=== PATIENT | female | born 1975 | race American Indian/Alaskan Native ===

== ENCOUNTER 2016-10-03 19:22 | Emergency (ER) | payer MEDICARE ==
--- NOTE | 2016-10-03 20:10 | Emergency Department Report ---
Chief Complaint: Chest Pain Stated Complaint: HEAD PAIN Time Seen by Provider: 10/03/16 20:04 - HPI History of Present Illness: 41-year-old female comes in for complaint of head pain chest pain. She reports that her headache and chest pain has started about an hour ago. She does admit to urinating a lot denies any nausea vomiting or diarrhea. Patient has a past medical history of bipolar. She has been out of her Benztropine and Simvastatin. - Exam Vital Signs: Vital Signs 10/03/16 20:00 Temperature 97.9 F Pulse Rate 81 Respiratory 18 Rate Blood Pressure 123/55 O2 Sat by Pulse 100 Oximetry Physical Exam: Since alert pressure speech little shaky fine tremors, cardiovascular S1-S2 regular rate and rhythm respiratory she is clear to auscultation bilateral neuro heal to leigh intact Romberg intact tongue protrusion with deviation to the right and left is intact able to shrug shoulders gag reflex intact. MSE screening note: Focused history and physical exam performed. Due to findings the following was ordered: ED Disposition for MSE Condition: Stable
[2016-10-03 20:47] LABS: Anion Gap 19 mmol/L; BUN/Creatinine Ratio 21.42; Basophils % (Auto) 0.8 % (0.0-1.8); Blood Urea Nitrogen 15 mg/dL (7-17); Calcium 9.4 mg/dL (8.4-10.2); Carbon Dioxide 20 mmol/L (22-30); Chloride 98.8 mmol/L (98-107); Eosinophils % (Auto) 1.2 % (0.0-4.3); Glucose 85 mg/dL (65-100); Hematocrit 42.5 % (30.3-42.9); Hemoglobin 14.2 gm/dl (10.1-14.3); Mean Corpuscular HGB Conc 33 % (30-34); Mean Corpuscular Hemoglobin 30 pg (28-32); Mean Corpuscular Volume 90 fl (79-97); Platelet Count 229 K/mm3 (140-440); Red Blood Count 4.73 M/mm3 (3.65-5.03); Red Cell Distribution Width 15.1 % (13.2-15.2); Sodium 132 mmol/L (137-145); White Blood Count 8.5 K/mm3 (4.5-11.0)
[2016-10-03 20:55] LABS: Potassium 5.6 mmol/L (3.6-5.0)
[2016-10-04] MEDS ORDERED: FLEXERIL PO ONE (00:46)
--- NOTE | 2016-10-04 00:53 | Emergency Department Report ---
ED General Adult HPI - General Chief complaint: Chest Pain Stated complaint: HEAD PAIN Time Seen by Provider: 10/03/16 20:04 Source: patient Mode of arrival: Ambulatory Limitations: No Limitations - History of Present Illness Initial comments: 41-year-old female presents to the emergency department complaining of headache and chest pain. Headache is been present for approximately one day. Patient describes a tightness and throbbing in the back of her head. She reports associated blurry vision. She denies numbness or tingling. She is also complaining of chest pain that began approximately 30 minutes prior to arrival. Patient states she has had similar pains for the past several weeks. She recently underwent testing including nuclear medicine testing on her heart at [facility]. Patient describes sharp pain in center of her chest that does not radiate. She denies associated shortness of breath, diaphoresis, nausea, or vomiting. There are no other complaints. -: Gradual, days(s) (1) Location: head, chest Radiation: non-radiation Severity scale (0 -10): 8 Quality: sharp, other (tightness) Consistency: intermittent Improves with: none Worsens with: none Associated Symptoms: denies other symptoms - Related Data Previous Rx's Medication Instructions Recorded Last Taken Type Ranitidine HCl [Zantac 300 MG TAB] 300 mg PO QPM #20 tablet 08/09/16 Unknown Rx Cyclobenzaprine [Flexeril] 10 mg PO TID PRN #30 tablet 10/04/16 Unknown Rx Allergies Allergy/AdvReac Type Severity Reaction Status Date / Time acetaminophen [From Midol] Allergy Unknown Verified 08/09/16 12:45 haloperidol [From Haldol] Allergy Unknown Verified 08/09/16 12:45 haloperidol lactate Allergy Unknown Verified 08/09/16 12:45 [From Haldol] hydroxyzine HCl Allergy Unknown Verified 08/09/16 12:45 [From Vistaril] hydroxyzine pamoate Allergy Unknown Verified 08/09/16 12:45 [From Vistaril] iodine Allergy Headache Verified 08/09/16 12:45 pamabrom [From Midol] Allergy Unknown Verified 08/09/16 12:45 Sulfa (Sulfonamide Allergy Unknown Verified 08/09/16 12:45 Antibiotics) zolpidem tartrate Allergy Unknown Verified 08/09/16 12:45 [From Ambien] latex AdvReac Itching Verified 08/09/16 12:46 lorazepam [From Ativan] AdvReac Hives Verified 08/09/16 12:45 potassium AdvReac Swelling Verified 08/09/16 12:45 risperidone [From Risperdal] AdvReac Unknown Verified 08/09/16 12:45 ED Review of Systems ROS: Stated complaint: HEAD PAIN Other details as noted in HPI Comment: All other systems reviewed and negative Eyes: vision change Cardiovascular: chest pain Neurological: headache ED Past Medical Hx - Past Medical History Previous Medical History?: Yes Hx Hypertension: Yes Hx Deep Vein Thrombosis: Yes Hx Seizures: Yes Hx Psychiatric Treatment: Yes (bipolar / SCHIZOAFFECTIVE DISORDER) - Surgical History Past Surgical History?: Yes Hx Cholecystectomy: Yes Additional Surgical History: hysterectomy. cervical fusion - Family History Family history: no significant - Social History Smoking Status: Never Smoker Substance Use Type: None - Medications Home Medications: Home Medications Medication Instructions Recorded Confirmed Last Taken Type Ranitidine HCl [Zantac 300 MG TAB] 300 mg PO QPM #20 tablet 08/09/16 10/04/16 Unknown Rx Cyclobenzaprine [Flexeril] 10 mg PO TID PRN #30 tablet 10/04/16 Unknown Rx ED Physical Exam - General Limitations: No Limitations General appearance: alert, in no apparent distress - Head Head exam: Present: atraumatic, normocephalic - Eye Eye exam: Present: normal appearance, PERRL, EOMI - ENT ENT exam: Present: normal exam, normal orophraynx, mucous membranes moist - Neck Neck exam: Present: normal inspection, tenderness (posterior cervical tenderness bilaterally extending into the occiput. No midline cervical tenderness noted.), full ROM - Respiratory Respiratory exam: Present: normal lung sounds bilaterally. Absent: respiratory distress, chest wall tenderness - Cardiovascular Cardiovascular Exam: Present: regular rate, normal rhythm, normal heart sounds - GI/Abdominal GI/Abdominal exam: Present: soft, normal bowel sounds. Absent: distended, tenderness - Extremities Exam Extremities exam: Present: normal inspection, full ROM. Absent: tenderness - Back Exam Back exam: Present: normal inspection, full ROM. Absent: tenderness - Neurological Exam Neurological exam: Present: alert, oriented X3. Absent: motor sensory deficit - Skin Skin exam: Present: warm, dry, intact ED Course Vital Signs 10/03/16 10/04/16 20:00 00:16 Temperature 97.9 F 98.4 F Pulse Rate 81 81 Respiratory 18 18 Rate Blood Pressure 123/55 Blood Pressure 110/66 [Left] O2 Sat by Pulse 100 100 Oximetry ED Medical Decision Making - Lab Data Result diagrams: 10/03/16 20:16 10/03/16 20:16 - EKG Data -: EKG Interpreted by Me EKG shows normal: sinus rhythm, axis, intervals, QRS complexes, ST-T waves Rate: normal - EKG Data When compared to previous EKG there are: no significant change Interpretation: normal EKG, unchanged when compared t (08/09/2016) - Medical Decision Making Lab results reviewed and discussed with the patient. Patient with muscle spasm likely causing her head pain. She has had a normal ECG with 2 negative troponins. Patient will be discharged home at this time to follow up with her primary care physician. - Differential Diagnosis atypical chest pain, tension-type headache, muscle spasm Critical care attestation.: If time is entered above; I have spent that time in minutes in the direct care of this critically ill patient, excluding procedure time. ED Disposition Clinical Impression: Muscle spasms of neck Disposition: DISCHARGED TO HOME OR SELFCARE Is pt being admited?: No Condition: Stable Instructions: Muscle Spasm (ED) Prescriptions: Cyclobenzaprine [Flexeril] 10 mg PO TID PRN #30 tablet PRN Reason: Muscle Spasm Referrals: PRIMARY CARE, [Primary Care Provider] - 3-5 Days Time of Disposition: 00:58
[2016-10-04 01:14] VITALS: BP 104/53
== END 2016-10-04 01:25 | disposition home or self-care (01) ==
LOC: ED 19:22
DX: M62.838 Other muscle spasm (principal); I10 Essential (primary) hypertension; R56.9 Unspecified convulsions; F31.9 Bipolar disorder, unspecified; F25.9 Schizoaffective disorder, unspecified; Z86.718 Personal history of other venous thrombosis and embolism; Z90.49 Acquired absence of other specified parts of digestive tract; Z90.710 Acquired absence of both cervix and uterus; Z88.2 Allergy status to sulfonamides; Z88.6 Allergy status to analgesic agent; Z91.040 Latex allergy status; Z88.8 Allergy status to other drugs, medicaments and biological substances
CPT/HCPCS: 36415; 80048; 84484; 85025; 93005; 93010; 99284

== ENCOUNTER 2016-12-03 08:18 | Inpatient (IN) | payer MEDICARE ==
[2016-12-03 09:47] LABS: Basophils % (Auto) 0.9 % (0.0-1.8); Hematocrit 43.4 % (30.3-42.9); Hemoglobin 14.1 gm/dl (10.1-14.3); Mean Corpuscular HGB Conc 33 % (30-34); Mean Corpuscular Hemoglobin 29 pg (28-32); Mean Corpuscular Volume 89 fl (79-97); Platelet Count 192 K/mm3 (140-440); Red Cell Distribution Width 15.1 % (13.2-15.2)
[2016-12-03 10:00] LABS: Alanine Aminotransferase 11 units/L (7-56); Albumin 4.3 g/dL (3.9-5); Albumin/Globulin Ratio 1.2 %; Alkaline Phosphatase 66 units/L (35-129); Anion Gap 16 mmol/L; Bilirubin,Total 0.5 mg/dL (0.1-1.2); Blood Urea Nitrogen 9 mg/dL (7-17); Calcium 10.3 mg/dL (8.4-10.2); Carbon Dioxide 23 mmol/L (22-30); Chloride 99.7 mmol/L (98-107); Glucose 94 mg/dL (65-100); Lipase 22 units/L (13-60); Potassium 4.4 mmol/L (3.6-5.0); Sodium 134 mmol/L (137-145); Total Protein 7.9 g/dL (6.3-8.2)
[2016-12-03 10:01] LABS: Bilirubin,Urine NEG (Negative); Blood,Urine NEG (Negative); Ketones,Urine NEG (Negative); Leukocyte Esterase,Urine NEG (Negative); Mucus,Urine FEW /HPF; Nitrite,Urine NEG (Negative); Protein,Urine <15 mg/dL mg/dL (Negative); RBC,Urine < 1.0 /HPF (0.0-6.0); Urobilinogen,Urine < 2.0 mg/dL (<2.0); WBC,Urine < 1.0 /HPF (0.0-6.0)
--- NOTE | 2016-12-03 15:40 | Emergency Department Report ---
HPI - General Chief Complaint: Abdominal Pain Time Seen by Provider: 12/03/16 15:05 - HPI HPI: Room 17 The patient is a 41-year-old female presenting with a chief complaint of abdominal pain and swelling in addition to bilateral lower extremity pain and swelling. The patient states for 1 week she has had intermittent pain in the periumbilical region of the abdomen. Patient denies dysuria or hematuria. Patient denies nausea vomiting. Patient dishes also had bilateral lower extremity swelling. Patient states she noticed a weight gain and having hard stool. Patient denies suicidal or homicidal ideation. Patient denies auditory or visual hallucinations Location: [see above] Duration: One week Quality: Pain Severity: Moderate Modifying factors: [see above] Context: [see above] Mode of transportation: Unknown ED Past Medical Hx - Past Medical History Hx Hypertension: Yes Hx Congestive Heart Failure: Yes Hx Deep Vein Thrombosis: Yes Hx Seizures: Yes Hx Psychiatric Treatment: Yes (bipolar / SCHIZOAFFECTIVE DISORDER) - Surgical History Hx Cholecystectomy: Yes Additional Surgical History: hysterectomy. cervical fusion - Family History Family history: no significant - Social History Smoking Status: Never Smoker Substance Use Type: None - Medications Home Medications: Home Medications Medication Instructions Recorded Confirmed Last Taken Type Benztropine [Cogentin] 1 mg PO BID 12/03/16 12/03/16 12/03/16 07:00 History 1 MG Assaria Carbonate [Eskalith] 300 mg PO BID 12/03/16 12/03/16 12/03/16 07:00 History 300MG Multivitamin/Ferrous Sulfate 18 mg PO DAILY 12/03/16 12/03/16 Unknown History [One-Daily Cofov-Opo-Stji Tab] Pediatric Multivit Comb No.76 1 each PO DAILY 12/03/16 12/03/16 Unknown History [Flintstones Complete] Simvastatin [Zocor TAB] 40 mg PO QHS 12/03/16 12/03/16 Unknown History Ziprasidone HCl [Geodon] 80 mg PO QHS 12/03/16 12/03/16 Unknown History fluPHENAZine HCL [fluPHENAZine] 10 mg PO DAILY 12/03/16 12/03/16 12/03/16 07:00 History 10MG ED Review of Systems ROS: Stated complaint: ABD AREA SWOLLEN /LEGS Other details as noted in HPI Comment: All other systems reviewed and negative Constitutional: denies: chills, fever Eyes: denies: eye pain, eye discharge, vision change ENT: denies: ear pain, throat pain Respiratory: denies: cough, shortness of breath, wheezing Cardiovascular: denies: chest pain, palpitations Endocrine: no symptoms reported Gastrointestinal: abdominal pain. denies: nausea, vomiting Genitourinary: denies: urgency, dysuria, discharge Musculoskeletal: denies: back pain, joint swelling, arthralgia Skin: denies: rash, lesions Neurological: denies: headache, weakness, paresthesias Psychiatric: denies: auditory hallucinations, visual hallucinations, homicidal thoughts, suicidal thoughts Hematological/Lymphatic: denies: easy bleeding, easy bruising Physical Exam - Physical Exam Vital Signs: Vital Signs 12/03/16 12/03/16 08:45 14:50 Temperature 97.4 F L 98.5 F Pulse Rate 84 79 Respiratory 18 22 Rate Blood Pressure 131/86 Blood Pressure 127/74 [Left] O2 Sat by Pulse 100 98 Oximetry Physical Exam: GENERAL: The patient is well-developed well-nourished female lying on stretcher not appearing to be in acute distress. [] HEENT: Normocephalic. Atraumatic. Extraocular motions are intact. Patient has moist mucous membranes. NECK: Supple. Trachea midline CHEST/LUNGS: Clear to auscultation. There is no respiratory distress noted. HEART/CARDIOVASCULAR: Regular. There is no tachycardia. There is no gallop rub or murmur. ABDOMEN: Abdomen is soft, without rebound or guarding. Patient has normal bowel sounds. There is no abdominal distention. SKIN: There is no rash. There is no edema. There is no diaphoresis. NEURO: The patient is awake, alert, and oriented. The patient is cooperative. The patient has normal speech MUSCULOSKELETAL:There is no evidence of acute injury. ED Course Vital Signs 12/03/16 12/03/16 08:45 14:50 Temperature 97.4 F L 98.5 F Pulse Rate 84 79 Respiratory 18 22 Rate Blood Pressure 131/86 Blood Pressure 127/74 [Left] O2 Sat by Pulse 100 98 Oximetry - Consultations Consultation #1: 12/03/16 18:09 Poison control called 12/03/16 18:18 Was control recommends checking lithium level every 6 hours until downtrending 2 into the therapeutic range (less than 1.2). Recommends treating seizures with benzodiazepine as needed ED Medical Decision Making - Lab Data Result diagrams: 12/03/16 09:22 12/03/16 09:22 Laboratory Tests 12/03/16 12/03/16 12/03/16 09:22 09:22 09:22 WBC 6.0 RBC 4.90 Hgb 14.1 Hct 43.4 H MCV 89 MCH 29 MCHC 33 RDW 15.1 Plt Count 192 Lymph % (Auto) 25.6 [place] % (Auto) 10.1 H Eos % (Auto) 1.0 Baso % (Auto) 0.9 Lymph # 1.5 [place] # 0.6 Eos # 0.1 Baso # 0.1 Seg Neutrophils % 62.4 Seg Neutrophils # 3.8 Sodium 134 L Potassium 4.4 Chloride 99.7 Carbon Dioxide 23 Anion Gap 16 BUN 9 Creatinine 0.6 L Estimated GFR > 60 BUN/Creatinine Ratio 15.00 Glucose 94 Calcium 10.3 H Total Bilirubin 0.5 AST 15 ALT 11 Alkaline Phosphatase 66 Troponin T < 0.010 NT-Pro-B Natriuret Pep Total Protein 7.9 Albumin 4.3 Albumin/Globulin Ratio 1.2 Lipase 22 Urine Color Urine Turbidity Urine pH Ur Specific [place] Urine Protein Urine Glucose (UA) Urine Ketones Urine Blood Urine Nitrite Urine Bilirubin Urine Urobilinogen Ur Leukocyte Esterase Urine WBC (Auto) Urine RBC (Auto) U Epithel Cells (Auto) Urine Mucus Assaria 12/03/16 12/03/16 12/03/16 09:22 09:32 13:16 WBC RBC Hgb Hct MCV MCH MCHC RDW Plt Count Lymph % (Auto) [place] % (Auto) Eos % (Auto) Baso % (Auto) Lymph # [place] # Eos # Baso # Seg Neutrophils % Seg Neutrophils # Sodium Potassium Chloride Carbon Dioxide Anion Gap BUN Creatinine Estimated GFR BUN/Creatinine Ratio Glucose Calcium Total Bilirubin AST ALT Alkaline Phosphatase Troponin T < 0.010 NT-Pro-B Natriuret Pep 13.21 Total Protein Albumin Albumin/Globulin Ratio Lipase Urine Color Yellow Urine Turbidity Clear Urine pH 7.[address] 1.013 Urine Protein <15 mg/dl Urine Glucose (UA) Neg Urine Ketones Neg Urine Blood Neg Urine Nitrite Neg Urine Bilirubin Neg Urine Urobilinogen < 2.0 Ur Leukocyte Esterase Neg Urine WBC (Auto) < 1.0 Urine RBC (Auto) < 1.0 U Epithel Cells (Auto) 3.0 Urine Mucus Few [place] 03/16/17 03/16/17 15:04 15:43 WBC RBC Hgb Hct MCV MCH MCHC RDW Plt Count Lymph % (Auto) [place] % (Auto) Eos % (Auto) Baso % (Auto) Lymph # [place] # Eos # Baso # Seg Neutrophils % Seg Neutrophils # Sodium Potassium Chloride Carbon Dioxide Anion Gap BUN Creatinine Estimated GFR BUN/Creatinine Ratio Glucose Calcium Total Bilirubin AST ALT Alkaline Phosphatase Troponin T < 0.010 NT-Pro-B Natriuret Pep Total Protein Albumin Albumin/Globulin Ratio Lipase Urine Color Urine Turbidity Urine pH Ur Specific [place] [address] Urine Protein Urine Glucose (UA) Urine Ketones Urine Blood Urine Nitrite Urine Bilirubin Urine Urobilinogen Ur Leukocyte Esterase Urine WBC (Auto) Urine RBC (Auto) U Epithel Cells (Auto) Urine Mucus [place] 2.1 H* - EKG Data -: EKG Interpreted by Me EKG shows normal: sinus rhythm Rate: normal - EKG Data When compared to previous EKG there are: no significant change Interpretation: unchanged when compared t (10/03/2016), nonspecific ST-T wave gaby - Radiology Data Radiology results: report reviewed (CT abdomen and pelvis, bilateral lower extremity Doppler), image reviewed (CT abdomen and pelvis, bilateral lower extremity Doppler) CT abdomen and pelvis (read by radiologist)-no acute inflammatory processes identified. No evidence of hydronephrosis or ureterolithiasis. Mild to moderate volume of stool is seen throughout the colon suggesting constipation. Bilateral lower extremity Doppler (read by the technologist)- CHRONIC DVT NOTED IN LT SFV (ELMER), VESSEL ALSO APPEARS ATRETIC - Differential Diagnosis DVTs, gastritis, pancreatitis Critical care attestation.: If time is entered above; I have spent that time in minutes in the direct care of this critically ill patient, excluding procedure time. ED Disposition Clinical Impression: Assaria toxicity, Chronic deep vein thrombosis (DVT) of lower extremity Disposition: OP ADMITTED IP TO THIS HOSP Is pt being admited?: Yes Does the pt Need Aspirin: Yes Condition: Stable Instructions: Abdominal Pain (ED) Referrals: PRIMARY CARE, [Primary Care Provider] - 3-5 Days Time of Disposition: 18:22 (hospitalist notified)
--- NOTE | 2016-12-03 16:52 | Cat Scan Report ---
FINAL REPORT PROCEDURE: CT ABDOMEN PELVIS WO CON TECHNIQUE: Computerized axial tomography of the abdomen and pelvis was performed without intravenous contrast. This study is performed without intravascular contrast material and its sensitivity for abdominal and pelvic pathology, including neoplasms, inflammation, abscess, free fluid, thrombosis, arterial dissection and infarction, is reduced compared with a contrast enhanced study. HISTORY: periumbilical abdominal pain COMPARISON: No prior studies are available for comparison. FINDINGS: Visualized lower thorax: No significant abnormality. Liver: Normal size and attenuation. Spleen: Normal size and attenuation. Gallbladder and biliary system: There has been cholecystectomy. Pancreas: Normal. Adrenals: Normal. Kidneys: Normal. GI tract: The appendix is visualized and does not appear inflamed. No bowel obstruction or acute inflammation is seen. There is mild to moderate volume of stool in the colon Lymph nodes and mesentery: Normal. Vasculature: Normal. Bladder: Normal. Reproductive organs: Uterus is not visualized. Peritoneum: No free fluid. Musculoskeletal structures: No significant abnormality. Other: None. IMPRESSION: No acute inflammatory process is identified. No evidence of hydronephrosis or urolithiasis. Mild to moderate volume of stool is seen throughout the colon, suggesting constipation.
--- NOTE | 2016-12-03 18:24 | Admit Criteria Form ---
Admission Criteria Documentation: DEEP VENOUS THROMBOSIS OF LOWER EXTREMITIES Clinical Indications for Admission to Inpatient Care ( Place 'X' for any and all applicable criteria): Admission is indicated for ANY ONE of the following (1)(2)(3)(4): [ ]I. Documented extensive thrombosis (e.g., clot in vena cava or above iliofemoral bifurcation) [ ]II. Limb-threatening thrombosis (e.g., phlegmasia cerulea dolens) [ ]III. Active bleeding [ ]IV. Recent surgery (e.g., within 6 weeks) [ ]V. Active peptic ulcer disease [ ]. Thrombosis while on anticoagulation [ ]VII. [X]VIII. Appropriate monitoring and therapy cannot be provided in home or outpatient setting [ ]IX. Thrombolysis (e.g., catheter-directed) or pharmaco mechanical thrombectomy needed (3) [ ]X. Vena cava filter placement planned (3) [ ]XI. Severely diminished cardiopulmonary reserve (e.g., pulmonary hypertension) [ ]XII. Severe renal failure (e.g., GFR less than 30 mL/min/1.73m2 (0.5 mL/sec /1.73m2)) [ ]XIII. Known clotting abnormality or deficiency (antithrombin III, protein C , or protein S) [ ]XIV. History of heparin-induced thrombocytopenia [ ]XV . Personal or family history of bleeding tendency or familial bleeding disorder that requires inpatient admission rather than observation care (Also use Deep Venous Thrombosis of Lower Extremities: Observation Care as appropriate) because of ANY ONE of the following: [ ]a) Significant allergic, autoimmune (thrombocytopenia), or coagulopathic reaction occurs in response to anticoagulation [ ]b) Other significant finding or clinical condition judged not to be within the scope of observation care Extended stay beyond goal length of stay may be needed for(1)(19): [ ]a) Hemorrhage or recent surgery(3) [ ]b) Inadequate oral anticoagulation [ ]c) Recurrent thromboembolism(3) [ ]d) Heparin-induced thrombocytopenia(14) The original [facility] content created by [facility] has been revised. The portions of the content which have been revised are identified through the use of italic text or in bold, and [facility] has neither reviewed nor approved the modified material. All other unmodified content is copyright [facility]. Please see references footnoted in the original [facility] edition 2016 Admission Criteria Met: Yes
[2016-12-03] MEDS ORDERED: ZOFRAN IV PRN (18:32)
[2016-12-03] MEDS ORDERED: DULCOLAX PR PRN (18:32)
[2016-12-03] MEDS ORDERED: TYLENOL PO PRN (18:32)
[2016-12-03] MEDS ORDERED: MILK OF MAGNESIA PO PRN (18:32)
[2016-12-03] MEDS ORDERED: NORCO 5/325 PO PRN (18:32)
--- NOTE | 2016-12-03 18:43 | History and Physical Report ---
History of Present Illness Date of examination: 12/03/16 Date of admission: Lower extremity edema Chief complaint: Lower extremity edema History of present illness: 41-year-old female presents originally with a chief complaint of lower extremity edema. Patient had a history of chronic DVT therefore initial workup was for pulmonary embolism lower extremity edema. Patient labs were obtained and was found to have lithium toxicity with highest levels 2.1. Patient is therefore was admitted for lithium toxicity. Patient at present does not show any evidence of electrolyte abnormalities no EKG changes. And is currently hematemesis stable. At present patient does not have any diarrhea but does have some dizziness no nausea. No stomach pains no vomiting no unusual weakness. Patient denies any coma denies hand tremors. Questionable lack of coordination of legs. No muscle twitching no seizure slurred speech. No uncontrollable movement. Past History Past Medical History: other (bipolar). denies: acute SC, arrhythmia, arthritis , dialysis, ESRD, hypertension, liver disease, pulmonary embolism Past Surgical History: No surgical history Social history: lives with family. denies: smoking, alcohol abuse, prescription drug abuse, full code Family history: no significant family history Medications and Allergies Allergies Allergy/AdvReac Type Severity Reaction Status Date / Time acetaminophen [From Midol] Allergy Unknown Verified 12/03/16 08:52 haloperidol [From Haldol] Allergy Unknown Verified 12/03/16 08:52 haloperidol lactate Allergy Unknown Verified 12/03/16 08:52 [From Haldol] hydroxyzine HCl Allergy Unknown Verified 12/03/16 08:52 [From Vistaril] hydroxyzine pamoate Allergy Unknown Verified 12/03/16 08:52 [From Vistaril] iodine Allergy Headache Verified 12/03/16 08:52 pamabrom [From Midol] Allergy Unknown Verified 12/03/16 08:52 Sulfa (Sulfonamide Allergy Unknown Verified 12/03/16 08:52 Antibiotics) zolpidem tartrate Allergy Unknown Verified 12/03/16 08:52 [From Ambien] latex AdvReac Itching Verified 12/03/16 08:52 lorazepam [From Ativan] AdvReac Hives Verified 12/03/16 08:52 potassium AdvReac Swelling Verified 12/03/16 08:52 risperidone [From Risperdal] AdvReac Unknown Verified 12/03/16 08:52 Home Medications Medication Instructions Recorded Confirmed Last Taken Type Benztropine [Cogentin] 1 mg PO BID 12/03/16 12/03/16 12/03/16 07:00 History 1 MG [place] Carbonate [Eskalith] 300 mg PO BID 12/03/16 12/03/16 12/03/16 07:00 History 300MG Multivitamin/Ferrous Sulfate 18 mg PO DAILY 12/03/16 12/03/16 Unknown History [One-Daily [place]-Bcn-Kxpw Tab] Pediatric Multivit Comb No.76 1 each PO DAILY 12/03/16 12/03/16 Unknown History [Flintstones Complete] Simvastatin [Zocor TAB] 40 mg PO QHS 12/03/16 12/03/16 Unknown History Ziprasidone HCl [Geodon] 80 mg PO QHS 12/03/16 12/03/16 Unknown History fluPHENAZine HCL [fluPHENAZine] 10 mg PO DAILY 12/03/16 12/03/16 12/03/16 07:00 History 10MG Review of Systems Constitutional: no weight loss, no weight gain, no chills, no sweats, no anorexia, no fatigue, no weakness, no malaise, no lethargy, no other Ears, nose, mouth and throat: no ear pain, no ear discharge, no nasal congestion , no nasal discharge, no bleeding gums, no mouth pain, no hoarseness, no post- nasal drip, no headache, no pain front of neck, no neck fullness/pressure, no neck lump Breasts: no swelling Cardiovascular: leg edema, no chest pain, no orthopnea, no rapid/irregular heart beat, no edema, no lightheadedness, no dyspnea on exertion, no paroxysmal nocturnal dyspnea, no claudication, no phlebitis Respiratory: no cough, no cough with sputum, no excessive sputum, no hemoptysis , no shortness of breath, no dyspnea on exertion, no congestion, no wheezing, no pain on inspiration, no home oxygen, no other Gastrointestinal: nausea, heartburn, no vomiting, no diarrhea, no constipation, no change in bowel habits, no BRBPR, no melena, no loss of appetite, no indigestion, no belching, no excessive gas, no dyspepsia/bloating, no early satiety Genitourinary Female: no dyspareunia, no dysmenorrhea, no menorrhagia, no urinary frequency, no stress incontinence, no post void dribbling, no incomplete emptying Musculoskeletal: no shooting leg pain, no leg numbness/tingling, no redness of joints, no hot joints, no morning stiffness, no myalgias, no atrophy, no fractures, no loss of height, no arthritis Integumentary: no deferred, no rash, no pruritis, no sores, no jaundice, no growths, no darkening of skin, no depigmentation, no acne, no dryness, no change in hair/nails, no onychomycosis Neurological: weakness, numbness, lack of coordination, no head injury, no transient paralysis, no paralysis, no parathesias, no tingling, no seizures, no syncope, no tremors, no ataxia, no vertigo, no headaches, no migraines, no convulsions, no aphasia, no change in speech, no change in mentation, no confusion, no memory loss, no gait dysfunction, no sensory deficit, no hearing difficulties, no burning pain, no paralysis, no spasticity Psychiatric: anxiety, sleep disturbances, depression, sadness/tearfullness, no memory loss, no change in sleep habits, no insomnia, no hypersomnia, no change in appetite, no change in libido, no suicidal ideation, no disorientation, no hallucinations, no paranoia, no hopelessness, no anhedonia, no anxiety attacks, no difficulties concentrating, no confusion, no irritability, no mood swings Endocrine: no cold intolerance, no heat intolerance, no polyphagia, no excessive thirst, no polydipsia, no polyuria, no nocturia, no excessive sweating , no increase in ring/shoe/hat size, no proptosis, no deepening of the voice, no palpatations, no high blood sugars, no recent glucocorticoid use, no fatigue Hematologic/Lymphatic: no easy bruising, no thrombophilia Allergic/Immunologic: no persistent infections, no seasonal allergies Exam - Constitutional Vitals: Temp Pulse Resp BP Pulse Ox 98.5 F 88 18 124/90 100 12/03/16 14:50 12/03/16 17:01 12/03/16 17:01 12/03/16 17:01 12/03/16 17:01 General appearance: Present: no acute distress, well-nourished, disheveled - EENT Eyes: Present: PERRL ENT: hearing intact, clear oral mucosa - Neck Neck: Present: supple, normal ROM - Respiratory Respiratory effort: normal Respiratory: bilateral: CTA - Cardiovascular Heart Sounds: Present: S1 & S2. Absent: rub, click - Extremities Extremities: pulses symmetrical, No edema Extremity abnormal: other (no significant edema at all in the abdomen or lower extremity.) Peripheral Pulses: within normal limits - Abdominal General gastrointestinal: Present: soft, non-tender, non-distended, normal bowel sounds, other (no significant edema ascites at all.) Female genitourinary: Present: normal - Integumentary Integumentary: Present: clear, warm, dry - Musculoskeletal Musculoskeletal: gait normal, strength equal bilaterally - Psychiatric Psychiatric: appropriate mood/affect, intact judgment & insight - Neurologic Neurologic: CNII-XII intact, moves all extremities Results - Labs CBC & Chem 7: 12/03/16 09:22 12/03/16 09:22 Labs: Laboratory Last Values WBC 6.0 K/mm3 (4.5-11.0) 12/03/16 09:22 RBC 4.90 M/mm3 (3.65-5.03) 12/03/16 09:22 Hgb 14.1 gm/dl (10.1-14.3) 12/03/16 09:22 Hct 43.4 % (30.3-42.9) H 12/03/16 09:22 MCV 89 fl (79-97) 12/03/16 09:22 MCH 29 pg (28-32) 12/03/16 09:22 MCHC 33 % (30-34) 12/03/16 09:22 RDW 15.1 % (13.2-15.2) 12/03/16 09:22 Plt Count 192 K/mm3 (140-440) 12/03/16 09:22 Lymph % (Auto) 25.6 % (13.4-35.0) 12/03/16 09:22 [place] % (Auto) 10.1 % (0.0-7.3) H 12/03/16 09:22 Eos % (Auto) 1.0 % (0.0-4.3) 12/03/16 09:22 Baso % (Auto) 0.9 % (0.0-1.8) 12/03/16 09:22 Lymph # 1.5 K/mm3 (1.2-5.4) 12/03/16 09:22 [place] # 0.6 K/mm3 (0.0-0.8) 12/03/16 09:22 Eos # 0.1 K/mm3 (0.0-0.4) 12/03/16 09:22 Baso # 0.1 K/mm3 (0.0-0.1) 12/03/16 09:22 Seg Neutrophils % 62.4 % (40.0-70.0) 12/03/16 09:22 Seg Neutrophils # 3.8 K/mm3 (1.8-7.7) 12/03/16 09:22 Sodium 134 mmol/L (137-145) L 12/03/16 09:22 Potassium 4.4 mmol/L (3.6-5.0) 12/03/16 09:22 Chloride 99.7 mmol/L (98-107) 12/03/16 09:22 Carbon Dioxide 23 mmol/L (22-30) 12/03/16 09:22 Anion Gap 16 mmol/L 12/03/16 09:22 BUN 9 mg/dL (7-17) 12/03/16 09:22 Creatinine 0.6 mg/dL (0.7-1.2) L 12/03/16 09:22 Estimated GFR > 60 ml/min 12/03/16 09:22 BUN/Creatinine Ratio 15.00 % 12/03/16 09:22 Glucose 94 mg/dL (65-100) 12/03/16 09:22 Calcium 10.3 mg/dL (8.4-10.2) H 12/03/16 09:22 Total Bilirubin 0.5 mg/dL (0.1-1.2) 12/03/16 09:22 AST 15 units/L (5-40) 12/03/16 09:22 ALT 11 units/L (7-56) 12/03/16 09:22 Alkaline Phosphatase 66 units/L (35-129) 12/03/16 09:22 Troponin T < 0.010 ng/mL (0.00-0.029) 12/03/16 15:04 NT-Pro-B Natriuret Pep 13.21 pg/mL (0-450) 12/03/16 09:22 Total Protein 7.9 g/dL (6.3-8.2) 12/03/16 09:22 Albumin 4.3 g/dL (3.9-5) 12/03/16 09:22 Albumin/Globulin Ratio 1.2 % 12/03/16 09:22 Lipase 22 units/L (13-60) 12/03/16 09:22 Urine Color Yellow (Yellow) 12/03/16 09:32 Urine Turbidity Clear (Clear) 12/03/16 09:32 Urine pH 7.0 (5.0-7.0) 12/03/16 09:32 Ur Specific [place] 1.013 (1.003-1.030) 12/03/16 09:32 Urine Protein <15 mg/dl mg/dL (Negative) 12/03/16 09:32 Urine Glucose (UA) Neg mg/dL (Negative) 12/03/16 09:32 Urine Ketones Neg mg/dL (Negative) 12/03/16 09:32 Urine Blood Neg (Negative) 12/03/16 09:32 Urine Nitrite Neg (Negative) 12/03/16 09:32 Urine Bilirubin Neg (Negative) 12/03/16 09:32 Urine Urobilinogen < 2.0 mg/dL (<2.0) 12/03/16 09:32 Ur Leukocyte Esterase Neg (Negative) 12/03/16 09:32 Urine WBC (Auto) < 1.0 /HPF (0.0-6.0) 12/03/16 09:32 Urine RBC (Auto) < 1.0 /HPF (0.0-6.0) 12/03/16 09:32 U Epithel Cells (Auto) 3.0 /HPF (0-13.0) 12/03/16 09:32 Urine Mucus Few /HPF 12/03/16 09:32 [place] 2.1 mmol/L (0.0-1.2) H* 12/03/16 15:43 - Imaging and Cardiology EKG: image reviewed Chest x-ray: image reviewed CT scan - abdomen: image reviewed Venous US: image reviewed Assessment and Plan Advance Directives: Yes VTE prophylaxis?: Chemical Reason for no VTE Prophylaxis: Anticoagulant allergy Plan of care discussed with patient/family: Yes - Patient Problems (1) Chronic deep vein thrombosis (DVT) of lower extremity Current Visit: Yes Status: Acute Qualifiers: Affected thrombotic vein of extremity: A Laterality: L Plan to address problem: No DVT has been ruled out. No edema on lower extremities no edema on abdomen. (2) [place] toxicity Current Visit: Yes Status: Acute Qualifiers: Encounter type: E Injury intent: I Plan to address problem: Patient with lithium toxicity will treat aggressively with IV fluids we'll recheck the lithium in 6 hours and again in another 6 hours to ensure is declined. HEENT for goal of 1.2 mg prior to discharge. Otherwise Hemodynamically stable. (3) Lower leg edema Current Visit: Yes Status: Acute Plan to address problem: Edema has resolved. The complaints of edema may be supratentorial because I did not see any at all.
[2016-12-03] MEDS ORDERED: DUONEB 0.5 MG-3 MG/3 ML SOLN IH SCH (20:00)
[2016-12-03] MEDS: NACL 0.9% 1000 ML 1,000 ML IV SCH (21:50)
[2016-12-03] MEDS: COGENTIN PO SCH (21:50)
[2016-12-03] MEDS ORDERED: NON-FORMULARY (Ziprasidone Hcl [Geodon] 80 MG) PO SCH (22:00)
[2016-12-03] MEDS ORDERED: GEODON PO SCH (22:00)
[2016-12-03] MEDS ORDERED: ZOCOR PO SCH (22:00)
[2016-12-04] MEDS: NACL 0.9% 1000 ML 1,000 ML IV SCH (05:23)
[2016-12-04 05:32] LABS: Basophils % (Auto) 0.5 % (0.0-1.8); Eosinophils % (Auto) 1.5 % (0.0-4.3); Hematocrit 38.8 % (30.3-42.9); Hemoglobin 12.6 gm/dl (10.1-14.3); Mean Corpuscular HGB Conc 32 % (30-34); Mean Corpuscular Hemoglobin 29 pg (28-32); Mean Corpuscular Volume 89 fl (79-97); Platelet Count 178 K/mm3 (140-440); Red Blood Count 4.35 M/mm3 (3.65-5.03); White Blood Count 5.7 K/mm3 (4.5-11.0)
[2016-12-04 05:55] LABS: Alanine Aminotransferase 8 units/L (7-56); Albumin 3.7 g/dL (3.9-5); Albumin/Globulin Ratio 1.3 %; Alkaline Phosphatase 54 units/L (35-129); Anion Gap 15 mmol/L; Bilirubin,Total 0.6 mg/dL (0.1-1.2); Blood Urea Nitrogen 12 mg/dL (7-17); Calcium 8.8 mg/dL (8.4-10.2); Carbon Dioxide 24 mmol/L (22-30); Chloride 105.3 mmol/L (98-107); Glucose 101 mg/dL (65-100); Potassium 4.2 mmol/L (3.6-5.0); Sodium 140 mmol/L (137-145); Total Protein 6.5 g/dL (6.3-8.2)
--- NOTE | 2016-12-04 07:53 | Vascular Lab Report ---
LOWER EXTREMITY VENOUS DUPLEX: REASON FOR EXAM: Bilateral leg swelling. COMMENTS ON THE RIGHT: All veins visualized are freely compressible without evidence of internal echogenicity. Flow is spontaneous and phasic throughout. COMMENTS ON THE LEFT: Chronic deep venous thrombosis noted in the femoral vein. The remaining veins visualized are freely compressible without evidence of internal echogenicity. Spontaneous and phasic flow is present proximally. IMPRESSION: Chronic deep venous thrombosis in the left lower extremity
[2016-12-04] MEDS: DUONEB 0.5 MG-3 MG/3 ML SOLN IH SCH ×2 (07:56→13:40)
[2016-12-04 09:32] VITALS: BP 116/69
--- NOTE | 2016-12-04 09:56 | Discharge Summary ---
Providers - Providers Date of Admission: 12/03/16 18:23 Date of discharge: 12/04/16 Attending physician: SELINA WADDELL Primary care physician: NICHOLAS PURCELL MD Hospitalization Condition: Fair Disposition: DISCHARGED TO HOME OR SELFCARE - Discharge Diagnoses (1) Chronic deep vein thrombosis (DVT) of lower extremity Status: Acute Qualifiers: Affected thrombotic vein of extremity: A Laterality: L (2) [place] toxicity Status: Acute Qualifiers: Encounter type: E Injury intent: I Exam - Constitutional Vitals: Temp Pulse Resp BP Pulse Ox 98.2 F 88 18 116/69 100 12/04/16 08:00 12/04/16 08:00 12/04/16 08:00 12/04/16 08:00 12/04/16 08:00 Plan Activity: no restrictions Diet: low fat, low cholesterol Additional Instructions: 1.Follow up chronic DVT lower ext with PCP in 1 week. Follow up with: PRIMARY CARE, [Primary Care Provider] - 3-5 Days Prescriptions: [place] Carbonate [Eskalith] 150 mg PO BID #60 capsule
[2016-12-04] MEDS ORDERED: FERROUS SULFATE PO SCH (10:00)
[2016-12-04] MEDS ORDERED: Centrum Liq PO SCH (10:00)
[2016-12-04] MEDS ORDERED: MULTIVITAMIN PO SCH (10:00)
[2016-12-04] MEDS ORDERED: [UNRECOGNIZED DRUG - OTHER] PO SCH (10:00)
[2016-12-04] MEDS ORDERED: LOVENOX SUB-Q SCH (10:00)
[2016-12-04] MEDS: COGENTIN PO SCH (10:09)
[2016-12-04] MEDS ORDERED: FLUARIX QUAD 2016-2017(36 MOS+) IM ONE (12:00)
[2016-12-04] MEDS ORDERED: PNEUMOVAX 23 IM ONE (12:00)
== END 2016-12-04 15:30 | disposition home or self-care (01) | DRG 918 ==
LOC: ED 08:18 → 3A 18:23
PROVIDERS: ADMIT Internal Medicine; ATTEND Internal Medicine
DX: T43.591A Poisoning by other antipsychotics and neuroleptics, accidental (unintentional), initial encounter (principal); I82.509 Chronic embolism and thrombosis of unspecified deep veins of unspecified lower extremity; I50.9 Heart failure, unspecified; I11.0 Hypertensive heart disease with heart failure; F31.9 Bipolar disorder, unspecified; F20.9 Schizophrenia, unspecified; Z90.49 Acquired absence of other specified parts of digestive tract; Z90.710 Acquired absence of both cervix and uterus; Z88.8 Allergy status to other drugs, medicaments and biological substances; Z88.2 Allergy status to sulfonamides; Z91.040 Latex allergy status; Y92.89 Other specified places as the place of occurrence of the external cause
CPT/HCPCS: 36415; 74176; 80053; 80178; 81001; 83690; 83880; 84484; 85025; 90686; 90732; 93005; 93010; 93970; 94640; J1650; J7030

== ENCOUNTER 2016-12-21 22:01 | Emergency (ER) | payer MEDICARE ==
[2016-12-21 23:54] LABS: Basophils % (Auto) 0.7 % (0.0-1.8); Eosinophils % (Auto) 2.9 % (0.0-4.3); Hematocrit 41.1 % (30.3-42.9); Hemoglobin 13.4 gm/dl (10.1-14.3); Mean Corpuscular HGB Conc 33 % (30-34); Mean Corpuscular Hemoglobin 29 pg (28-32); Mean Corpuscular Volume 89 fl (79-97); Platelet Count 190 K/mm3 (140-440); Red Cell Distribution Width 14.7 % (13.2-15.2); White Blood Count 6.3 K/mm3 (4.5-11.0)
[2016-12-21 23:59] LABS: Alanine Aminotransferase 10 units/L (7-56); Albumin 4.1 g/dL (3.9-5); Albumin/Globulin Ratio 1.2 %; Alkaline Phosphatase 65 units/L (35-129); Anion Gap 16 mmol/L; Bilirubin,Total 0.3 mg/dL (0.1-1.2); Blood Urea Nitrogen 14 mg/dL (7-17); Calcium 9.1 mg/dL (8.4-10.2); Carbon Dioxide 26 mmol/L (22-30); Glucose 95 mg/dL (65-100); Lipase 29 units/L (13-60); Potassium 4.2 mmol/L (3.6-5.0); Sodium 138 mmol/L (137-145); Total Protein 7.4 g/dL (6.3-8.2)
[2016-12-22 00:38] LABS: Bilirubin,Urine NEG (Negative)
[2016-12-22 00:39] LABS: Blood,Urine NEG (Negative); Ketones,Urine NEG (Negative); Leukocyte Esterase,Urine NEG (Negative); Mucus,Urine FEW /HPF; Nitrite,Urine NEG (Negative); Protein,Urine <15 mg/dL mg/dL (Negative); RBC,Urine < 1.0 /HPF (0.0-6.0); Urobilinogen,Urine < 2.0 mg/dL (<2.0); WBC,Urine < 1.0 /HPF (0.0-6.0)
--- NOTE | 2016-12-22 08:35 | Emergency Department Report ---
ED Abdominal Pain HPI - General Chief Complaint: Abdominal Pain Stated Complaint: LEG/ABD PAIN Time Seen by Provider: 12/22/16 08:06 Source: patient, EMS Mode of arrival: Ambulatory Limitations: No Limitations - History of Present Illness Initial Comments: 41-year-old female presents to the emergency department complaining of bilateral leg swelling and swelling in her abdomen. Patient states symptoms began yesterday. Patient reports a tightness in her abdomen. There is no radiation of this pain. She denies associated shortness of breath, nausea, vomiting, or diarrhea. Review of nursing notes show that the patient was also complaining of back pain and painful urination. Patient is denying these symptoms to me. There are no other complaints. MD Complaint: abdominal pain -: Gradual, days(s) (1) Location: diffuse Radiation: none Migration to: no migration Severity scale (0 -10): 10 Quality: other (tightness) Consistency: constant Improves With: nothing Worsens With: nothing Associated Symptoms: other (leg swelling) - Related Data Home Medications Medication Instructions Recorded Confirmed Last Taken Benztropine [Cogentin] 1 mg PO BID 12/03/16 12/03/16 12/03/16 07:00 1 MG Multivitamin/Ferrous Sulfate 18 mg PO DAILY 12/03/16 12/03/16 Unknown [One-Daily Wdclq-Ond-Kqiz Tab] Pediatric Multivit Comb No.76 1 each PO DAILY 12/03/16 12/03/16 Unknown [Flintstones Complete] Simvastatin [Zocor TAB] 40 mg PO QHS 12/03/16 12/03/16 Unknown Ziprasidone HCl [Geodon] 80 mg PO QHS 12/03/16 12/03/16 Unknown fluPHENAZine HCL [fluPHENAZine] 10 mg PO DAILY 12/03/16 12/03/16 12/03/16 07:00 10MG Previous Rx's Medication Instructions Recorded Last Taken Type [place] Carbonate [Eskalith] 150 mg PO BID #60 capsule 12/04/16 Unknown Rx traMADol [Ultram] 50 mg PO Q6HR PRN #20 tablet 12/22/16 Unknown Rx Allergies Allergy/AdvReac Type Severity Reaction Status Date / Time acetaminophen [From Midol] Allergy Unknown Verified 12/03/16 08:52 haloperidol [From Haldol] Allergy Unknown Verified 12/03/16 08:52 haloperidol lactate Allergy Unknown Verified 12/03/16 08:52 [From Haldol] hydroxyzine HCl Allergy Unknown Verified 12/03/16 08:52 [From Vistaril] hydroxyzine pamoate Allergy Unknown Verified 12/03/16 08:52 [From Vistaril] iodine Allergy Headache Verified 12/03/16 08:52 pamabrom [From Midol] Allergy Unknown Verified 12/03/16 08:52 Sulfa (Sulfonamide Allergy Unknown Verified 12/03/16 08:52 Antibiotics) zolpidem tartrate Allergy Unknown Verified 12/03/16 08:52 [From Ambien] latex AdvReac Itching Verified 12/03/16 08:52 lorazepam [From Ativan] AdvReac Hives Verified 12/03/16 08:52 potassium AdvReac Swelling Verified 12/03/16 08:52 risperidone [From Risperdal] AdvReac Unknown Verified 12/03/16 08:52 trazodone AdvReac Swelling Verified 12/21/16 23:06 ED Review of Systems ROS: Stated complaint: LEG/ABD PAIN Other details as noted in HPI Comment: All other systems reviewed and negative Cardiovascular: edema Gastrointestinal: abdominal pain ED Past Medical Hx - Past Medical History Previous Medical History?: Yes Hx Hypertension: Yes Hx Heart Attack/AMI: No Hx Congestive Heart Failure: Yes Hx Diabetes: Yes Hx Deep Vein Thrombosis: Yes Hx Pulmonary Embolism: No Hx Seizures: Yes Hx Psychiatric Treatment: Yes (bipolar / SCHIZOAFFECTIVE DISORDER) Hx Asthma: No Hx COPD: No Hx Tuberculosis: No Hx HIV: No - Surgical History Past Surgical History?: Yes Hx Coronary Stent: No Hx Pacemaker: No Hx Internal Defibrillator: No Hx Cholecystectomy: Yes Additional Surgical History: hysterectomy. cervical fusion - Family History Family history: no significant - Social History Smoking Status: Never Smoker Substance Use Type: None - Medications Home Medications: Home Medications Medication Instructions Recorded Confirmed Last Taken Type Benztropine [Cogentin] 1 mg PO BID 12/03/16 12/03/16 12/03/16 07:00 History 1 MG Multivitamin/Ferrous Sulfate 18 mg PO DAILY 12/03/16 12/03/16 Unknown History [One-Daily Resck-Rox-Tjpv Tab] Pediatric Multivit Comb No.76 1 each PO DAILY 12/03/16 12/03/16 Unknown History [Flintstones Complete] Simvastatin [Zocor TAB] 40 mg PO QHS 12/03/16 12/03/16 Unknown History Ziprasidone HCl [Geodon] 80 mg PO QHS 12/03/16 12/03/16 Unknown History fluPHENAZine HCL [fluPHENAZine] 10 mg PO DAILY 12/03/16 12/03/16 12/03/16 07:00 History 10MG [place] Carbonate [Eskalith] 150 mg PO BID #60 capsule 12/04/16 Unknown Rx traMADol [Ultram] 50 mg PO Q6HR PRN #20 tablet 12/22/16 Unknown Rx ED Physical Exam - General Limitations: No Limitations General appearance: alert, in no apparent distress - Head Head exam: Present: atraumatic, normocephalic - Eye Eye exam: Present: normal appearance, PERRL, EOMI - ENT ENT exam: Present: normal exam, normal orophraynx, mucous membranes moist - Neck Neck exam: Present: normal inspection, full ROM. Absent: tenderness - Respiratory Respiratory exam: Present: normal lung sounds bilaterally. Absent: respiratory distress - Cardiovascular Cardiovascular Exam: Present: regular rate, normal rhythm, normal heart sounds - GI/Abdominal GI/Abdominal exam: Present: normal bowel sounds. Absent: soft, distended, tenderness - Extremities Exam Extremities exam: Present: normal inspection, full ROM, other (No pitting edema noted). Absent: tenderness - Back Exam Back exam: Present: normal inspection, full ROM. Absent: tenderness - Neurological Exam Neurological exam: Present: alert, oriented X3. Absent: motor sensory deficit - Skin Skin exam: Present: warm, dry, intact ED Course Vital Signs 12/21/16 12/22/16 12/22/16 23:06 04:18 05:56 Temperature 97.8 F 97.8 F Pulse Rate 75 79 92 H Respiratory 18 18 16 Rate Blood Pressure 114/74 136/81 O2 Sat by Pulse 100 100 Oximetry 12/22/16 12/22/16 12/22/16 06:01 06:05 06:10 Temperature Pulse Rate 86 84 Respiratory 19 22 18 Rate Blood Pressure 124/66 O2 Sat by Pulse 100 100 100 Oximetry 12/22/16 12/22/16 12/22/16 06:11 06:15 06:21 Temperature Pulse Rate 88 88 88 Respiratory 21 22 14 Rate Blood Pressure 124/66 130/87 130/87 O2 Sat by Pulse 100 100 100 Oximetry 12/22/16 12/22/16 12/22/16 06:25 06:30 06:35 Temperature Pulse Rate 88 87 89 Respiratory 15 14 14 Rate Blood Pressure 130/87 134/85 134/85 O2 Sat by Pulse 100 100 99 Oximetry 12/22/16 12/22/16 12/22/16 06:41 06:45 06:51 Temperature Pulse Rate 89 89 89 Respiratory 14 16 15 Rate Blood Pressure 134/85 123/76 123/76 O2 Sat by Pulse 99 100 100 Oximetry 12/22/16 12/22/16 12/22/16 06:55 07:00 07:05 Temperature Pulse Rate 94 H 93 H 90 Respiratory 16 17 30 H Rate Blood Pressure 123/76 129/82 129/82 O2 Sat by Pulse 100 100 100 Oximetry 12/22/16 12/22/16 12/22/16 07:11 07:15 07:21 Temperature Pulse Rate 90 87 89 Respiratory 29 H 23 14 Rate Blood Pressure 129/82 124/78 124/78 O2 Sat by Pulse 100 100 100 Oximetry 12/22/16 12/22/16 12/22/16 07:25 07:31 07:35 Temperature Pulse Rate 93 H 89 92 H Respiratory 18 12 13 Rate Blood Pressure 124/78 125/86 125/86 O2 Sat by Pulse 100 99 100 Oximetry 12/22/16 12/22/16 12/22/16 07:41 07:45 07:51 Temperature Pulse Rate 91 H 90 92 H Respiratory 14 11 L 13 Rate Blood Pressure 129/82 131/87 131/87 O2 Sat by Pulse 100 100 100 Oximetry 12/22/16 12/22/16 12/22/16 07:55 08:00 08:31 Temperature Pulse Rate 93 H 91 H 81 Respiratory 13 17 16 Rate Blood Pressure 131/87 131/88 130/70 O2 Sat by Pulse 100 100 100 Oximetry 12/22/16 09:01 Temperature Pulse Rate 87 Respiratory 15 Rate Blood Pressure 130/70 O2 Sat by Pulse 99 Oximetry - Reevaluation(s) Reevaluation #1: 12/22/16 08:44 Review the patient's chart reveals that she was recently in the hospital due to similar symptoms. She was found to have chronic DVT in the right leg. She was also found to be lithium toxic. [place] level will be added to her current labs. ED Medical Decision Making - Lab Data Result diagrams: 12/21/16 23:25 12/21/16 23:25 - Medical Decision Making Lab results reviewed and discussed with the patient. No acute abnormalities have been found to explain patient's symptoms. Patient will be treated symptomatically and discharged home to follow up with her primary care physician. - Differential Diagnosis abdominal pain, UTI, lithium toxicity Critical care attestation.: If time is entered above; I have spent that time in minutes in the direct care of this critically ill patient, excluding procedure time. ED Disposition Clinical Impression: Abdominal pain Qualifiers: Abdominal location: lower abdomen, unspecified Qualified Code(s): R10.30 - Lower abdominal pain, unspecified Disposition: DISCHARGED TO HOME OR SELFCARE Is pt being admited?: No Condition: Stable Instructions: Abdominal Pain (ED) Prescriptions: traMADol [Ultram] 50 mg PO Q6HR PRN #20 tablet PRN Reason: Pain Referrals: PRIMARY CARE, [Primary Care Provider] - 3-5 Days Time of Disposition: 10:42
[2016-12-22] MEDS ORDERED: ULTRAM PO ONE (10:40)
[2016-12-22 11:21] VITALS: BP 128/78
== END 2016-12-22 11:22 | disposition home or self-care (01) ==
LOC: ED 22:01
DX: R10.30 Lower abdominal pain, unspecified (principal); I10 Essential (primary) hypertension; I50.9 Heart failure, unspecified; E11.9 Type 2 diabetes mellitus without complications; R56.9 Unspecified convulsions; F31.9 Bipolar disorder, unspecified; F20.9 Schizophrenia, unspecified; Z86.718 Personal history of other venous thrombosis and embolism; Z90.49 Acquired absence of other specified parts of digestive tract; Z90.710 Acquired absence of both cervix and uterus
CPT/HCPCS: 36415; 80053; 80178; 81001; 81025; 83690; 85025; 99284

== ENCOUNTER 2017-03-17 17:55 | Emergency (ER) | payer MEDICARE ==
[2017-03-17 19:13] LABS: Basophils % (Auto) 0.5 % (0.0-1.8); Eosinophils % (Auto) 0.7 % (0.0-4.3); Hematocrit 42.6 % (30.3-42.9); Hemoglobin 13.8 gm/dl (10.1-14.3); Mean Corpuscular HGB Conc 32 % (30-34); Mean Corpuscular Hemoglobin 29 pg (28-32); Mean Corpuscular Volume 89 fl (79-97); Platelet Count 176 K/mm3 (140-440); Red Blood Count 4.76 M/mm3 (3.65-5.03); Red Cell Distribution Width 14.9 % (13.2-15.2)
[2017-03-17 19:20] LABS: Bilirubin,Urine NEG (Negative); Blood,Urine MOD (Negative); Ketones,Urine NEG (Negative); Leukocyte Esterase,Urine NEG (Negative); Mucus,Urine FEW /HPF; Nitrite,Urine NEG (Negative); Protein,Urine <15 mg/dL mg/dL (Negative); Urobilinogen,Urine < 2.0 mg/dL (<2.0)
[2017-03-17 19:29] LABS: Alanine Aminotransferase 10 units/L (7-56); Albumin 4.2 g/dL (3.9-5); Albumin/Globulin Ratio 1.1 %; Alkaline Phosphatase 63 units/L (35-129); Anion Gap 19 mmol/L; BUN/Creatinine Ratio 13.75; Blood Urea Nitrogen 11 mg/dL (7-17); Calcium 9.3 mg/dL (8.4-10.2); Carbon Dioxide 22 mmol/L (22-30); Chloride 99.5 mmol/L (98-107); Glucose 89 mg/dL (65-100); Lipase 20 units/L (13-60); Potassium 3.7 mmol/L (3.6-5.0); Sodium 137 mmol/L (137-145); Total Protein 8.1 g/dL (6.3-8.2)
--- NOTE | 2017-03-17 23:51 | Emergency Department Report ---
HPI - General Chief Complaint: Abdominal Pain Time Seen by Provider: 03/17/17 23:34 - HPI HPI: Room 20 The patient is a 41-year-old female presenting with a chief complaint [place] pain. Patient is currently at the [facility]. Patient states she developed lower abdominal pain for the past 2-3 days that was crampy in nature. Patient denies nausea or vomiting. Patient denies vaginal discharge. Patient admits to subjective fever and chills. When asked originally above leg pain patient states she only has tightness in her thighs during the exam patient also complains of tightness in both lower extremities. The patient gives her pain a score of 30/10 Location: [see above] Duration: 2-3 days Quality: Cramping Severity: 30/10 Modifying factors: [see above] Context: [see above] Mode of transportation: [not driving] ED Past Medical Hx - Past Medical History Previous Medical History?: Yes Hx Hypertension: Yes Hx Congestive Heart Failure: Yes Hx Diabetes: Yes Hx Deep Vein Thrombosis: Yes Hx Seizures: Yes Hx Psychiatric Treatment: Yes (bipolar / SCHIZOAFFECTIVE DISORDER) - Surgical History Past Surgical History?: Yes Hx Cholecystectomy: Yes Additional Surgical History: hysterectomy. cervical fusion - Family History Family history: no significant - Social History Smoking Status: Never Smoker Substance Use Type: None (denies illicit drug use), Prescribed - Medications Home Medications: Home Medications Medication Instructions Recorded Confirmed Last Taken Type Benztropine [Cogentin] 1 mg PO BID 12/03/16 12/03/16 12/03/16 07:00 History 1 MG Multivitamin/Ferrous Sulfate 18 mg PO DAILY 12/03/16 12/03/16 Unknown History [One-Daily Pzhno-Coh-Them Tab] Pediatric Multivit Comb No.76 1 each PO DAILY 12/03/16 12/03/16 Unknown History [Flintstones Complete] Simvastatin [Zocor TAB] 40 mg PO QHS 12/03/16 12/03/16 Unknown History Ziprasidone HCl [Geodon] 80 mg PO QHS 12/03/16 12/03/16 Unknown History fluPHENAZine HCL [fluPHENAZine] 10 mg PO DAILY 12/03/16 12/03/16 12/03/16 07:00 History 10MG [place] Carbonate [Eskalith] 150 mg PO BID #60 capsule 12/04/16 Unknown Rx traMADol [Ultram] 50 mg PO Q6HR PRN #20 tablet 12/22/16 Unknown Rx traMADol [Ultram] 50 mg PO Q6HR PRN #10 tablet 03/18/17 Unknown Rx ED Review of Systems ROS: Stated complaint: ABD PAIN Other details as noted in HPI Comment: All other systems reviewed and negative Constitutional: chills, fever (subjective) Eyes: denies: eye pain, eye discharge, vision change ENT: denies: ear pain, throat pain Respiratory: denies: cough, shortness of breath, wheezing Cardiovascular: denies: chest pain, palpitations Endocrine: no symptoms reported Gastrointestinal: abdominal pain. denies: nausea, vomiting Genitourinary: denies: urgency, dysuria, discharge Musculoskeletal: myalgia. denies: back pain, joint swelling, arthralgia Skin: denies: rash, lesions Neurological: denies: headache, weakness, paresthesias Psychiatric: denies: anxiety, depression Hematological/Lymphatic: denies: easy bleeding, easy bruising Physical Exam - Physical Exam Vital Signs: Vital Signs 03/17/17 03/17/17 18:25 23:22 Temperature 98.8 F 97.6 F Pulse Rate 102 H 83 Respiratory 20 18 Rate Blood Pressure 140/98 139/100 O2 Sat by Pulse 100 100 Oximetry Physical Exam: GENERAL: The patient is well-developed well-nourished female lying on stretcher not appearing to be in acute distress. Patient somewhat hyperverbal HEENT: Normocephalic. Atraumatic. Extraocular motions are intact. Patient has moist mucous membranes. NECK: Supple. Trachea midline CHEST/LUNGS: Clear to auscultation. There is no respiratory distress noted. HEART/CARDIOVASCULAR: Regular. There is no tachycardia. There is no gallop rub or murmur. ABDOMEN: Abdomen is soft, with mild discomfort to palpation in the suprapubic region. There is no rebound or guarding. Patient has normal bowel sounds. There is no abdominal distention. SKIN: There is no rash. There is no edema. There is no diaphoresis. NEURO: The patient is awake, alert, and oriented. The patient is cooperative. The patient has normal speech MUSCULOSKELETAL: There is no tenderness palpation of bilateral calves the patient does complain of them feeling tight. There is no limitation range of motion. ED Course Vital Signs 03/17/17 03/17/17 18:25 23:22 Temperature 98.8 F 97.6 F Pulse Rate 102 H 83 Respiratory 20 18 Rate Blood Pressure 140/98 139/100 O2 Sat by Pulse 100 100 Oximetry ED Medical Decision Making - Lab Data Result diagrams: 03/17/17 18:54 03/17/17 18:54 Laboratory Tests 03/17/17 03/17/17 03/17/17 18:52 18:54 18:54 WBC 8.0 RBC 4.76 Hgb 13.8 Hct 42.6 MCV 89 MCH 29 MCHC 32 RDW 14.9 Plt Count 176 Lymph % (Auto) 24.9 [place] % (Auto) 11.1 H Eos % (Auto) 0.7 Baso % (Auto) 0.5 Lymph # 2.0 [place] # 0.9 H Eos # 0.1 Baso # 0.0 Seg Neutrophils % 62.8 Seg Neutrophils # 5.0 D-Dimer Sodium 137 Potassium 3.7 Chloride 99.5 Carbon Dioxide 22 Anion Gap 19 BUN 11 Creatinine 0.8 Estimated GFR > 60 BUN/Creatinine Ratio 13.75 Glucose 89 Calcium 9.3 Total Bilirubin 0.60 AST 14 ALT 10 Alkaline Phosphatase 63 Total Protein 8.1 Albumin 4.2 Albumin/Globulin Ratio 1.1 Lipase 20 Urine Color Yellow Urine Turbidity Clear Urine pH 5.0 Ur Specific [place] 1.017 Urine Protein <15 mg/dl Urine Glucose (UA) Neg Urine Ketones Neg Urine Blood Mod Urine Nitrite Neg Urine Bilirubin Neg Urine Urobilinogen < 2.0 Ur Leukocyte Esterase Neg Urine WBC (Auto) 1.0 Urine RBC (Auto) 2.0 U Epithel Cells (Auto) 1.0 Urine Mucus Few [place] 03/17/17 03/17/17 23:58 23:58 WBC RBC Hgb Hct MCV MCH MCHC RDW Plt Count Lymph % (Auto) [place] % (Auto) Eos % (Auto) Baso % (Auto) Lymph # [place] # Eos # Baso # Seg Neutrophils % Seg Neutrophils # D-Dimer < 135.00 Sodium Potassium Chloride Carbon Dioxide Anion Gap BUN Creatinine Estimated GFR BUN/Creatinine Ratio Glucose Calcium Total Bilirubin AST ALT Alkaline Phosphatase Total Protein Albumin Albumin/Globulin Ratio Lipase Urine Color Urine Turbidity Urine pH Ur Specific [place] Urine Protein Urine Glucose (UA) Urine Ketones Urine Blood Urine Nitrite Urine Bilirubin Urine Urobilinogen Ur Leukocyte Esterase Urine WBC (Auto) Urine RBC (Auto) U Epithel Cells (Auto) Urine Mucus [place] 0.1 - Radiology Data Radiology results: report reviewed (CT abdomen and pelvis), image reviewed (CT abdomen and pelvis) CT abdomen and pelvis (read by radiologist)- there is no evidence of intestinal or urinary tract obstruction. No ileus or enteritis. The appendix is normal. - Differential Diagnosis UTI, appendicitis, DVTs, myalgia Critical care attestation.: If time is entered above; I have spent that time in minutes in the direct care of this critically ill patient, excluding procedure time. ED Disposition Clinical Impression: Abdominal pain Disposition: DC-01 TO HOME OR SELFCARE Is pt being admited?: No Does the pt Need Aspirin: No Condition: Stable Instructions: Abdominal Pain (ED) Additional Instructions: Return to the emergency department immediately should you develop worsening symptoms, fever, inability to tolerate food or liquid or any other concerns. Prescriptions: traMADol [Ultram] 50 mg PO Q6HR PRN #10 tablet PRN Reason: Pain Referrals: ED [facility] [Other] - 3-5 Days Time of Disposition: 03:18
[2017-03-18] MEDS ORDERED: NACL ONE (00:43)
[2017-03-18] MEDS ORDERED: MORPHINE IV ONE (02:14)
[2017-03-18] MEDS ORDERED: ZOFRAN IV ONE (02:14)
--- NOTE | 2017-03-18 03:11 | Cat Scan Report ---
FINAL REPORT PROCEDURE: CT ABDOMEN PELVIS W CON TECHNIQUE: Computerized axial tomography of the abdomen and pelvis was performed after the IV injection of iodinated nonionic contrast. HISTORY: lower abdominal pain COMPARISON: 03/02/2017 FINDINGS: Visualized lower thorax: No significant abnormality. Liver: Normal size and attenuation. Spleen: Normal size and attenuation. Gallbladder and biliary system: The gallbladder is absent. No dilatation of biliary ductal system. Pancreas: Normal. Adrenals: Normal. Kidneys: Normal. GI tract: No obstruction. No ileus or enteritis. The cecum, appendix and colon are normal. Moderate fecal debris throughout the colon.. Lymph nodes and mesentery: Normal. Vasculature: Normal. Bladder: Normal. Reproductive organs: Normal. Peritoneum: No free fluid. Musculoskeletal structures: No significant abnormality. Other: Small fat containing umbilical hernia.. IMPRESSION: There is no evidence of intestinal or urinary tract obstruction. No ileus or enteritis. The appendix is normal.
[2017-03-18 04:16] VITALS: BP 126/78
== END 2017-03-18 04:10 | disposition home or self-care (01) ==
LOC: ED 17:55
DX: R10.30 Lower abdominal pain, unspecified (principal); I10 Essential (primary) hypertension; I50.9 Heart failure, unspecified; E11.9 Type 2 diabetes mellitus without complications; F31.9 Bipolar disorder, unspecified
CPT/HCPCS: 36415; 74177; 80053; 80178; 81001; 83690; 85025; 85379; 96374; 96375; 99284; J2270; J2405; Q9967

== ENCOUNTER 2017-03-22 18:24 | Emergency (ER) | payer MEDICARE ==
[2017-03-22 19:09] LABS: Basophils % (Auto) 0.5 % (0.0-1.8); Eosinophils % (Auto) 1.9 % (0.0-4.3); Hematocrit 37.7 % (30.3-42.9); Hemoglobin 11.9 gm/dl (10.1-14.3); Mean Corpuscular HGB Conc 32 % (30-34); Mean Corpuscular Hemoglobin 29 pg (28-32); Mean Corpuscular Volume 92 fl (79-97); Platelet Count 160 K/mm3 (140-440); Red Blood Count 4.11 M/mm3 (3.65-5.03); Red Cell Distribution Width 15.8 % (13.2-15.2); White Blood Count 6.7 K/mm3 (4.5-11.0)
[2017-03-22 19:27] LABS: Anion Gap 17 mmol/L; BUN/Creatinine Ratio 18.75; Blood Urea Nitrogen 15 mg/dL (7-17); Calcium 9.2 mg/dL (8.4-10.2); Carbon Dioxide 24 mmol/L (22-30); Chloride 103.3 mmol/L (98-107); Glucose 73 mg/dL (65-100); Potassium 4.1 mmol/L (3.6-5.0); Sodium 140 mmol/L (137-145)
--- NOTE | 2017-03-23 01:45 | Emergency Department Report ---
HPI - General Chief Complaint: Extremity Injury, Lower Time Seen by Provider: 03/23/17 01:29 - HPI HPI: Room 3 The patient is a 41-year-old female presenting with a chief complaint of bilateral lower extremity edema. The patient presents to the emergency department because she reports 3 years she has had bilateral lower extremity edema and tightness. The patient states the tightness increased today so she decided to come to the emergency department. Patient denies suicidal or homicidal ideation. Patient denies auditory or visual hallucinations. Patient was seen by myself and this ED a few days ago for abdominal pain. At that time she had a negative d-dimer Location: Bilateral lower extremities Duration: 3 years, worsening today Quality: Tightness Severity: Moderate Modifying factors: [see above] Context: [see above] Mode of transportation: [not driving] ED Past Medical Hx - Past Medical History Hx Hypertension: Yes Hx Congestive Heart Failure: Yes Hx Diabetes: Yes Hx Deep Vein Thrombosis: Yes Hx Seizures: Yes Hx Psychiatric Treatment: Yes (bipolar / SCHIZOAFFECTIVE DISORDER) - Surgical History Hx Cholecystectomy: Yes Additional Surgical History: hysterectomy. cervical fusion - Family History Family history: no significant - Social History Smoking Status: Never Smoker Substance Use Type: None - Medications Home Medications: Home Medications Medication Instructions Recorded Confirmed Last Taken Type Benztropine [Cogentin] 1 mg PO BID 12/03/16 12/03/16 12/03/16 07:00 History 1 MG Multivitamin/Ferrous Sulfate 18 mg PO DAILY 12/03/16 12/03/16 Unknown History [One-Daily Rybto-Gkh-Gocp Tab] Pediatric Multivit Comb No.76 1 each PO DAILY 12/03/16 12/03/16 Unknown History [Flintstones Complete] Simvastatin [Zocor TAB] 40 mg PO QHS 12/03/16 12/03/16 Unknown History Ziprasidone HCl [Geodon] 80 mg PO QHS 12/03/16 12/03/16 Unknown History fluPHENAZine HCL [fluPHENAZine] 10 mg PO DAILY 12/03/16 12/03/16 12/03/16 07:00 History 10MG [place] Carbonate [Eskalith] 150 mg PO BID #60 capsule 12/04/16 Unknown Rx traMADol [Ultram] 50 mg PO Q6HR PRN #20 tablet 12/22/16 Unknown Rx traMADol [Ultram] 50 mg PO Q6HR PRN #10 tablet 03/18/17 Unknown Rx Furosemide [Lasix] 20 mg PO QDAY #7 tablet 03/23/17 Unknown Rx traMADol [Ultram] 50 mg PO Q6HR PRN #10 tablet 03/23/17 Unknown Rx ED Review of Systems ROS: Stated complaint: BOTH LEG PAIN Other details as noted in HPI Comment: All other systems reviewed and negative Constitutional: denies: chills, fever Eyes: denies: eye pain, eye discharge, vision change ENT: denies: ear pain, throat pain Respiratory: denies: cough, shortness of breath, wheezing Cardiovascular: denies: chest pain, palpitations Endocrine: no symptoms reported Gastrointestinal: denies: abdominal pain, nausea, diarrhea Genitourinary: denies: urgency, dysuria, discharge Musculoskeletal: myalgia. denies: back pain, joint swelling, arthralgia Skin: denies: rash, lesions Neurological: denies: headache, weakness, paresthesias Psychiatric: denies: anxiety, depression, auditory hallucinations, visual hallucinations, homicidal thoughts, suicidal thoughts Hematological/Lymphatic: denies: easy bleeding, easy bruising Physical Exam - Physical Exam Vital Signs: Vital Signs 03/22/17 03/23/17 18:37 00:26 Temperature 98.7 F 98.2 F Pulse Rate 92 H 75 Respiratory 16 14 Rate Blood Pressure 143/92 Blood Pressure 120/70 [Left] O2 Sat by Pulse 99 100 Oximetry Physical Exam: GENERAL: The patient is well-developed well-nourished female lying on stretcher not appearing to be in acute distress. [] HEENT: Normocephalic. Atraumatic. Extraocular motions are intact. Patient has moist mucous membranes. NECK: Supple. Trachea midline CHEST/LUNGS: Clear to auscultation. There is no respiratory distress noted. HEART/CARDIOVASCULAR: Regular. There is no tachycardia. There is no gallop rub or murmur. ABDOMEN: Abdomen is soft, nontender. Patient has normal bowel sounds. There is no abdominal distention. SKIN: There is no rash. There is trace bilateral lower extremity edema. There is no diaphoresis. NEURO: The patient is awake, alert, and oriented. The patient is cooperative. The patient has normal speech MUSCULOSKELETAL: There is no evidence of acute injury. ED Course Vital Signs 03/22/17 03/23/17 18:37 00:26 Temperature 98.7 F 98.2 F Pulse Rate 92 H 75 Respiratory 16 14 Rate Blood Pressure 143/92 Blood Pressure 120/70 [Left] O2 Sat by Pulse 99 100 Oximetry ED Medical Decision Making - Lab Data Result diagrams: 03/22/17 18:57 03/22/17 18:57 Laboratory Tests 03/22/17 03/22/17 03/23/17 18:57 18:57 Unknown WBC 6.7 RBC 4.11 Hgb 11.9 Hct 37.7 MCV 92 MCH 29 MCHC 32 RDW 15.8 H Plt Count 160 Lymph % (Auto) 22.4 [place] % (Auto) 8.9 H Eos % (Auto) 1.9 Baso % (Auto) 0.5 Lymph # 1.5 [place] # 0.6 Eos # 0.1 Baso # 0.0 Seg Neutrophils % 66.3 Seg Neutrophils # 4.4 Sodium 140 Potassium 4.1 Chloride 103.3 Carbon Dioxide 24 Anion Gap 17 BUN 15 Creatinine 0.8 Estimated GFR > 60 BUN/Creatinine Ratio 18.75 Glucose 73 Calcium 9.2 Total Bilirubin 0.20 AST 12 ALT 10 Alkaline Phosphatase 59 Troponin T < 0.010 NT-Pro-B Natriuret Pep 8.69 Total Protein 6.8 Albumin 4.1 Albumin/Globulin Ratio 1.5 [place] 03/23/17 Unknown WBC RBC Hgb Hct MCV MCH MCHC RDW Plt Count Lymph % (Auto) [place] % (Auto) Eos % (Auto) Baso % (Auto) Lymph # [place] # Eos # Baso # Seg Neutrophils % Seg Neutrophils # Sodium Potassium Chloride Carbon Dioxide Anion Gap BUN Creatinine Estimated GFR BUN/Creatinine Ratio Glucose Calcium Total Bilirubin AST ALT Alkaline Phosphatase Troponin T NT-Pro-B Natriuret Pep Total Protein Albumin Albumin/Globulin Ratio [place] 0.2 - EKG Data -: EKG Interpreted by Me EKG shows normal: sinus rhythm Rate: normal - EKG Data When compared to previous EKG there are: no significant change Interpretation: unchanged when compared t (12/03/2016) - Radiology Data Radiology results: image reviewed (chest x-ray) interpreted by me: Chest x-ray-no focal infiltrates, no pneumothorax - Differential Diagnosis CHF, renal failure, hypoalbuminemia, Critical care attestation.: If time is entered above; I have spent that time in minutes in the direct care of this critically ill patient, excluding procedure time. ED Disposition Clinical Impression: Lower leg edema Disposition: - TO HOME OR SELFCARE Is pt being admited?: No Does the pt Need Aspirin: No Condition: Stable Instructions: Leg Edema (ED) Additional Instructions: Return to the emergency department immediately should you develop worsening symptoms, fever, inability to tolerate food or liquid or any other concerns. Prescriptions: Furosemide [Lasix] 20 mg PO QDAY #7 tablet traMADol [Ultram] 50 mg PO Q6HR PRN #10 tablet PRN Reason: Pain Referrals: PRIMARY CARE, [Primary Care Provider] - 3-5 Days Time of Disposition: 02:01
[2017-03-23 01:51] LABS: Alanine Aminotransferase 10 units/L (7-56); Albumin 4.1 g/dL (3.9-5); Albumin/Globulin Ratio 1.5 %; Alkaline Phosphatase 59 units/L (35-129); Total Protein 6.8 g/dL (6.3-8.2)
[2017-03-23 01:58] LABS: Bilirubin,Direct < 0.2 mg/dL (0-0.2)
[2017-03-23 02:08] VITALS: BP 127/63
--- NOTE | 2017-03-23 08:45 | XRay Report ---
ROUTINE CHEST, TWO VIEWS: HISTORY: Shortness of breath. The trachea, heart, mediastinal contour, lung patino and bony thorax are unremarkable. IMPRESSION: Unremarkable chest x-ray. No significant change since 08/09/16.
== END 2017-03-23 02:31 | disposition home or self-care (01) ==
LOC: ED 18:24
DX: R60.9 Edema, unspecified (principal); I11.0 Hypertensive heart disease with heart failure; I50.9 Heart failure, unspecified; E11.9 Type 2 diabetes mellitus without complications; F31.9 Bipolar disorder, unspecified; F20.9 Schizophrenia, unspecified; Z86.718 Personal history of other venous thrombosis and embolism
CPT/HCPCS: 36415; 71020; 80048; 80074; 80178; 83880; 84484; 85025; 93005; 93010; 99284

== ENCOUNTER 2017-05-27 17:07 | Emergency (ER) | payer MEDICARE ==
[2017-05-27] MEDS ORDERED: MOTRIN PO ONE (20:31)
--- NOTE | 2017-05-27 20:39 | Emergency Department Report ---
ED Extremity Problem HPI - General Chief complaint: Extremity Injury, Lower Stated complaint: LEGS SWOLLEN Time Seen by Provider: 05/27/17 20:11 Source: patient Mode of arrival: Ambulatory Limitations: Other - History of Present Illness Initial comments: 41F PMH bipolar, hx of dvt p/w c/o x5 years of b/l knee pain. Presents with complaint of acute on chronic bilateral knee pain worsen right knee the left. Patient is awake alert and oriented 3 not in acute distress. States she has not taken any medicines for the pain. Not currently on any anticoagulants. MD Complaint: extremity pain Onset/Timin -: week(s) Location: right History of Same: Yes -: Yes arthralgia Severity scale (0 -10): 6 Quality: aching Consistency: intermittent Improves with: nothing Worsens with: weight bearing, walking Associated Symptoms: denies other symptoms - Related Data Home Medications Medication Instructions Recorded Confirmed Last Taken Benztropine [Cogentin] 1 mg PO BID 12/03/16 04/06/17 04/06/17 08:00 Simvastatin [Zocor TAB] 40 mg PO QHS 12/03/16 04/06/17 04/05/17 Ergocalciferol [Vitamin D2] 1 cap PO QWEEK 04/06/17 04/06/17 Unknown Pantoprazole [Protonix] 40 mg PO QDAY 04/06/17 04/06/17 04/06/17 08:00 fluPHENAZine HCL [Prolixin] 5 mg PO HS 04/06/17 04/06/17 04/05/17 Previous Rx's Medication Instructions Recorded Last Taken Type [place] Carbonate [Eskalith] 150 mg PO BID #60 capsule 12/04/16 04/06/17 08:00 Rx traMADol [Ultram] 50 mg PO Q6HR PRN #10 tablet 03/23/17 04/06/17 08:00 Rx HYDROcodone/APAP 5-325 [[place] 1 each PO Q4HR PRN #20 tablet 04/09/17 Unknown Rx 5/325] Levofloxacin [Levaquin TAB] 500 mg PO QDAY #3 tablet 04/09/17 Unknown Rx metroNIDAZOLE [Flagyl] 500 mg PO Q8HR #9 tablet 04/09/17 Unknown Rx metroNIDAZOLE [Flagyl] 500 mg PO Q8HR 9 Days 07/21/17 Unknown Rx Naproxen [Naprosyn TAB] 500 mg PO BID PRN #25 tablet 05/27/17 Unknown Rx Allergies Allergy/AdvReac Type Severity Reaction Status Date / Time acetaminophen [From Midol] Allergy Unknown Verified 12/03/16 08:52 haloperidol [From Haldol] Allergy Unknown Verified 12/03/16 08:52 haloperidol lactate Allergy Unknown Verified 12/03/16 08:52 [From Haldol] hydroxyzine HCl Allergy Unknown Verified 12/03/16 08:52 [From Vistaril] hydroxyzine pamoate Allergy Unknown Verified 12/03/16 08:52 [From Vistaril] iodine Allergy Headache Verified 12/03/16 08:52 pamabrom [From Midol] Allergy Unknown Verified 12/03/16 08:52 Sulfa (Sulfonamide Allergy Unknown Verified 12/03/16 08:52 Antibiotics) zolpidem tartrate Allergy Unknown Verified 12/03/16 08:52 [From Ambien] latex AdvReac Itching Verified 12/03/16 08:52 lorazepam [From Ativan] AdvReac Hives Verified 12/03/16 08:52 potassium AdvReac Swelling Verified 12/03/16 08:52 risperidone [From Risperdal] AdvReac Unknown Verified 12/03/16 08:52 trazodone AdvReac Swelling Verified 12/21/16 23:06 ED Review of Systems ROS: Stated complaint: LEGS SWOLLEN Other details as noted in HPI Constitutional: denies: chills, fever Eyes: denies: eye pain, eye discharge, vision change ENT: denies: ear pain, throat pain Respiratory: denies: cough, shortness of breath, wheezing Cardiovascular: denies: chest pain, palpitations Endocrine: no symptoms reported Gastrointestinal: denies: abdominal pain, nausea, diarrhea Genitourinary: denies: urgency, dysuria, discharge Musculoskeletal: as per HPI. denies: back pain, joint swelling, arthralgia Skin: denies: rash, lesions Neurological: denies: headache, weakness, paresthesias Psychiatric: denies: anxiety, depression Hematological/Lymphatic: denies: easy bleeding, easy bruising ED Past Medical Hx - Past Medical History Previous Medical History?: Yes Hx Hypertension: Yes Hx Heart Attack/AMI: No Hx Congestive Heart Failure: Yes Hx Diabetes: Yes Hx Deep Vein Thrombosis: Yes Hx Pulmonary Embolism: No Hx Seizures: Yes Hx Psychiatric Treatment: Yes (bipolar / SCHIZOAFFECTIVE DISORDER) Hx Asthma: No Hx COPD: No Hx Tuberculosis: No Hx HIV: No - Surgical History Past Surgical History?: Yes Hx Coronary Stent: No Hx Pacemaker: No Hx Internal Defibrillator: No Hx Cholecystectomy: Yes Additional Surgical History: hysterectomy. cervical fusion - Social History Smoking Status: Never Smoker Substance Use Type: None - Medications Home Medications: Home Medications Medication Instructions Recorded Confirmed Last Taken Type Benztropine [Cogentin] 1 mg PO BID 12/03/16 04/06/17 04/06/17 08:00 History Simvastatin [Zocor TAB] 40 mg PO QHS 12/03/16 04/06/17 04/05/17 History [place] Carbonate [Eskalith] 150 mg PO BID #60 capsule 12/04/16 04/06/17 08:00 Rx traMADol [Ultram] 50 mg PO Q6HR PRN #10 tablet 03/23/17 04/06/17 04/06/17 08:00 Rx Ergocalciferol [Vitamin D2] 1 cap PO QWEEK 04/06/17 04/06/17 Unknown History Pantoprazole [Protonix] 40 mg PO QDAY 04/06/17 04/06/17 04/06/17 08:00 History fluPHENAZine HCL [Prolixin] 5 mg PO HS 04/06/17 04/06/17 04/05/17 History HYDROcodone/APAP 5-325 [[place] 1 each PO Q4HR PRN #20 tablet 04/09/17 Unknown Rx 5/325] Levofloxacin [Levaquin TAB] 500 mg PO QDAY #3 tablet 04/09/17 Unknown Rx metroNIDAZOLE [Flagyl] 500 mg PO Q8HR #9 tablet 04/09/17 Unknown Rx metroNIDAZOLE [Flagyl] 500 mg PO Q8HR 9 Days 04/09/17 Unknown Rx Naproxen [Naprosyn TAB] 500 mg PO BID PRN #25 tablet 05/27/17 Unknown Rx ED Physical Exam - General Limitations: Other General appearance: alert, in no apparent distress - Head Head exam: Present: atraumatic, normocephalic - Eye Eye exam: Present: normal appearance, PERRL, EOMI - ENT ENT exam: Present: mucous membranes moist - Neck Neck exam: Present: normal inspection, full ROM - Respiratory Respiratory exam: Present: normal lung sounds bilaterally. Absent: respiratory distress - Cardiovascular Cardiovascular Exam: Present: regular rate, normal rhythm. Absent: systolic murmur, diastolic murmur, rubs, gallop - GI/Abdominal GI/Abdominal exam: Present: soft, normal bowel sounds - Extremities Exam Extremities exam: Present: normal inspection - Expanded Lower Extremity Exam Right Upper Leg exam: Present: normal inspection, full ROM Knee exam: Present: normal inspection, full ROM (range of motion flexion and extension right knee intact), tenderness (patient has some reproducible tenderness with palpation of anterior right knee no visible erythema cellulitis , no abscess) Lower Leg exam: Present: normal inspection, full ROM Ankle exam: Present: normal inspection, full ROM Foot/Toe exam: Present: normal inspection, full ROM Neuro vascular tendon exam: Present: no vascular compromise (distal dorsalis pedis and posterior tibial pulses intact both lower extremities) Gait: Positive: antalgic (slightly antalgic gait secondary to knee pain) 1 - Reproducible pain on palpation here - Back Exam Back exam: Present: normal inspection - Neurological Exam Neurological exam: Present: alert, oriented X3, CN II-XII intact, abnormal gait (antalgic gait secondary to pain in right knee) - Psychiatric Psychiatric exam: Present: normal affect, normal mood - Skin Skin exam: Present: warm, dry, intact, normal color. Absent: rash ED Course Vital Signs 05/27/17 05/27/17 17:37 22:27 Temperature 98.1 F 98.5 F Pulse Rate 70 72 Respiratory 16 20 Rate Blood Pressure 138/81 Blood Pressure 134/96 [Right] O2 Sat by Pulse 100 100 Oximetry ED Medical Decision Making - Medical Decision Making A/P: Bilateral knee pain 1-x-ray show some spurring or patella 2-patient has no calf pain or significant edema of extremities however as patient does have history of DVT was sent for outpatient duplex. Patient does not have any pitting edema in lower extremities, Homans sign negative 3-naproxen when necessary, follow-up with primary care Critical care attestation.: If time is entered above; I have spent that time in minutes in the direct care of this critically ill patient, excluding procedure time. ED Disposition Clinical Impression: Knee pain, right Qualifiers: Chronicity: acute Qualified Code(s): M25.561 - Pain in right knee Disposition: - TO HOME OR SELFCARE Is pt being admited?: No Does the pt Need Aspirin: No Condition: Stable Instructions: Knee Pain (ED), Arthralgia (ED), RICE Therapy (ED) Additional Instructions: Patient to return to [facility] for vascular ultrasound tomorrow morning 05/28/2017 for lower extremity venous Doppler to rule out DVT. Patient given order form Prescriptions: Naproxen [Naprosyn TAB] 500 mg PO BID PRN #25 tablet PRN Reason: Pain Referrals: [facility] [place] [Outside] - 3-5 Days Forms: Work/School Release Form(ED) Time of Disposition: 21:57
--- NOTE | 2017-05-27 21:51 | XRay Report ---
FINAL REPORT EXAM: XR KNEE BILAT 1-2V HISTORY: b/l knee pain TECHNIQUE: 2 views of both right and left knees. PRIORS: None. FINDINGS: Slight spurring off the anterosuperior patellar poles, right greater than left. Joint spaces maintained. No apparent fracture or dislocation. Soft tissues grossly unremarkable. IMPRESSION: 1. No acute osseous abnormality.
[2017-05-27 22:28] VITALS: BP 134/96
== END 2017-05-27 22:28 | disposition home or self-care (01) ==
LOC: ED 17:07
DX: M25.561 Pain in right knee (principal); I10 Essential (primary) hypertension; I50.9 Heart failure, unspecified; F31.9 Bipolar disorder, unspecified; F25.9 Schizoaffective disorder, unspecified; Z88.8 Allergy status to other drugs, medicaments and biological substances; Z88.2 Allergy status to sulfonamides

== ENCOUNTER 2017-05-28 09:41 | Emergency (ER) | payer MEDICARE ==
--- NOTE | 2017-05-28 15:18 | Vascular Lab Report ---
LOWER EXTREMITY VENOUS DUPLEX: REASON FOR EXAM: Pain of the lower extremities. COMMENTS ON THE RIGHT: All veins visualized are freely compressible without evidence of internal echogenicity. Flow is spontaneous and phasic throughout. COMMENTS ON THE LEFT: Nonocclusive hyperechoic chronic deep venous thrombus noted in the left proximal to mid superficial femoral vein. The remaining veins visualized are freely compressible without evidence of internal echogenicity. Spontaneous and phasic flow is diminished proximally. IMPRESSION: No evidence of acute deep venous thrombus. Chronic left superficial femoral vein deep venous thrombus.
--- NOTE | 2017-05-28 15:29 | Emergency Department Report ---
HPI - General Chief Complaint: Extremity Problem,Nontraumatic Time Seen by Provider: 05/28/17 15:02 - HPI HPI: This is a 41-year-old female presents to the emergency department with complaint of leg swelling and history of recurrent and/or chronic DVTs. The patient was here last night and saw the mid-level provider secondary to leg swelling and then was sent to return this morning for an outpatient Doppler ultrasound. We were called and told that the patient had a positive chronic left lower extremity DVT. The patient says that she has been dealing with blood clots in the past 3 years. She has been on Coumadin in the past but this was stopped about 2 months ago and the patient says that it was actually discontinued by her primary care physician's at [facility], Dr. Wong and/or Dr. Hudson. She admits to some swelling and some pain in the bilateral legs but denies any skin color change or any lesions. No recent travel or sick contacts at home. She said that she did have an appendectomy about 2 months ago. ED Past Medical Hx - Past Medical History Previous Medical History?: Yes Hx Hypertension: Yes Hx Heart Attack/AMI: No Hx Congestive Heart Failure: Yes Hx Diabetes: Yes Hx Deep Vein Thrombosis: Yes Hx Pulmonary Embolism: No Hx Seizures: Yes Hx Psychiatric Treatment: Yes (bipolar / SCHIZOAFFECTIVE DISORDER) Hx Asthma: No Hx COPD: No Hx Tuberculosis: No Hx HIV: No - Surgical History Past Surgical History?: Yes Hx Coronary Stent: No Hx Pacemaker: No Hx Internal Defibrillator: No Hx Cholecystectomy: Yes Additional Surgical History: hysterectomy. cervical fusion - Social History Smoking Status: Never Smoker Substance Use Type: None - Medications Home Medications: Home Medications Medication Instructions Recorded Confirmed Last Taken Type Benztropine [Cogentin] 1 mg PO BID 12/03/16 04/06/17 04/06/17 08:00 History Simvastatin [Zocor TAB] 40 mg PO QHS 12/03/16 04/06/17 04/05/17 History [place] Carbonate [Eskalith] 150 mg PO BID #60 capsule 12/04/16 04/06/17 08:00 Rx traMADol [Ultram] 50 mg PO Q6HR PRN #10 tablet 03/23/17 04/06/17 04/06/17 08:00 Rx Ergocalciferol [Vitamin D2] 1 cap PO QWEEK 04/06/17 04/06/17 Unknown History Pantoprazole [Protonix] 40 mg PO QDAY 04/06/17 04/06/17 04/06/17 08:00 History fluPHENAZine HCL [Prolixin] 5 mg PO HS 04/06/17 04/06/17 04/05/17 History HYDROcodone/APAP 5-325 [[place] 1 each PO Q4HR PRN #20 tablet 04/09/17 Unknown Rx 5/325] Levofloxacin [Levaquin TAB] 500 mg PO QDAY #3 tablet 04/09/17 Unknown Rx metroNIDAZOLE [Flagyl] 500 mg PO Q8HR #9 tablet 04/09/17 Unknown Rx metroNIDAZOLE [Flagyl] 500 mg PO Q8HR 9 Days 04/09/17 Unknown Rx Naproxen [Naprosyn TAB] 500 mg PO BID PRN #25 tablet 05/27/17 Unknown Rx ED Review of Systems ROS: Stated complaint: Other details as noted in HPI Comment: All other systems reviewed and negative Constitutional: denies: chills, fever Eyes: denies: eye pain, eye discharge, vision change ENT: denies: ear pain, throat pain Respiratory: denies: cough, shortness of breath, wheezing Cardiovascular: edema. denies: chest pain, palpitations Gastrointestinal: denies: abdominal pain, nausea, diarrhea Genitourinary: denies: urgency, dysuria, discharge Musculoskeletal: myalgia. denies: back pain Skin: denies: rash, change in color Neurological: denies: headache, weakness, paresthesias Physical Exam - Physical Exam Vital Signs: Vital Signs 05/28/17 14:34 Temperature 98.5 F Pulse Rate 80 Respiratory 18 Rate Blood Pressure 137/89 O2 Sat by Pulse 100 Oximetry Physical Exam: GENERAL: The patient is well-developed well-nourished. HENT: Normocephalic. Atraumatic. Patient has moist mucous membranes. EYES: Extraocular motions are intact. Pupils equal reactive to light bilaterally. NECK: Supple. Trachea is midline. CHEST/LUNGS: Clear to auscultation. There is no respiratory distress noted. HEART/CARDIOVASCULAR: Regular. There is no tachycardia. There is no gallop rub or murmur. ABDOMEN: Abdomen is soft, nontender. Patient has normal bowel sounds. There is no abdominal distention. SKIN: Skin is warm and dry. No appreciable significant edema. NEURO: The patient is awake, alert, and oriented. The patient is cooperative. The patient has no focal neurologic deficits. The patient has normal speech and gait. MUSCULOSKELETAL: There is no tenderness or deformity. There is no limitation range of motion. There is no evidence of acute injury. ED Course Vital Signs 05/28/17 14:34 Temperature 98.5 F Pulse Rate 80 Respiratory 18 Rate Blood Pressure 137/89 O2 Sat by Pulse 100 Oximetry ED Medical Decision Making - Lab Data Result diagrams: 05/28/17 15:37 - Radiology Data Radiology results: report reviewed Bilateral lower extremity venous Doppler shows a chronic left superficial femoral vein thrombosis. - Medical Decision Making 41-year-old female presents to the emergency department with a venous Doppler that shows a left lower extremity venous Doppler. Earlier today when we were called by the radiology department, we did not know that it was a chronic DVT. Patient was here in November of this year and was found to have a chronic DVT in the same location at that time. The patient does have some psychiatric history and is AAO 3 but is a poor story about some of her history and as to the reason why she does not require any anticoagulation. I do not have any other ultrasounds showing different DVTs in the past but potentially the patient does have more sensitive history that I have knowledge of. However with chronic DVT and no acute DVT for the past 6 months, it is possible the patient does not require any further anticoagulation. There are more risks of placing this patient on anticoagulation without any acute DVT found so instead the patient will be encouraged to follow up with her PCP and was also given a referral for vascular surgery for follow-up. She will return to the ER if any worsening of her symptoms or any acute distress. Critical Care Time: No Critical care attestation.: If time is entered above; I have spent that time in minutes in the direct care of this critically ill patient, excluding procedure time. ED Disposition Clinical Impression: Chronic deep vein thrombosis (DVT) of lower extremity Qualifiers: Affected thrombotic vein of extremity: femoral Laterality: left Qualified Code( s): I82.512 - Chronic embolism and thrombosis of left femoral vein Disposition: - TO HOME OR SELFCARE Is pt being admited?: No Condition: Stable Instructions: Deep Venous Thrombosis (ED) Additional Instructions: Please follow up with her primary care doctor in the next few days regarding your left leg chronic DVT and whether or not to do any anticoagulation. I have given a referral for a vascular physician as well in case he would like to follow up. Referrals: PRIMARY CAREMD [Primary Care Provider] - 3-5 Days [facility] [Outside] - 3-5 Days KATEY SERRANO MD [Staff Physician] - 3-5 Days Time of Disposition: 17:08
[2017-05-28 16:15] LABS: Basophils % (Auto) 0.4 % (0.0-1.8); Hematocrit 41.8 % (30.3-42.9); Hemoglobin 13.8 gm/dl (10.1-14.3); Mean Corpuscular HGB Conc 33 % (30-34); Mean Corpuscular Hemoglobin 29 pg (28-32); Mean Corpuscular Volume 88 fl (79-97); Platelet Count 182 K/mm3 (140-440); Red Blood Count 4.72 M/mm3 (3.65-5.03); Red Cell Distribution Width 15.4 % (13.2-15.2); White Blood Count 6.3 K/mm3 (4.5-11.0)
[2017-05-28 16:25] LABS: INR 1.02 (0.87-1.13)
[2017-05-28 16:26] VITALS: BP 109/65
[2017-05-28 16:26] LABS: Partial Thromboplastin Time 30.1 Sec. (24.2-36.6)
== END 2017-05-28 17:48 | disposition home or self-care (01) ==
LOC: VAS 09:41 → ED 09:41 → EDSTATUS 12:43 → ED 17:48
DX: I82.512 Chronic embolism and thrombosis of left femoral vein (principal); I10 Essential (primary) hypertension; I50.9 Heart failure, unspecified; E11.9 Type 2 diabetes mellitus without complications
CPT/HCPCS: 36415; 85025; 85610; 85730; 93970

== ENCOUNTER 2017-05-31 13:52 | Emergency (ER) | payer MEDICARE ==
[2017-05-31 18:36] LABS: Basophils % (Auto) 0.4 % (0.0-1.8); Hematocrit 42.3 % (30.3-42.9); Hemoglobin 13.4 gm/dl (10.1-14.3); Mean Corpuscular HGB Conc 32 % (30-34); Mean Corpuscular Hemoglobin 28 pg (28-32); Mean Corpuscular Volume 90 fl (79-97); Platelet Count 204 K/mm3 (140-440); Red Blood Count 4.72 M/mm3 (3.65-5.03); Red Cell Distribution Width 15.2 % (13.2-15.2); White Blood Count 6.5 K/mm3 (4.5-11.0)
--- NOTE | 2017-05-31 21:03 | Emergency Department Report ---
ED General Adult HPI - General Stated complaint: CHEST PAIN Time Seen by Provider: 05/31/17 20:58 - History of Present Illness Initial comments: Impressions a 41-year-old female past medical history bipolar who presents with chest pain. Has been going on for the last 4 days. She states her chest pain is a 4 time and some burning type pain doesn't radiate nothing makes it better or worse. While she was going on she noticed that she was slightly short of breath. Patient currently states that she is smiling having any chest pain has not short of breath at the moment. Patient denies having any nausea or vomiting. - Related Data Home Medications Medication Instructions Recorded Confirmed Last Taken Benztropine [Cogentin] 1 mg PO BID 12/03/16 04/06/17 04/06/17 08:00 Simvastatin [Zocor TAB] 40 mg PO QHS 12/03/16 04/06/17 04/05/17 Ergocalciferol [Vitamin D2] 1 cap PO QWEEK 04/06/17 04/06/17 Unknown Pantoprazole [Protonix] 40 mg PO QDAY 04/06/17 04/06/17 04/06/17 08:00 fluPHENAZine HCL [Prolixin] 5 mg PO HS 04/06/17 04/06/17 04/05/17 Previous Rx's Medication Instructions Recorded Last Taken Type [place] Carbonate [Eskalith] 150 mg PO BID #60 capsule 12/04/16 04/06/17 08:00 Rx traMADol [Ultram] 50 mg PO Q6HR PRN #10 tablet 03/23/17 04/06/17 08:00 Rx HYDROcodone/APAP 5-325 [[place] 1 each PO Q4HR PRN #20 tablet 04/09/17 Unknown Rx 5/325] Levofloxacin [Levaquin TAB] 500 mg PO QDAY #3 tablet 04/09/17 Unknown Rx metroNIDAZOLE [Flagyl] 500 mg PO Q8HR #9 tablet 04/09/17 Unknown Rx metroNIDAZOLE [Flagyl] 500 mg PO Q8HR 9 Days 04/09/17 Unknown Rx Naproxen [Naprosyn TAB] 500 mg PO BID PRN #25 tablet 05/27/17 Unknown Rx Allergies Allergy/AdvReac Type Severity Reaction Status Date / Time acetaminophen [From Midol] Allergy Unknown Verified 12/03/16 08:52 haloperidol [From Haldol] Allergy Unknown Verified 12/03/16 08:52 haloperidol lactate Allergy Unknown Verified 12/03/16 08:52 [From Haldol] hydroxyzine HCl Allergy Unknown Verified 12/03/16 08:52 [From Vistaril] hydroxyzine pamoate Allergy Unknown Verified 12/03/16 08:52 [From Vistaril] iodine Allergy Headache Verified 12/03/16 08:52 pamabrom [From Midol] Allergy Unknown Verified 12/03/16 08:52 Sulfa (Sulfonamide Allergy Unknown Verified 12/03/16 08:52 Antibiotics) zolpidem tartrate Allergy Unknown Verified 12/03/16 08:52 [From Ambien] latex AdvReac Itching Verified 12/03/16 08:52 lorazepam [From Ativan] AdvReac Hives Verified 12/03/16 08:52 potassium AdvReac Swelling Verified 12/03/16 08:52 risperidone [From Risperdal] AdvReac Unknown Verified 12/03/16 08:52 trazodone AdvReac Swelling Verified 12/21/16 23:06 ED Review of Systems ROS: Stated complaint: CHEST PAIN Other details as noted in HPI Constitutional: denies: chills, fever Eyes: denies: eye pain, eye discharge, vision change ENT: denies: ear pain, throat pain Respiratory: denies: cough, shortness of breath, wheezing Cardiovascular: chest pain. denies: palpitations Endocrine: no symptoms reported Gastrointestinal: denies: abdominal pain, nausea, diarrhea Genitourinary: denies: urgency, dysuria, discharge Musculoskeletal: denies: back pain, joint swelling, arthralgia Skin: denies: rash, lesions Neurological: denies: headache, weakness, paresthesias Psychiatric: denies: anxiety, depression Hematological/Lymphatic: denies: easy bleeding, easy bruising ED Past Medical Hx - Past Medical History Hx Hypertension: Yes Hx Heart Attack/AMI: No Hx Congestive Heart Failure: Yes Hx Diabetes: Yes Hx Deep Vein Thrombosis: Yes Hx Pulmonary Embolism: No Hx Seizures: Yes Hx Psychiatric Treatment: Yes (bipolar / SCHIZOAFFECTIVE DISORDER) Hx Asthma: No Hx COPD: No Hx Tuberculosis: No Hx HIV: No - Surgical History Hx Coronary Stent: No Hx Pacemaker: No Hx Internal Defibrillator: No Hx Cholecystectomy: Yes Additional Surgical History: hysterectomy. cervical fusion - Social History Smoking Status: Never Smoker Substance Use Type: None - Medications Home Medications: Home Medications Medication Instructions Recorded Confirmed Last Taken Type Benztropine [Cogentin] 1 mg PO BID 12/03/16 04/06/17 04/06/17 08:00 History Simvastatin [Zocor TAB] 40 mg PO QHS 12/03/16 04/06/17 04/05/17 History [place] Carbonate [Eskalith] 150 mg PO BID #60 capsule 12/04/16 04/06/17 08:00 Rx traMADol [Ultram] 50 mg PO Q6HR PRN #10 tablet 03/23/17 04/06/17 04/06/17 08:00 Rx Ergocalciferol [Vitamin D2] 1 cap PO QWEEK 04/06/17 04/06/17 Unknown History Pantoprazole [Protonix] 40 mg PO QDAY 04/06/17 04/06/17 04/06/17 08:00 History fluPHENAZine HCL [Prolixin] 5 mg PO HS 04/06/17 04/06/17 04/05/17 History HYDROcodone/APAP 5-325 [[place] 1 each PO Q4HR PRN #20 tablet 04/09/17 Unknown Rx 5/325] Levofloxacin [Levaquin TAB] 500 mg PO QDAY #3 tablet 04/09/17 Unknown Rx metroNIDAZOLE [Flagyl] 500 mg PO Q8HR #9 tablet 04/09/17 Unknown Rx metroNIDAZOLE [Flagyl] 500 mg PO Q8HR 9 Days 04/09/17 Unknown Rx Naproxen [Naprosyn TAB] 500 mg PO BID PRN #25 tablet 05/27/17 Unknown Rx ED Physical Exam - General General appearance: alert, in no apparent distress - Head Head exam: Present: atraumatic, normocephalic - Eye Eye exam: Present: normal appearance - ENT ENT exam: Present: mucous membranes moist - Neck Neck exam: Present: normal inspection - Respiratory Respiratory exam: Present: normal lung sounds bilaterally. Absent: respiratory distress - Cardiovascular Cardiovascular Exam: Present: regular rate, normal rhythm. Absent: systolic murmur, diastolic murmur, rubs, gallop - GI/Abdominal GI/Abdominal exam: Present: soft, normal bowel sounds - Extremities Exam Extremities exam: Present: normal inspection - Back Exam Back exam: Present: normal inspection - Neurological Exam Neurological exam: Present: alert, oriented X3 - Psychiatric Psychiatric exam: Present: normal affect, normal mood - Skin Skin exam: Present: warm, dry, intact, normal color. Absent: rash ED Course - Reevaluation(s) Reevaluation #1: 05/31/17 21:04 Patient is feeling better I will some pressure to follow up with her primary care provider. ED Medical Decision Making - Lab Data Result diagrams: 05/31/17 18:28 Lab Results 05/31/17 05/31/17 Range/Units 18:28 18:28 WBC 6.5 (4.5-11.0) K/mm3 RBC 4.72 (3.65-5.03) M/mm3 Hgb 13.4 (10.1-14.3) gm/dl Hct 42.3 (30.3-42.9) % MCV 90 (79-97) fl MCH 28 (28-32) pg MCHC 32 (30-34) % RDW 15.2 (13.2-15.2) % Plt Count 204 (140-440) K/mm3 Lymph % (Auto) 27.8 (13.4-35.0) % [place] % (Auto) 8.5 H (0.0-7.3) % Eos % (Auto) 2.0 (0.0-4.3) % Baso % (Auto) 0.4 (0.0-1.8) % Lymph # 1.8 (1.2-5.4) K/mm3 [place] # 0.6 (0.0-0.8) K/mm3 Eos # 0.1 (0.0-0.4) K/mm3 Baso # 0.0 (0.0-0.1) K/mm3 Seg Neutrophils % 61.3 (40.0-70.0) % Seg Neutrophils # 4.0 (1.8-7.7) K/mm3 Troponin T < 0.010 (0.00-0.029) ng/mL NT-Pro-B Natriuret Pep 8.01 (0-450) pg/mL - EKG Data -: EKG Interpreted by Tx - EKG Data 05/31/17 21:05 EKG shows normal sinus rhythm normal axis and T-wave inversions or ST segment elevation. - Radiology Data Radiology results: image reviewed Chest x-ray: Shows no acute cardiopulmonary disease. - Medical Decision Making Chief medical diagnosis: Pneumonia Differential medical diagnosis: GERD, gastroenteritis I will get CBC, CMP, troponin and a chest x-ray patient's findings are most consistent with GERD also and the patient home to follow-up with her PCP. Patient agrees with plan and additional verbal discharge options were given. Critical care attestation.: If time is entered above; I have spent that time in minutes in the direct care of this critically ill patient, excluding procedure time. ED Disposition Clinical Impression: GERD (gastroesophageal reflux disease) Qualifiers: Esophagitis presence: without esophagitis Qualified Code(s): K21.9 - Gastro- esophageal reflux disease without esophagitis Disposition: DC- TO HOME OR SELFCARE Is pt being admited?: No Does the pt Need Aspirin: No Condition: Stable Instructions: Gastroesophageal Reflux Disease (ED)
[2017-05-31 22:17] VITALS: BP 116/75
--- NOTE | 2017-06-01 08:05 | XRay Report ---
ROUTINE CHEST, TWO VIEWS: HISTORY: Shortness of breath. The trachea, heart, mediastinal contour, lung patino and bony thorax are unremarkable. IMPRESSION: No acute cardiopulmonary process. No significant change since 03/22/17.
[2017-06-01 13:03] LABS: Bilirubin,Urine Negative (Negative)
[2017-06-01 13:04] LABS: Blood,Urine Negative (Negative); Ketones,Urine Negative (Negative); Leukocyte Esterase,Urine Negative (Negative); Nitrite,Urine Negative (Negative); Protein,Urine <15 mg/dL mg/dL (Negative); Urobilinogen,Urine < 2.0 mg/dL (<2.0); WBC,Urine < 1.0 /HPF (0.0-6.0)
== END 2017-05-31 22:14 | disposition home or self-care (01) ==
LOC: ED 13:52
DX: K21.9 Gastro-esophageal reflux disease without esophagitis (principal); I10 Essential (primary) hypertension; I50.9 Heart failure, unspecified; E11.9 Type 2 diabetes mellitus without complications; I82.629 Acute embolism and thrombosis of deep veins of unspecified upper extremity; F20.9 Schizophrenia, unspecified; Z88.8 Allergy status to other drugs, medicaments and biological substances; Z88.2 Allergy status to sulfonamides
CPT/HCPCS: 36415; 71020; 81001; 83880; 84484; 85025

== ENCOUNTER 2017-06-15 16:20 | Emergency (ER) | payer MEDICARE ==
[2017-06-15 16:40] VITALS: BP 117/72
--- NOTE | 2017-06-15 16:54 | Emergency Department Report ---
Stated Complaint: CERVICS CHECKED Time Seen by Provider: 06/15/17 16:39 - HPI History of Present Illness: PT c/o pelvic pain. she states it feels like something needs to come out of her cervix. - ROS Review of Systems: - vaginal bleeding - Exam Vital Signs: Vital Signs 06/15/17 16:34 Temperature 98 F Pulse Rate 84 Respiratory 18 Rate Blood Pressure 117/72 O2 Sat by Pulse 100 Oximetry Physical Exam: pt is alert obese abd MSE screening note: Focused history and physical exam performed. Due to findings the following was ordered: labs ED Disposition for MSE Condition: Stable
[2017-06-15 17:05] LABS: Basophils % (Auto) 0.3 % (0.0-1.8); Eosinophils % (Auto) 1.5 % (0.0-4.3); Hematocrit 40.7 % (30.3-42.9); Hemoglobin 13.2 gm/dl (10.1-14.3); Mean Corpuscular HGB Conc 33 % (30-34); Mean Corpuscular Hemoglobin 29 pg (28-32); Mean Corpuscular Volume 88 fl (79-97); Platelet Count 207 K/mm3 (140-440); Red Blood Count 4.61 M/mm3 (3.65-5.03); Red Cell Distribution Width 15.2 % (13.2-15.2); White Blood Count 7.7 K/mm3 (4.5-11.0)
[2017-06-15 17:18] LABS: Alanine Aminotransferase 8 units/L (7-56); Albumin 4.1 g/dL (3.9-5); Albumin/Globulin Ratio 1.1 %; Alkaline Phosphatase 73 units/L (35-129); Anion Gap 18 mmol/L; BUN/Creatinine Ratio 21.66; Blood Urea Nitrogen 13 mg/dL (7-17); Calcium 10.1 mg/dL (8.4-10.2); Carbon Dioxide 24 mmol/L (22-30); Chloride 99.8 mmol/L (98-107); Glucose 95 mg/dL (65-100); Potassium 3.7 mmol/L (3.6-5.0); Sodium 138 mmol/L (137-145); Total Protein 7.9 g/dL (6.3-8.2)
[2017-06-15 21:35] LABS: Bacteria,Urine 2+ /HPF (Negative); Bilirubin,Urine NEG (Negative); Blood,Urine NEG (Negative); Ketones,Urine NEG (Negative); Leukocyte Esterase,Urine NEG (Negative); Mucus,Urine FEW /HPF; Nitrite,Urine NEG (Negative); Protein,Urine <15 mg/dL mg/dL (Negative); Urobilinogen,Urine < 2.0 mg/dL (<2.0)
[2017-06-15] MEDS ORDERED: ROCEPHIN IM ONE (23:53)
[2017-06-15] MEDS ORDERED: ZITHROMAX PO ONE (23:53)
[2017-06-15] MEDS ORDERED: XYLOCAINE 1% MPF 5 mL INFILTRATI ONE (23:53)
--- NOTE | 2017-06-16 01:15 | Emergency Department Report ---
ED Female HPI - General Chief complaint: Urogenital-Female Stated complaint: CERVICS CHECKED Time Seen by Provider: 06/15/17 16:39 Source: patient Mode of arrival: Ambulatory Limitations: No Limitations - History of Present Illness Initial comments: 41 year old female presents to ED with pelvic pressure and vag discharge x1 day which she now states has resolved. patient states she feels like "something is inside of her vagina". patient is stable, neurologically intact and in no acute distress. patient denies vaginal bleeding. patient states she is sexually active and would like to be treated for STD. MD Complaint: pelvic pain (pressure) -: Sudden Radiation: non-radiating Severity: mild Quality: cramping, aching Consistency: now resolved Improves with: none Worsens with: none Are you Now?: No Associated Symptoms: vaginal discharge. denies: vaginal bleeding, abdominal pain, nausea/vomiting, fever/chills, headaches, loss of appetite, dysuria, hematuria, shortness of breath, syncope, weakness - Related Data Sexually active: Yes Home Medications Medication Instructions Recorded Confirmed Last Taken Benztropine [Cogentin] 1 mg PO BID 12/03/16 04/06/17 04/06/17 08:00 Simvastatin [Zocor TAB] 40 mg PO QHS 12/03/16 04/06/17 04/05/17 Ergocalciferol [Vitamin D2] 1 cap PO QWEEK 04/06/17 04/06/17 Unknown Pantoprazole [Protonix] 40 mg PO QDAY 04/06/17 04/06/17 04/06/17 08:00 fluPHENAZine HCL [Prolixin] 5 mg PO HS 04/06/17 04/06/17 04/05/17 Previous Rx's Medication Instructions Recorded Last Taken Type [place] Carbonate [Eskalith] 150 mg PO BID #60 capsule 12/04/16 04/06/17 08:00 Rx traMADol [Ultram] 50 mg PO Q6HR PRN #10 tablet 03/23/17 04/06/17 08:00 Rx HYDROcodone/APAP 5-325 [[place] 1 each PO Q4HR PRN #20 tablet 04/09/17 Unknown Rx 5/325] Levofloxacin [Levaquin TAB] 500 mg PO QDAY #3 tablet 04/09/17 Unknown Rx metroNIDAZOLE [Flagyl] 500 mg PO Q8HR #9 tablet 04/09/17 Unknown Rx metroNIDAZOLE [Flagyl] 500 mg PO Q8HR 9 Days 04/09/17 Unknown Rx Naproxen [Naprosyn TAB] 500 mg PO BID PRN #25 tablet 05/27/17 Unknown Rx Allergies Allergy/AdvReac Type Severity Reaction Status Date / Time acetaminophen [From Midol] Allergy Unknown Verified 12/03/16 08:52 haloperidol [From Haldol] Allergy Unknown Verified 12/03/16 08:52 haloperidol lactate Allergy Unknown Verified 12/03/16 08:52 [From Haldol] hydroxyzine HCl Allergy Unknown Verified 12/03/16 08:52 [From Vistaril] hydroxyzine pamoate Allergy Unknown Verified 12/03/16 08:52 [From Vistaril] iodine Allergy Headache Verified 12/03/16 08:52 pamabrom [From Midol] Allergy Unknown Verified 12/03/16 08:52 Sulfa (Sulfonamide Allergy Unknown Verified 12/03/16 08:52 Antibiotics) zolpidem tartrate Allergy Unknown Verified 12/03/16 08:52 [From Ambien] latex AdvReac Itching Verified 12/03/16 08:52 lorazepam [From Ativan] AdvReac Hives Verified 12/03/16 08:52 potassium AdvReac Swelling Verified 12/03/16 08:52 risperidone [From Risperdal] AdvReac Unknown Verified 12/03/16 08:52 trazodone AdvReac Swelling Verified 12/21/16 23:06 ED Review of Systems ROS: Stated complaint: CERVICS CHECKED Other details as noted in HPI Constitutional: denies: chills, fever Eyes: denies: eye pain, eye discharge, vision change ENT: denies: ear pain, throat pain Respiratory: denies: cough, shortness of breath, wheezing Cardiovascular: denies: chest pain, palpitations Endocrine: no symptoms reported Gastrointestinal: denies: abdominal pain, nausea, vomiting, diarrhea Genitourinary: discharge, other (pelvic pressure). denies: urgency, dysuria, hematuria Musculoskeletal: denies: back pain, joint swelling, arthralgia Skin: denies: rash, lesions Neurological: denies: headache, weakness, numbness, paresthesias, confusion, abnormal gait, vertigo Psychiatric: denies: anxiety, depression Hematological/Lymphatic: denies: easy bleeding, easy bruising ED Past Medical Hx - Past Medical History Hx Hypertension: Yes Hx Heart Attack/AMI: No Hx Congestive Heart Failure: Yes Hx Diabetes: Yes Hx Deep Vein Thrombosis: Yes Hx Pulmonary Embolism: No Hx Seizures: Yes Hx Psychiatric Treatment: Yes (bipolar / SCHIZOAFFECTIVE DISORDER) Hx Asthma: No Hx COPD: No Hx Tuberculosis: No Hx HIV: No - Surgical History Hx Coronary Stent: No Hx Pacemaker: No Hx Internal Defibrillator: No Hx Cholecystectomy: Yes Hx Appendectomy: Yes Additional Surgical History: hysterectomy. cervical fusion - Social History Smoking Status: Never Smoker Substance Use Type: None - Medications Home Medications: Home Medications Medication Instructions Recorded Confirmed Last Taken Type Benztropine [Cogentin] 1 mg PO BID 12/03/16 04/06/17 04/06/17 08:00 History Simvastatin [Zocor TAB] 40 mg PO QHS 12/03/16 04/06/17 04/05/17 History [place] Carbonate [Eskalith] 150 mg PO BID #60 capsule 12/04/16 04/06/17 08:00 Rx traMADol [Ultram] 50 mg PO Q6HR PRN #10 tablet 03/23/17 04/06/17 04/06/17 08:00 Rx Ergocalciferol [Vitamin D2] 1 cap PO QWEEK 04/06/17 04/06/17 Unknown History Pantoprazole [Protonix] 40 mg PO QDAY 04/06/17 04/06/17 04/06/17 08:00 History fluPHENAZine HCL [Prolixin] 5 mg PO HS 04/06/17 04/06/17 04/05/17 History HYDROcodone/APAP 5-325 [[place] 1 each PO Q4HR PRN #20 tablet 04/09/17 Unknown Rx 5/325] Levofloxacin [Levaquin TAB] 500 mg PO QDAY #3 tablet 04/09/17 Unknown Rx metroNIDAZOLE [Flagyl] 500 mg PO Q8HR #9 tablet 04/09/17 Unknown Rx metroNIDAZOLE [Flagyl] 500 mg PO Q8HR 9 Days 04/09/17 Unknown Rx Naproxen [Naprosyn TAB] 500 mg PO BID PRN #25 tablet 05/27/17 Unknown Rx ED Physical Exam - General Limitations: No Limitations General appearance: alert, in no apparent distress - Head Head exam: Present: atraumatic, normocephalic - Eye Eye exam: Present: normal appearance - ENT ENT exam: Present: mucous membranes moist - Neck Neck exam: Present: normal inspection, full ROM - Respiratory Respiratory exam: Present: normal lung sounds bilaterally. Absent: respiratory distress, wheezes - Cardiovascular Cardiovascular Exam: Present: regular rate, normal rhythm. Absent: systolic murmur, diastolic murmur, rubs, gallop - GI/Abdominal GI/Abdominal exam: Present: soft, normal bowel sounds. Absent: distended, tenderness, guarding, rebound - External exam: Present: normal external exam Speculum exam: Present: normal speculum exam Bi-manual exam: Present: normal bi-manual exam. Absent: cervical motion tendernes, adnexal tenderness - Extremities Exam Extremities exam: Present: normal inspection, full ROM - Back Exam Back exam: Present: normal inspection, full ROM - Neurological Exam Neurological exam: Present: alert, oriented X3, normal gait - Psychiatric Psychiatric exam: Present: normal affect, normal mood - Skin Skin exam: Present: warm, dry, intact, normal color. Absent: rash ED Course Vital Signs 06/15/17 16:34 Temperature 98 F Pulse Rate 84 Respiratory 18 Rate Blood Pressure 117/72 O2 Sat by Pulse 100 Oximetry ED Medical Decision Making - Lab Data Result diagrams: 06/15/17 16:42 06/15/17 16:42 Labs 06/15/17 06/15/17 06/15/17 16:42 16:42 16:42 WBC 7.7 RBC 4.61 Hgb 13.2 Hct 40.7 MCV 88 MCH 29 MCHC 33 RDW 15.2 Plt Count 207 Lymph % (Auto) 25.1 [place] % (Auto) 9.5 H Eos % (Auto) 1.5 Baso % (Auto) 0.3 Lymph # 1.9 [place] # 0.7 Eos # 0.1 Baso # 0.0 Seg Neutrophils % 63.6 Seg Neutrophils # 4.9 Sodium 138 Potassium 3.7 Chloride 99.8 Carbon Dioxide 24 Anion Gap 18 BUN 13 Creatinine 0.6 L Estimated GFR > 60 BUN/Creatinine Ratio 21.66 Glucose 95 Calcium 10.1 Total Bilirubin 0.30 AST 11 ALT 8 Alkaline Phosphatase 73 Total Protein 7.9 Albumin 4.1 Albumin/Globulin Ratio 1.1 HCG, Qual Negative Urine Color Urine Turbidity Urine pH Ur Specific [place] Urine Protein Urine Glucose (UA) Urine Ketones Urine Blood Urine Nitrite Urine Bilirubin Urine Urobilinogen Ur Leukocyte Esterase Urine WBC (Auto) Urine RBC (Auto) U Epithel Cells (Auto) Urine Bacteria (Auto) Urine Mucus 06/15/17 20:44 WBC RBC Hgb Hct MCV MCH MCHC RDW Plt Count Lymph % (Auto) [place] % (Auto) Eos % (Auto) Baso % (Auto) Lymph # [place] # Eos # Baso # Seg Neutrophils % Seg Neutrophils # Sodium Potassium Chloride Carbon Dioxide Anion Gap BUN Creatinine Estimated GFR BUN/Creatinine Ratio Glucose Calcium Total Bilirubin AST ALT Alkaline Phosphatase Total Protein Albumin Albumin/Globulin Ratio HCG, Qual Urine Color Yellow Urine Turbidity Clear Urine pH 6.0 Ur Specific [place] 1.024 Urine Protein <15 mg/dl Urine Glucose (UA) Neg Urine Ketones Neg Urine Blood Neg Urine Nitrite Neg Urine Bilirubin Neg Urine Urobilinogen < 2.0 Ur Leukocyte Esterase Neg Urine WBC (Auto) 1.0 Urine RBC (Auto) 2.0 U Epithel Cells (Auto) 17.0 H Urine Bacteria (Auto) 2+ Urine Mucus Few NO clue cells, trich, or BV, or yeast seen on wet prep. - Medical Decision Making 41 year old female presents to ED with now resolved pelvic pressure. patient has normal pelvic exam and no sign of UTI in urine. patient has been treated for GC during ED visit as she has requested. patient is stable, neurologically intact and in no acute distress. patient has neg preg test during ED visit today. Critical care attestation.: If time is entered above; I have spent that time in minutes in the direct care of this critically ill patient, excluding procedure time. ED Disposition Clinical Impression: STD exposure Disposition: DC-01 TO HOME OR SELFCARE Is pt being admited?: No Does the pt Need Aspirin: No Condition: Stable Instructions: Safe Sex (ED) Referrals: PRIMARY CARE, [Primary Care Provider] - 2-3 Days
== END 2017-06-16 00:52 | disposition home or self-care (01) ==
LOC: ED 16:20
DX: N89.8 Other specified noninflammatory disorders of vagina (principal); Z20.2 Contact with and (suspected) exposure to infections with a predominantly sexual mode of transmission; I10 Essential (primary) hypertension; R53.1 Weakness; I50.9 Heart failure, unspecified; I82.409 Acute embolism and thrombosis of unspecified deep veins of unspecified lower extremity; F31.9 Bipolar disorder, unspecified; F20.9 Schizophrenia, unspecified; Z90.710 Acquired absence of both cervix and uterus; Z88.8 Allergy status to other drugs, medicaments and biological substances
CPT/HCPCS: 36415; 80053; 81001; 84703; 85025; 87210; 87591; 96372; 99284; J0696

== ENCOUNTER 2017-07-06 17:37 | Emergency (ER) | payer MEDICARE ==
[2017-07-06 19:42] LABS: Bacteria,Urine 1+ /HPF (Negative); Bilirubin,Urine NEG (Negative); Blood,Urine NEG (Negative); Ketones,Urine NEG (Negative); Leukocyte Esterase,Urine NEG (Negative); Mucus,Urine FEW /HPF; Nitrite,Urine NEG (Negative); Protein,Urine <15 mg/dL mg/dL (Negative); Urobilinogen,Urine < 2.0 mg/dL (<2.0)
[2017-07-06 19:45] LABS: Basophils % (Auto) 0.7 % (0.0-1.8); Eosinophils % (Auto) 1.4 % (0.0-4.3); Hematocrit 41.8 % (30.3-42.9); Hemoglobin 13.7 gm/dl (10.1-14.3); Mean Corpuscular HGB Conc 33 % (30-34); Mean Corpuscular Hemoglobin 29 pg (28-32); Mean Corpuscular Volume 88 fl (79-97); Platelet Count 244 K/mm3 (140-440); Red Blood Count 4.75 M/mm3 (3.65-5.03); Red Cell Distribution Width 15.7 % (13.2-15.2); White Blood Count 8.4 K/mm3 (4.5-11.0)
[2017-07-06 20:06] LABS: Alanine Aminotransferase 10 units/L (7-56); Albumin/Globulin Ratio 1.1 %; Alkaline Phosphatase 70 units/L (35-129); Anion Gap 14 mmol/L; BUN/Creatinine Ratio 27; Blood Urea Nitrogen 19 mg/dL (7-17); Calcium 10.4 mg/dL (8.4-10.2); Carbon Dioxide 28 mmol/L (22-30); Chloride 100.1 mmol/L (98-107); Glucose 90 mg/dL (65-100); Lipase 29 units/L (13-60); Potassium 3.6 mmol/L (3.6-5.0); Sodium 138 mmol/L (137-145); Total Protein 7.6 g/dL (6.3-8.2)
[2017-07-07] MEDS ORDERED: NACL ONE (04:37)
--- NOTE | 2017-07-07 05:31 | Cat Scan Report ---
FINAL REPORT EXAM: CT ABDOMEN PELVIS WO CON HISTORY: diffuse abdominal pain TECHNIQUE: Routine axial imaging was obtained of the abdomen pelvis without oral or IV contrast. Comparison is made to the study of 04/06/2017. FINDINGS: The lung bases are clear. Pleural fluid is not seen. The gallbladder has been removed. The liver, pancreas, spleen, and adrenal glands appear normal. The kidneys show no evidence of stones or hydronephrosis. The bowel loops are normal in caliber and course. The appendix has been removed since the previous study. There is no evidence of free fluid or adenopathy. In the pelvis the uterus is absent. The bladder appears normal. There are no adnexal masses or fluid collections. The skeletal structures appear well maintained. IMPRESSION: Cholecystectomy. No acute process in the abdomen and pelvis. Appendectomy. Hysterectomy.
--- NOTE | 2017-07-07 07:09 | Emergency Department Report ---
ED Abdominal Pain HPI - General Chief Complaint: Abdominal Pain Stated Complaint: STOMACH PAIN Time Seen by Provider: 07/07/17 07:03 Source: patient Mode of arrival: Ambulatory Limitations: No Limitations - History of Present Illness Initial Comments: When I counted this patient, she was sleeping. She awoke and did not complain of pain. She stated that she had right flank pain with somewhat radiated around but currently did not involve her stomach. She states that she did some lifting a few days ago and relates this to the pain. She denies any urinary or bowel change or septum. She has no radiating pain. She has no motor or sensory complaints. She has been moving her bowels fine. The patient is status post an appendectomy. It looks like cultures of the appendix were essentially negative. I don't know about the pathology report since I can't access that on this computer as the word program is not working. In any case she had an uncomplicated lap appendectomy within the last year. She has a history of bipolar disorder with previous visits for abdominal pain. MD Complaint: abdominal pain, flank pain -: Gradual, days(s) Location: RUQ, R flank Radiation: RUQ Migration to: no migration Severity scale (0 -10): 3 Quality: aching Consistency: intermittent Improves With: nothing Worsens With: movement Context: other (states precipitated by lifting) Associated Symptoms: denies other symptoms - Related Data Home Medications Medication Instructions Recorded Confirmed Last Taken Benztropine [Cogentin] 1 mg PO BID 12/03/16 04/06/17 04/06/17 08:00 Simvastatin [Zocor TAB] 40 mg PO QHS 12/03/16 04/06/17 04/05/17 Ergocalciferol [Vitamin D2] 1 cap PO QWEEK 04/06/17 04/06/17 Unknown Pantoprazole [Protonix] 40 mg PO QDAY 04/06/17 04/06/17 04/06/17 08:00 fluPHENAZine HCL [Prolixin] 5 mg PO HS 04/06/17 04/06/17 04/05/17 Previous Rx's Medication Instructions Recorded Last Taken Type [place] Carbonate [Eskalith] 150 mg PO BID #60 capsule 12/04/16 04/06/17 08:00 Rx traMADol [Ultram] 50 mg PO Q6HR PRN #10 tablet 03/23/17 04/06/17 08:00 Rx HYDROcodone/APAP 5-325 [[place] 1 each PO Q4HR PRN #20 tablet 04/09/17 Unknown Rx 5/325] Levofloxacin [Levaquin TAB] 500 mg PO QDAY #3 tablet 04/09/17 Unknown Rx metroNIDAZOLE [Flagyl] 500 mg PO Q8HR #9 tablet 04/09/17 Unknown Rx metroNIDAZOLE [Flagyl] 500 mg PO Q8HR 9 Days 04/09/17 Unknown Rx Naproxen [Naprosyn TAB] 500 mg PO BID PRN #25 tablet 05/27/17 Unknown Rx traMADol [Ultram] 50 mg PO Q6HR PRN #10 tablet 07/07/17 Unknown Rx Allergies Allergy/AdvReac Type Severity Reaction Status Date / Time acetaminophen [From Midol] Allergy Unknown Verified 12/03/16 08:52 haloperidol [From Haldol] Allergy Unknown Verified 12/03/16 08:52 haloperidol lactate Allergy Unknown Verified 12/03/16 08:52 [From Haldol] hydroxyzine HCl Allergy Unknown Verified 12/03/16 08:52 [From Vistaril] hydroxyzine pamoate Allergy Unknown Verified 12/03/16 08:52 [From Vistaril] iodine Allergy Headache Verified 12/03/16 08:52 pamabrom [From Midol] Allergy Unknown Verified 12/03/16 08:52 Sulfa (Sulfonamide Allergy Unknown Verified 12/03/16 08:52 Antibiotics) zolpidem tartrate Allergy Unknown Verified 12/03/16 08:52 [From Ambien] latex AdvReac Itching Verified 12/03/16 08:52 lorazepam [From Ativan] AdvReac Hives Verified 12/03/16 08:52 potassium AdvReac Swelling Verified 12/03/16 08:52 risperidone [From Risperdal] AdvReac Unknown Verified 12/03/16 08:52 trazodone AdvReac Swelling Verified 12/21/16 23:06 ED Review of Systems ROS: Stated complaint: STOMACH PAIN Other details as noted in HPI Constitutional: denies: chills, fever Eyes: denies: eye pain, eye discharge, vision change ENT: denies: ear pain, throat pain Respiratory: denies: cough, shortness of breath, wheezing Cardiovascular: denies: chest pain, palpitations Endocrine: no symptoms reported Gastrointestinal: as per HPI, abdominal pain. denies: nausea, diarrhea Genitourinary: denies: urgency, dysuria, discharge Musculoskeletal: as per HPI, back pain. denies: joint swelling, arthralgia Skin: denies: rash, lesions Neurological: denies: headache, weakness, paresthesias Psychiatric: denies: anxiety, depression Hematological/Lymphatic: denies: easy bleeding, easy bruising ED Past Medical Hx - Past Medical History Hx Hypertension: Yes Hx Heart Attack/AMI: No Hx Congestive Heart Failure: Yes Hx Diabetes: Yes Hx Deep Vein Thrombosis: Yes Hx Pulmonary Embolism: No Hx Seizures: Yes Hx Psychiatric Treatment: Yes (bipolar / SCHIZOAFFECTIVE DISORDER) Hx Asthma: No Hx COPD: No Hx Tuberculosis: No Hx HIV: No Additional medical history: high cholesterol - Surgical History Hx Coronary Stent: No Hx Pacemaker: No Hx Internal Defibrillator: No Hx Cholecystectomy: Yes Hx Appendectomy: Yes Additional Surgical History: hysterectomy. cervical fusion - Social History Smoking Status: Never Smoker Substance Use Type: None - Medications Home Medications: Home Medications Medication Instructions Recorded Confirmed Last Taken Type Benztropine [Cogentin] 1 mg PO BID 12/03/16 04/06/17 04/06/17 08:00 History Simvastatin [Zocor TAB] 40 mg PO QHS 12/03/16 04/06/17 04/05/17 History [place] Carbonate [Eskalith] 150 mg PO BID #60 capsule 12/04/16 04/06/17 08:00 Rx traMADol [Ultram] 50 mg PO Q6HR PRN #10 tablet 03/23/17 04/06/17 04/06/17 08:00 Rx Ergocalciferol [Vitamin D2] 1 cap PO QWEEK 04/06/17 04/06/17 Unknown History Pantoprazole [Protonix] 40 mg PO QDAY 04/06/17 04/06/17 04/06/17 08:00 History fluPHENAZine HCL [Prolixin] 5 mg PO HS 04/06/17 04/06/17 04/05/17 History HYDROcodone/APAP 5-325 [[place] 1 each PO Q4HR PRN #20 tablet 04/09/17 Unknown Rx 5/325] Levofloxacin [Levaquin TAB] 500 mg PO QDAY #3 tablet 04/09/17 Unknown Rx metroNIDAZOLE [Flagyl] 500 mg PO Q8HR #9 tablet 04/09/17 Unknown Rx metroNIDAZOLE [Flagyl] 500 mg PO Q8HR 9 Days 04/09/17 Unknown Rx Naproxen [Naprosyn TAB] 500 mg PO BID PRN #25 tablet 05/27/17 Unknown Rx traMADol [Ultram] 50 mg PO Q6HR PRN #10 tablet 07/07/17 Unknown Rx ED Physical Exam - General Limitations: No Limitations General appearance: alert, in no apparent distress - Head Head exam: Present: atraumatic, normocephalic - Eye Eye exam: Present: normal appearance, PERRL, EOMI - ENT ENT exam: Present: mucous membranes moist - Neck Neck exam: Present: normal inspection - Respiratory Respiratory exam: Present: normal lung sounds bilaterally. Absent: respiratory distress - Cardiovascular Cardiovascular Exam: Present: regular rate, normal rhythm. Absent: systolic murmur, diastolic murmur, rubs, gallop - GI/Abdominal GI/Abdominal exam: Present: soft, normal bowel sounds. Absent: distended, tenderness, guarding, rebound, rigid - Extremities Exam Extremities exam: Present: normal inspection, full ROM, normal capillary refill. Absent: calf tenderness - Back Exam Back exam: Present: normal inspection, tenderness (mild right latissimus dorsi discomfort to palpation reproduces the patient's symptoms). Absent: CVA tenderness (R), CVA tenderness (L), muscle spasm, vertebral tenderness - Neurological Exam Neurological exam: Present: alert, oriented X3, CN II-XII intact. Absent: motor sensory deficit - Psychiatric Psychiatric exam: Present: normal affect, normal mood - Skin Skin exam: Present: warm, dry, intact, normal color. Absent: rash ED Course Vital Signs 07/06/17 07/06/17 07/07/17 18:47 18:55 02:16 Temperature 98.7 F Pulse Rate 71 74 Respiratory 18 Rate Blood Pressure 119/80 119/80 113/69 Blood Pressure [Left] O2 Sat by Pulse 100 100 99 Oximetry 07/07/17 07/07/17 07/07/17 02:18 02:30 02:46 Temperature 97.9 F Pulse Rate 81 Respiratory 16 Rate Blood Pressure 113/69 113/69 Blood Pressure 113/61 [Left] O2 Sat by Pulse 99 100 100 Oximetry 07/07/17 07/07/17 07/07/17 03:00 03:16 03:30 Temperature Pulse Rate Respiratory Rate Blood Pressure 113/69 113/69 113/69 Blood Pressure [Left] O2 Sat by Pulse 99 100 100 Oximetry 07/07/17 07/07/17 07/07/17 03:46 03:57 04:00 Temperature Pulse Rate 78 Respiratory 16 Rate Blood Pressure 113/69 98/79 Blood Pressure 98/69 [Left] O2 Sat by Pulse 100 98 97 Oximetry 07/07/17 07/07/17 07/07/17 04:16 04:30 04:46 Temperature Pulse Rate Respiratory Rate Blood Pressure 98/79 98/79 98/79 Blood Pressure [Left] O2 Sat by Pulse 97 98 96 Oximetry 07/07/17 07/07/17 07/07/17 05:00 06:06 06:08 Temperature Pulse Rate 77 Respiratory 16 Rate Blood Pressure 98/79 98/79 Blood Pressure [Left] O2 Sat by Pulse 84 99 Oximetry ED Medical Decision Making - Lab Data Result diagrams: 07/06/17 19:03 07/06/17 19:03 Laboratory Results - last 24 hr 07/06/17 07/06/17 07/06/17 19:03 19:03 19:04 WBC 8.4 RBC 4.75 Hgb 13.7 Hct 41.8 MCV 88 MCH 29 MCHC 33 RDW 15.7 H Plt Count 244 Lymph % (Auto) 27.6 [place] % (Auto) 9.0 H Eos % (Auto) 1.4 Baso % (Auto) 0.7 Lymph # 2.3 [place] # 0.8 Eos # 0.1 Baso # 0.1 Seg Neutrophils % 61.3 Seg Neutrophils # 5.1 Potassium 3.6 Chloride 100.1 Carbon Dioxide 28 Anion Gap 14 BUN 19 H Creatinine 0.7 Estimated GFR > 60 BUN/Creatinine Ratio 27 Glucose 90 Calcium 10.4 H Total Bilirubin 0.30 AST 13 ALT 10 Alkaline Phosphatase 70 Total Protein 7.6 Albumin 4.0 Albumin/Globulin Ratio 1.1 Lipase 29 Urine Color Yellow Urine Turbidity Clear Urine pH 6.0 Ur Specific [place] 1.026 Urine Protein <15 mg/dl Urine Glucose (UA) Neg Urine Ketones Neg Urine Blood Neg Urine Nitrite Neg Urine Bilirubin Neg Urine Urobilinogen < 2.0 Ur Leukocyte Esterase Neg Urine WBC (Auto) 1.0 Urine RBC (Auto) 1.0 U Epithel Cells (Auto) 1.0 Urine Bacteria (Auto) 1+ Urine Mucus Few NA 138 - Radiology Data Radiology results: report reviewed CT NAF Critical care attestation.: If time is entered above; I have spent that time in minutes in the direct care of this critically ill patient, excluding procedure time. ED Disposition Clinical Impression: Musculoskeletal back pain Abdominal pain Qualifiers: Abdominal location: right upper quadrant Qualified Code(s): R10.11 - Right upper quadrant pain Disposition: - TO HOME OR SELFCARE Is pt being admited?: No Does the pt Need Aspirin: No Condition: Stable Instructions: Abdominal Pain (ED), Low Back Strain (ED) Additional Instructions: Primary care physician. Return any acute change or problem. Prescriptions: traMADol [Ultram] 50 mg PO Q6HR PRN #10 tablet PRN Reason: Pain Referrals: PRIMARY CARE, [Primary Care Provider] - 3-5 Days Time of Disposition: 08:07
[2017-07-07 08:58] VITALS: BP 105/69
== END 2017-07-07 08:58 | disposition home or self-care (01) ==
LOC: ED 17:37
DX: R10.11 Right upper quadrant pain (principal); M54.9 Dorsalgia, unspecified; E11.9 Type 2 diabetes mellitus without complications; I82.629 Acute embolism and thrombosis of deep veins of unspecified upper extremity; R56.9 Unspecified convulsions; E78.00 Pure hypercholesterolemia, unspecified; I50.9 Heart failure, unspecified; I10 Essential (primary) hypertension; Z88.8 Allergy status to other drugs, medicaments and biological substances
CPT/HCPCS: 36415; 74176; 80053; 81001; 83690; 85025

== ENCOUNTER 2017-08-17 16:53 | Emergency (ER) | payer MEDICARE ==
--- NOTE | 2017-08-17 17:15 | Emergency Department Report ---
Chief Complaint: Vaginal Bleeding Stated Complaint: VAGINAL BLEEDING - HPI History of Present Illness: This is a 41-year-old female nontoxic, well nourished in appearance, no acute signs of distress presents to the ED with c/o of blood clots during urinating and bowel movement. Patient denies any vaginal bleeding, chest pain, shortness of breath, headache, stiff neck, dizziness, fever or chills. Denies any abdominal pain. - Exam Vital Signs: Vital Signs 08/17/17 16:59 Temperature 98.3 F Pulse Rate 97 H Respiratory 20 Rate Blood Pressure 159/93 O2 Sat by Pulse 100 Oximetry Physical Exam: GENERAL: The patient is a well-developed, well-nourished female in no apparent distress. Patient is alert and acting appropriately for age. Alert and oriented 3, no apparent distress, normal gait, atraumatic. ABDOMEN: Soft, nontender, and nondistended. Positive bowel sounds. No hepatosplenomegaly was noted. No guarding or rebound tenderness, negative epigastric bruit. Negative psoas sign, negative bhardwaj sign, negative McBurneys sign MSE screening note: Focused history and physical exam performed. Due to findings the following was ordered: 1- This initial assessment/diagnostic orders/clinical plan/ treatment(s) is/are subject to change based on pt's health status, clinical progression and re- assessment by fellow clinical providers in the ED. Further treatment and workup at subsequent clinical provers discretion. Patient/guardians urged not to elope from ED as their condition may be serious if not clinically assessed and managed. 2-CBC, CMP, UA, lipase ED Disposition for MSE Condition: Stable
[2017-08-17 18:27] LABS: Basophils % (Auto) 1.1 % (0.0-1.8); Eosinophils % (Auto) 1.6 % (0.0-4.3); Hematocrit 43.4 % (30.3-42.9); Hemoglobin 14.2 gm/dl (10.1-14.3); Mean Corpuscular HGB Conc 33 % (30-34); Mean Corpuscular Hemoglobin 29 pg (28-32); Mean Corpuscular Volume 90 fl (79-97); Platelet Count 220 K/mm3 (140-440); Red Blood Count 4.85 M/mm3 (3.65-5.03); Red Cell Distribution Width 15.1 % (13.2-15.2); White Blood Count 9.2 K/mm3 (4.5-11.0)
[2017-08-17 18:46] LABS: Alanine Aminotransferase 9 units/L (7-56); Albumin 4.4 g/dL (3.9-5); Albumin/Globulin Ratio 1.3 %; Alkaline Phosphatase 80 units/L (35-129); Anion Gap 18 mmol/L; BUN/Creatinine Ratio 18; Blood Urea Nitrogen 11 mg/dL (7-17); Calcium 10.1 mg/dL (8.4-10.2); Carbon Dioxide 26 mmol/L (22-30); Chloride 98.8 mmol/L (98-107); Glucose 96 mg/dL (65-100); Lipase 25 units/L (13-60); Sodium 139 mmol/L (137-145); Total Protein 7.7 g/dL (6.3-8.2)
[2017-08-18 02:37] LABS: Bacteria,Urine 1+ /HPF (Negative); Bilirubin,Urine NEG (Negative); Ketones,Urine NEG (Negative); Nitrite,Urine NEG (Negative); Urobilinogen,Urine < 2.0 mg/dL (<2.0)
[2017-08-18 02:38] LABS: Blood,Urine LG (Negative); Leukocyte Esterase,Urine SM (Negative); Mucus,Urine FEW /HPF
--- NOTE | 2017-08-18 03:37 | Emergency Department Report ---
ED General Adult HPI - General Chief complaint: Vaginal Bleeding Stated complaint: VAGINAL BLEEDING Time Seen by Provider: 08/18/17 01:48 Source: patient, RN notes reviewed, old records reviewed Mode of arrival: Ambulatory Limitations: No Limitations - History of Present Illness Initial comments: This is a 41-year-old female whom I have evaluated in the past. Past medical history includes psychiatric disease, chronic DVT, no pulmonary embolus, appendectomy, hysterectomy, cholecystectomy. Patient presents to the ER with a complaint of intermittent vaginal bleeding. She reports intermittent clots. States this has been going on for a few weeks. He does not have exacerbating or relieving factors. She is not defecating blood that she is aware of, but she is not certain. No headache, neck pain, chest pain shortness of breath, irritative or obstructive urinary symptoms. The bleeding is intermittent, and does not have exacerbating or relieving factors, but is associated with urination. -: Gradual Consistency: intermittent Improves with: none Worsens with: none Associated Symptoms: denies other symptoms - Related Data Home Medications Medication Instructions Recorded Confirmed Last Taken Benztropine [Cogentin] 1 mg PO BID 12/03/16 04/06/17 04/06/17 08:00 Simvastatin [Zocor TAB] 40 mg PO QHS 12/03/16 04/06/17 04/05/17 Ergocalciferol [Vitamin D2] 1 cap PO QWEEK 04/06/17 04/06/17 Unknown Pantoprazole [Protonix] 40 mg PO QDAY 04/06/17 04/06/17 04/06/17 08:00 fluPHENAZine HCL [Prolixin] 5 mg PO HS 04/06/17 04/06/17 04/05/17 Previous Rx's Medication Instructions Recorded Last Taken Type [place] Carbonate [Eskalith] 150 mg PO BID #60 capsule 12/04/16 04/06/17 08:00 Rx traMADol [Ultram] 50 mg PO Q6HR PRN #10 tablet 03/23/17 04/06/17 08:00 Rx HYDROcodone/APAP 5-325 [[place] 1 each PO Q4HR PRN #20 tablet 04/09/17 Unknown Rx 5/325] Levofloxacin [Levaquin TAB] 500 mg PO QDAY #3 tablet 04/09/17 Unknown Rx metroNIDAZOLE [Flagyl] 500 mg PO Q8HR #9 tablet 04/09/17 Unknown Rx metroNIDAZOLE [Flagyl] 500 mg PO Q8HR 9 Days tablet 04/09/17 Unknown Rx Naproxen [Naprosyn TAB] 500 mg PO BID PRN #25 tablet 05/27/17 Unknown Rx traMADol [Ultram] 50 mg PO Q6HR PRN #10 tablet 07/07/17 Unknown Rx Allergies Allergy/AdvReac Type Severity Reaction Status Date / Time acetaminophen [From Midol] Allergy Unknown Verified 08/17/17 16:59 haloperidol [From Haldol] Allergy Unknown Verified 08/17/17 16:59 haloperidol lactate Allergy Unknown Verified 08/17/17 16:59 [From Haldol] hydroxyzine HCl Allergy Unknown Verified 08/17/17 16:59 [From Vistaril] hydroxyzine pamoate Allergy Unknown Verified 08/17/17 16:59 [From Vistaril] iodine Allergy Headache Verified 08/17/17 16:59 pamabrom [From Midol] Allergy Unknown Verified 08/17/17 16:59 Sulfa (Sulfonamide Allergy Unknown Verified 08/17/17 16:59 Antibiotics) zolpidem tartrate Allergy Unknown Verified 08/17/17 16:59 [From Ambien] latex AdvReac Itching Verified 08/17/17 16:59 lorazepam [From Ativan] AdvReac Hives Verified 12/03/16 08:52 potassium AdvReac Swelling Verified 12/03/16 08:52 risperidone [From Risperdal] AdvReac Unknown Verified 12/03/16 08:52 trazodone AdvReac Swelling Verified 12/21/16 23:06 ED Review of Systems ROS: Stated complaint: VAGINAL BLEEDING Other details as noted in HPI Constitutional: denies: fever Eyes: denies: eye discharge ENT: denies: epistaxis Respiratory: denies: cough Cardiovascular: denies: chest pain Gastrointestinal: denies: vomiting Genitourinary: hematuria. denies: dysuria Musculoskeletal: other (patient also complains of chronic bilateral inguinal pain.) Psychiatric: anxiety ED Past Medical Hx - Past Medical History Hx Hypertension: Yes Hx Heart Attack/AMI: No Hx Congestive Heart Failure: Yes Hx Diabetes: Yes Hx Deep Vein Thrombosis: Yes Hx Pulmonary Embolism: No Hx Seizures: Yes Hx Psychiatric Treatment: Yes (bipolar / SCHIZOAFFECTIVE DISORDER) Hx Asthma: No Hx COPD: No Hx Tuberculosis: No Hx HIV: No Additional medical history: high cholesterol - Surgical History Hx Coronary Stent: No Hx Pacemaker: No Hx Internal Defibrillator: No Hx Cholecystectomy: Yes Hx Appendectomy: Yes Additional Surgical History: hysterectomy. cervical fusion - Social History Smoking Status: Never Smoker Substance Use Type: None - Medications Home Medications: Home Medications Medication Instructions Recorded Confirmed Last Taken Type Benztropine [Cogentin] 1 mg PO BID 12/03/16 04/06/17 04/06/17 08:00 History Simvastatin [Zocor TAB] 40 mg PO QHS 12/03/16 04/06/17 04/05/17 History [place] Carbonate [Eskalith] 150 mg PO BID #60 capsule 12/04/16 04/06/17 08:00 Rx traMADol [Ultram] 50 mg PO Q6HR PRN #10 tablet 03/23/17 04/06/17 04/06/17 08:00 Rx Ergocalciferol [Vitamin D2] 1 cap PO QWEEK 04/06/17 04/06/17 Unknown History Pantoprazole [Protonix] 40 mg PO QDAY 04/06/17 04/06/17 04/06/17 08:00 History fluPHENAZine HCL [Prolixin] 5 mg PO HS 04/06/17 04/06/17 04/05/17 History HYDROcodone/APAP 5-325 [[place] 1 each PO Q4HR PRN #20 tablet 04/09/17 Unknown Rx 5/325] Levofloxacin [Levaquin TAB] 500 mg PO QDAY #3 tablet 04/09/17 Unknown Rx metroNIDAZOLE [Flagyl] 500 mg PO Q8HR #9 tablet 04/09/17 Unknown Rx metroNIDAZOLE [Flagyl] 500 mg PO Q8HR 9 Days tablet 04/09/17 Unknown Rx Naproxen [Naprosyn TAB] 500 mg PO BID PRN #25 tablet 05/27/17 Unknown Rx traMADol [Ultram] 50 mg PO Q6HR PRN #10 tablet 07/07/17 Unknown Rx ED Physical Exam - General Limitations: No Limitations General appearance: alert, in no apparent distress - Head Head exam: Present: atraumatic, normocephalic - Eye Eye exam: Present: normal appearance, EOMI. Absent: nystagmus - ENT ENT exam: Present: normal exam, normal orophraynx, mucous membranes moist, normal external ear exam - Neck Neck exam: Present: normal inspection, full ROM - Respiratory Respiratory exam: Present: normal lung sounds bilaterally. Absent: respiratory distress - Cardiovascular Cardiovascular Exam: Present: regular rate, normal rhythm, normal heart sounds. Absent: systolic murmur, diastolic murmur, rubs, gallop - GI/Abdominal GI/Abdominal exam: Present: soft, normal bowel sounds. Absent: distended, tenderness, guarding, rebound, rigid - Rectal Rectal exam: Present: normal inspection - External exam: Present: normal external exam Speculum exam: Present: normal speculum exam. Absent: cervical discharge, vaginal bleeding, foreign body Bi-manual exam: Present: other (escorted by nurse RICHARD FREY) - Extremities Exam Extremities exam: Present: normal inspection, full ROM, normal capillary refill. Absent: pedal edema, joint swelling, calf tenderness - Back Exam Back exam: Present: normal inspection - Neurological Exam Neurological exam: Present: alert, oriented X3, normal gait, other (Extraocular movements intact. Tongue midline. No facial droop. Facial sensation intact to light touch in the V1, V2, V3 distribution bilaterally. 5 and 5 strength in 4 extremities.. Sensation is intact to light touch in 4 extremities.). Absent : motor sensory deficit - Psychiatric Psychiatric exam: Present: anxious - Skin Skin exam: Present: warm, dry, intact, normal color. Absent: rash ED Course Vital Signs 08/17/17 08/18/17 08/18/17 16:59 01:37 01:39 Temperature 98.3 F Pulse Rate 97 H 92 H Respiratory 20 21 18 Rate Blood Pressure 159/93 113/78 O2 Sat by Pulse 100 Oximetry ED Medical Decision Making - Lab Data Result diagrams: 08/17/17 17:51 08/17/17 17:51 Vital Signs 08/17/17 08/18/17 08/18/17 16:59 01:37 01:39 Temperature 98.3 F Pulse Rate 97 H 92 H Respiratory 20 21 18 Rate Blood Pressure 159/93 113/78 O2 Sat by Pulse 100 Oximetry Lab Results 08/17/17 08/17/17 08/17/17 Range/Units 17:51 17:51 17:55 WBC 9.2 (4.5-11.0) K/mm3 RBC 4.85 (3.65-5.03) M/mm3 Hgb 14.2 (10.1-14.3) gm/dl Hct 43.4 H (30.3-42.9) % MCV 90 (79-97) fl MCH 29 (28-32) pg MCHC 33 (30-34) % RDW 15.1 (13.2-15.2) % Plt Count 220 (140-440) K/mm3 Lymph % (Auto) 22.1 (13.4-35.0) % [place] % (Auto) 8.0 H (0.0-7.3) % Eos % (Auto) 1.6 (0.0-4.3) % Baso % (Auto) 1.1 (0.0-1.8) % Lymph # 2.0 (1.2-5.4) K/mm3 [place] # 0.7 (0.0-0.8) K/mm3 Eos # 0.1 (0.0-0.4) K/mm3 Baso # 0.1 (0.0-0.1) K/mm3 Seg Neutrophils % 67.2 (40.0-70.0) % Seg Neutrophils # 6.2 (1.8-7.7) K/mm3 Sodium 139 (137-145) mmol/L Potassium 4.0 (3.6-5.0) mmol/L Chloride 98.8 (98-107) mmol/L Carbon Dioxide 26 (22-30) mmol/L Anion Gap 18 mmol/L BUN 11 (7-17) mg/dL Creatinine 0.6 L (0.7-1.2) mg/dL Estimated GFR > 60 ml/min BUN/Creatinine Ratio 18 % Glucose 96 (65-100) mg/dL Calcium 10.1 (8.4-10.2) mg/dL Total Bilirubin 0.20 (0.1-1.2) mg/dL AST 11 (5-40) units/L ALT 9 (7-56) units/L Alkaline Phosphatase 80 (35-129) units/L Total Protein 7.7 (6.3-8.2) g/dL Albumin 4.4 (3.9-5) g/dL Albumin/Globulin Ratio 1.3 % Lipase 25 (13-60) units/L Urine Color (Yellow) Urine Turbidity (Clear) Urine pH (5.0-7.0) Ur Specific [place] (1.003-1.030) Urine Protein (Negative) mg/dL Urine Glucose (UA) (Negative) mg/dL Urine Ketones (Negative) mg/dL Urine Blood (Negative) Urine Nitrite (Negative) Urine Bilirubin (Negative) Urine Urobilinogen (<2.0) mg/dL Ur Leukocyte Esterase (Negative) Urine WBC (Auto) (0.0-6.0) /HPF Urine RBC (Auto) (0.0-6.0) /HPF U Epithel Cells (Auto) (0-13.0) /HPF Urine Bacteria (Auto) (Negative) /HPF Urine Mucus /HPF Blood Type O POSITIVE Antibody Screen Negative 08/18/17 Range/Units 02:03 WBC (4.5-11.0) K/mm3 RBC (3.65-5.03) M/mm3 Hgb (10.1-14.3) gm/dl Hct (30.3-42.9) % MCV (79-97) fl MCH (28-32) pg MCHC (30-34) % RDW (13.2-15.2) % Plt Count (140-440) K/mm3 Lymph % (Auto) (13.4-35.0) % [place] % (Auto) (0.0-7.3) % Eos % (Auto) (0.0-4.3) % Baso % (Auto) (0.0-1.8) % Lymph # (1.2-5.4) K/mm3 [place] # (0.0-0.8) K/mm3 Eos # (0.0-0.4) K/mm3 Baso # (0.0-0.1) K/mm3 Seg Neutrophils % (40.0-70.0) % Seg Neutrophils # (1.8-7.7) K/mm3 Sodium (137-145) mmol/L Potassium (3.6-5.0) mmol/L Chloride (98-107) mmol/L Carbon Dioxide (22-30) mmol/L Anion Gap mmol/L BUN (7-17) mg/dL Creatinine (0.7-1.2) mg/dL Estimated GFR ml/min BUN/Creatinine Ratio % Glucose (65-100) mg/dL Calcium (8.4-10.2) mg/dL Total Bilirubin (0.1-1.2) mg/dL AST (5-40) units/L ALT (7-56) units/L Alkaline Phosphatase (35-129) units/L Total Protein (6.3-8.2) g/dL Albumin (3.9-5) g/dL Albumin/Globulin Ratio % Lipase (13-60) units/L Urine Color Yellow (Yellow) Urine Turbidity Clear (Clear) Urine pH 6.0 (5.0-7.0) Ur Specific [place] 1.010 (1.003-1.030) Urine Protein 30 mg/dl (Negative) mg/dL Urine Glucose (UA) Neg (Negative) mg/dL Urine Ketones Neg (Negative) mg/dL Urine Blood Lg (Negative) Urine Nitrite Neg (Negative) Urine Bilirubin Neg (Negative) Urine Urobilinogen < 2.0 (<2.0) mg/dL Ur Leukocyte Esterase Sm (Negative) Urine WBC (Auto) 4.0 (0.0-6.0) /HPF Urine RBC (Auto) 39.0 (0.0-6.0) /HPF U Epithel Cells (Auto) 1.0 (0-13.0) /HPF Urine Bacteria (Auto) 1+ (Negative) /HPF Urine Mucus Few /HPF Blood Type Antibody Screen - Medical Decision Making Differential diagnosis, including but not limited to: Genitourinary malignancy, urinary tract infection, vaginitis, rectal bleeding Assessment and plan: 41-year-old female with complaint of probable hematuria. She is afebrile with reassuring vital signs. Her physical exam is unremarkable. No obvious blood from rectal examination externally. Hemoglobin and hematocrit appropriate. Urinalysis demonstrates hematuria that is microscopic, without evidence of urinary tract infection, and the patient does not endorse irritative or obstructive urinary symptoms. Vital signs have remained stable while in the department. At this point in time, patient's symptoms have been present for weeks. It is not appeared to be an emergent indication for imaging or further evaluation the ER at this time, she is instructed to follow-up with her outpatient primary care doctor or urologist for consideration for cystoscopy. Critical care attestation.: If time is entered above; I have spent that time in minutes in the direct care of this critically ill patient, excluding procedure time. ED Disposition Clinical Impression: Hematuria Qualifiers: Hematuria type: unspecified type Qualified Code(s): R31.9 - Hematuria, unspecified Disposition: DC- TO HOME OR SELFCARE Is pt being admited?: No Does the pt Need Aspirin: No Condition: Stable Instructions: Acute Hematuria (ED) Additional Instructions: Continue outpatient medications. Follow up with your primary care doctor or urologist within the next [address] Reyes Donnelly is a local primary care doctor. Dr. Lorenzana is a local urology specialist. It is very important to follow-up with an outpatient urology experts for the bleeding in the bladder. Not following up as recommended may result in undiagnosed tumor, cancer, or malignancy. Please return to the ER right away with new pain, worsened pain, migration of pain, fevers, chills, lethargy, irritability, projectile vomiting, change in mental status, confusion, inability to tolerate liquid feeds, defecating joaqu[place] and gross blood, loss of consciousness. Referrals: PRIMARY CAREMD [Primary Care Provider] - 3-5 Days DIEGO LYNNE MD [Staff Physician] - 3-5 Days REYES DONNELLY MD [Staff Physician] - 3-5 Days
[2017-08-18 04:57] VITALS: BP 146/96
== END 2017-08-18 04:59 | disposition home or self-care (01) ==
LOC: ED 16:53
DX: R31.9 Hematuria, unspecified (principal); N93.9 Abnormal uterine and vaginal bleeding, unspecified; I10 Essential (primary) hypertension; I50.9 Heart failure, unspecified; E11.9 Type 2 diabetes mellitus without complications; R56.9 Unspecified convulsions; E78.5 Hyperlipidemia, unspecified; I82.409 Acute embolism and thrombosis of unspecified deep veins of unspecified lower extremity; Z90.49 Acquired absence of other specified parts of digestive tract; Z90.710 Acquired absence of both cervix and uterus; Z88.2 Allergy status to sulfonamides; Z88.6 Allergy status to analgesic agent; Z88.8 Allergy status to other drugs, medicaments and biological substances
CPT/HCPCS: 36415; 80053; 81001; 83690; 85025; 86850; 86900; 86901; 99284

== ENCOUNTER 2017-08-19 08:16 | Emergency (ER) | payer MEDICARE ==
[2017-08-19 09:42] LABS: Bilirubin,Urine NEG (Negative); Blood,Urine NEG (Negative); Ketones,Urine NEG (Negative); Leukocyte Esterase,Urine NEG (Negative); Mucus,Urine FEW /HPF; Nitrite,Urine NEG (Negative); Protein,Urine <15 mg/dL mg/dL (Negative); Urobilinogen,Urine < 2.0 mg/dL (<2.0)
[2017-08-19 10:00] LABS: Basophils % (Auto) 0.4 % (0.0-1.8); Eosinophils % (Auto) 1.2 % (0.0-4.3); Hematocrit 40.3 % (30.3-42.9); Hemoglobin 13.3 gm/dl (10.1-14.3); Mean Corpuscular HGB Conc 33 % (30-34); Mean Corpuscular Hemoglobin 29 pg (28-32); Mean Corpuscular Volume 89 fl (79-97); Platelet Count 195 K/mm3 (140-440); Red Blood Count 4.54 M/mm3 (3.65-5.03); Red Cell Distribution Width 15.1 % (13.2-15.2); White Blood Count 7.9 K/mm3 (4.5-11.0)
[2017-08-19 13:20] VITALS: BP 108/70
--- NOTE | 2017-08-19 14:39 | Emergency Department Report ---
ED General Adult HPI - General Chief complaint: Vaginal Bleeding Stated complaint: VAG BLEEDING Time Seen by Provider: 08/19/17 12:58 Source: patient Mode of arrival: Ambulatory Limitations: No Limitations - History of Present Illness Initial comments: This is a 41-year-old female, patient presents to the ER with vaginal spotting, intermittent dysuria, and possible rectal bleeding. Symptoms are constant for the past 3 days, they do not radiate anywhere, they have no exacerbating or relieving factors. -: Gradual, days(s) Location: genitals Radiation: non-radiation Consistency: constant Improves with: none Worsens with: none Associated Symptoms: denies: confusion, chest pain, cough, diaphoresis, fever/ chills, headaches, loss of appetite, malaise, nausea/vomiting, rash, shortness of breath, syncope, weakness - Related Data Home Medications Medication Instructions Recorded Confirmed Last Taken Benztropine [Cogentin] 1 mg PO BID 12/03/16 04/06/17 04/06/17 08:00 Simvastatin [Zocor TAB] 40 mg PO QHS 12/03/16 04/06/17 04/05/17 Ergocalciferol [Vitamin D2] 1 cap PO QWEEK 04/06/17 04/06/17 Unknown Pantoprazole [Protonix] 40 mg PO QDAY 04/06/17 04/06/17 04/06/17 08:00 fluPHENAZine HCL [Prolixin] 5 mg PO HS 04/06/17 04/06/17 04/05/17 Previous Rx's Medication Instructions Recorded Last Taken Type [place] Carbonate [Eskalith] 150 mg PO BID #60 capsule 12/04/16 04/06/17 08:00 Rx traMADol [Ultram] 50 mg PO Q6HR PRN #10 tablet 03/23/17 04/06/17 08:00 Rx HYDROcodone/APAP 5-325 [[place] 1 each PO Q4HR PRN #20 tablet 04/09/17 Unknown Rx 5/325] Levofloxacin [Levaquin TAB] 500 mg PO QDAY #3 tablet 04/09/17 Unknown Rx metroNIDAZOLE [Flagyl] 500 mg PO Q8HR #9 tablet 04/09/17 Unknown Rx metroNIDAZOLE [Flagyl] 500 mg PO Q8HR 9 Days tablet 04/09/17 Unknown Rx Naproxen [Naprosyn TAB] 500 mg PO BID PRN #25 tablet 05/27/17 Unknown Rx traMADol [Ultram] 50 mg PO Q6HR PRN #10 tablet 07/07/17 Unknown Rx Pantoprazole [Protonix] 40 mg PO QDAY #30 tablet 08/19/17 Unknown Rx Allergies Allergy/AdvReac Type Severity Reaction Status Date / Time acetaminophen [From Midol] Allergy Unknown Verified 08/17/17 16:59 haloperidol [From Haldol] Allergy Unknown Verified 08/17/17 16:59 haloperidol lactate Allergy Unknown Verified 08/17/17 16:59 [From Haldol] hydroxyzine HCl Allergy Unknown Verified 08/17/17 16:59 [From Vistaril] hydroxyzine pamoate Allergy Unknown Verified 08/17/17 16:59 [From Vistaril] iodine Allergy Headache Verified 08/17/17 16:59 pamabrom [From Midol] Allergy Unknown Verified 08/17/17 16:59 Sulfa (Sulfonamide Allergy Unknown Verified 08/17/17 16:59 Antibiotics) zolpidem tartrate Allergy Unknown Verified 08/17/17 16:59 [From Ambien] latex AdvReac Itching Verified 08/17/17 16:59 lorazepam [From Ativan] AdvReac Hives Verified 12/03/16 08:52 potassium AdvReac Swelling Verified 12/03/16 08:52 risperidone [From Risperdal] AdvReac Unknown Verified 12/03/16 08:52 trazodone AdvReac Swelling Verified 12/21/16 23:06 ED Review of Systems ROS: Stated complaint: VAG BLEEDING Other details as noted in HPI ED Past Medical Hx - Past Medical History Previous Medical History?: Yes Hx Hypertension: Yes Hx Heart Attack/AMI: No Hx Congestive Heart Failure: Yes Hx Diabetes: Yes Hx Deep Vein Thrombosis: Yes Hx Pulmonary Embolism: No Hx Seizures: Yes Hx Psychiatric Treatment: Yes (bipolar / SCHIZOAFFECTIVE DISORDER) Hx Asthma: No Hx COPD: No Hx Tuberculosis: No Hx HIV: No Additional medical history: high cholesterol - Surgical History Hx Coronary Stent: No Hx Pacemaker: No Hx Internal Defibrillator: No Hx Cholecystectomy: Yes Hx Appendectomy: Yes Additional Surgical History: hysterectomy. cervical fusion - Social History Smoking Status: Never Smoker Substance Use Type: None - Medications Home Medications: Home Medications Medication Instructions Recorded Confirmed Last Taken Type Benztropine [Cogentin] 1 mg PO BID 12/03/16 04/06/17 04/06/17 08:00 History Simvastatin [Zocor TAB] 40 mg PO QHS 12/03/16 04/06/17 04/05/17 History [place] Carbonate [Eskalith] 150 mg PO BID #60 capsule 12/04/16 04/06/17 08:00 Rx traMADol [Ultram] 50 mg PO Q6HR PRN #10 tablet 03/23/17 04/06/17 04/06/17 08:00 Rx Ergocalciferol [Vitamin D2] 1 cap PO QWEEK 04/06/17 04/06/17 Unknown History Pantoprazole [Protonix] 40 mg PO QDAY 04/06/17 04/06/17 04/06/17 08:00 History fluPHENAZine HCL [Prolixin] 5 mg PO HS 04/06/17 04/06/17 04/05/17 History HYDROcodone/APAP 5-325 [[place] 1 each PO Q4HR PRN #20 tablet 04/09/17 Unknown Rx 5/325] Levofloxacin [Levaquin TAB] 500 mg PO QDAY #3 tablet 04/09/17 Unknown Rx metroNIDAZOLE [Flagyl] 500 mg PO Q8HR #9 tablet 04/09/17 Unknown Rx metroNIDAZOLE [Flagyl] 500 mg PO Q8HR 9 Days tablet 04/09/17 Unknown Rx Naproxen [Naprosyn TAB] 500 mg PO BID PRN #25 tablet 05/27/17 Unknown Rx traMADol [Ultram] 50 mg PO Q6HR PRN #10 tablet 07/07/17 Unknown Rx Pantoprazole [Protonix] 40 mg PO QDAY #30 tablet 08/19/17 Unknown Rx ED Physical Exam - General Limitations: No Limitations General appearance: alert, in no apparent distress - Head Head exam: Present: atraumatic, normocephalic - Eye Eye exam: Present: normal appearance, EOMI. Absent: nystagmus - ENT ENT exam: Present: normal exam, normal orophraynx, mucous membranes moist, normal external ear exam - Neck Neck exam: Present: normal inspection, full ROM - Respiratory Respiratory exam: Present: normal lung sounds bilaterally. Absent: respiratory distress - Cardiovascular Cardiovascular Exam: Present: regular rate, normal rhythm, normal heart sounds. Absent: systolic murmur, diastolic murmur, rubs, gallop - GI/Abdominal GI/Abdominal exam: Present: soft, normal bowel sounds. Absent: distended, tenderness, guarding, rebound, rigid - Rectal Rectal exam: Present: normal inspection (escorted by nurse Holly stein), normal rectal tone, heme (+) stool, other (Brown stool, guaiac positive) - External exam: Present: normal external exam Speculum exam: Absent: vaginal bleeding Bi-manual exam: Present: other (escorted by nurse Holly) - Extremities Exam Extremities exam: Present: normal inspection, full ROM, normal capillary refill. Absent: pedal edema, joint swelling, calf tenderness - Back Exam Back exam: Present: normal inspection, full ROM. Absent: tenderness, CVA tenderness (R), paraspinal tenderness, vertebral tenderness - Neurological Exam Neurological exam: Present: alert, oriented X3, normal gait, other (Extraocular movements intact. Tongue midline. No facial droop. Facial sensation intact to light touch in the V1, V2, V3 distribution bilaterally. 5 and 5 strength in 4 extremities.. Sensation is intact to light touch in 4 extremities.). Absent : motor sensory deficit - Psychiatric Psychiatric exam: Present: anxious - Skin Skin exam: Present: warm, dry, intact, normal color. Absent: rash ED Course Vital Signs 08/19/17 08/19/17 08:48 13:15 Temperature 98.3 F Pulse Rate 92 H 91 H Respiratory 18 16 Rate Blood Pressure 111/68 Blood Pressure 108/70 [Left] O2 Sat by Pulse 99 96 Oximetry ED Medical Decision Making - Lab Data Result diagrams: 08/19/17 09:26 Vital Signs 08/19/17 08/19/17 08:48 13:15 Temperature 98.3 F Pulse Rate 92 H 91 H Respiratory 18 16 Rate Blood Pressure 111/68 Blood Pressure 108/70 [Left] O2 Sat by Pulse 99 96 Oximetry Lab Results 08/19/17 08/19/17 08/19/17 Range/Units 09:24 09:26 09:27 WBC 7.9 (4.5-11.0) K/mm3 RBC 4.54 (3.65-5.03) M/mm3 Hgb 13.3 (10.1-14.3) gm/dl Hct 40.3 (30.3-42.9) % MCV 89 (79-97) fl MCH 29 (28-32) pg MCHC 33 (30-34) % RDW 15.1 (13.2-15.2) % Plt Count 195 (140-440) K/mm3 Lymph % (Auto) 17.9 (13.4-35.0) % [place] % (Auto) 8.3 H (0.0-7.3) % Eos % (Auto) 1.2 (0.0-4.3) % Baso % (Auto) 0.4 (0.0-1.8) % Lymph # 1.4 (1.2-5.4) K/mm3 [place] # 0.7 (0.0-0.8) K/mm3 Eos # 0.1 (0.0-0.4) K/mm3 Baso # 0.0 (0.0-0.1) K/mm3 Seg Neutrophils % 72.2 H (40.0-70.0) % Seg Neutrophils # 5.7 (1.8-7.7) K/mm3 HCG, Quant (0-4) mIU/mL Urine Color Yellow (Yellow) Urine Turbidity Clear (Clear) Urine pH 7.0 (5.0-7.0) Ur Specific [place] 1.021 (1.003-1.030) Urine Protein <15 mg/dl (Negative) mg/dL Urine Glucose (UA) Neg (Negative) mg/dL Urine Ketones Neg (Negative) mg/dL Urine Blood Neg (Negative) Urine Nitrite Neg (Negative) Urine Bilirubin Neg (Negative) Urine Urobilinogen < 2.0 (<2.0) mg/dL Ur Leukocyte Esterase Neg (Negative) Urine WBC (Auto) 1.0 (0.0-6.0) /HPF Urine RBC (Auto) 3.0 (0.0-6.0) /HPF U Epithel Cells (Auto) 8.0 (0-13.0) /HPF Urine Mucus Few /HPF Blood Type O POSITIVE Antibody Screen Negative 08/19/17 Range/Units 09:32 WBC (4.5-11.0) K/mm3 RBC (3.65-5.03) M/mm3 Hgb (10.1-14.3) gm/dl Hct (30.3-42.9) % MCV (79-97) fl MCH (28-32) pg MCHC (30-34) % RDW (13.2-15.2) % Plt Count (140-440) K/mm3 Lymph % (Auto) (13.4-35.0) % [place] % (Auto) (0.0-7.3) % Eos % (Auto) (0.0-4.3) % Baso % (Auto) (0.0-1.8) % Lymph # (1.2-5.4) K/mm3 [place] # (0.0-0.8) K/mm3 Eos # (0.0-0.4) K/mm3 Baso # (0.0-0.1) K/mm3 Seg Neutrophils % (40.0-70.0) % Seg Neutrophils # (1.8-7.7) K/mm3 HCG, Quant < 2 (0-4) mIU/mL Urine Color (Yellow) Urine Turbidity (Clear) Urine pH (5.0-7.0) Ur Specific [place] (1.003-1.030) Urine Protein (Negative) mg/dL Urine Glucose (UA) (Negative) mg/dL Urine Ketones (Negative) mg/dL Urine Blood (Negative) Urine Nitrite (Negative) Urine Bilirubin (Negative) Urine Urobilinogen (<2.0) mg/dL Ur Leukocyte Esterase (Negative) Urine WBC (Auto) (0.0-6.0) /HPF Urine RBC (Auto) (0.0-6.0) /HPF U Epithel Cells (Auto) (0-13.0) /HPF Urine Mucus /HPF Blood Type Antibody Screen - Medical Decision Making Differential diagnosis, including not limited to: GI bleed, urinary tract infection, genitourinary malignancy, GI malignancy Assessment and plan: 41-year-old female with recurrent complaints of vaginal spotting, and possible bloody stool. She reports that her stool is "black." Rectal examination it is brown that is trace guaiac positive. Hemoglobin and hematocrit have been stable for months. Vital signs also been stable for months. Patient endorses some irritative urinary symptoms, but her urinalysis today is not consistent with a urinary tract infection. Reassurance provided to the patient, she is instructed that she'll need to follow up with outpatient gastroenterology and urology. Critical care attestation.: If time is entered above; I have spent that time in minutes in the direct care of this critically ill patient, excluding procedure time. ED Disposition Clinical Impression: Guaiac positive stools Disposition: TO HOME OR SELFCARE Is pt being admited?: No Does the pt Need Aspirin: No Condition: Stable Additional Instructions: Avoid consumption of Motrin, ibuprofen, Naprosyn, alcohol, heavy and/or spicy foods. Follow-up with a conveyancer within the next month. [facility] has a local patient service hotline which, which can be contacted at the following phone number: [phone] ([phone]) follow up with them as recommended; not following up with the conveyancer a result in an undiagnosed tumor, cancer, malignancy. Follow-up with the urology specialist within the next month. Not following up as recommended may result in undiagnosed tumor, cancer, malignancy. Return to the ER right away with new pain, worsened pain, migration of pain, fevers, chills, lethargy, irritability, projectile vomiting, change in mental status, confusion, inability to tolerate liquid feeds. Other options for urology included the following: [facility] clinic in [place], [place] Address: [address] [place] [address] [id number], [place] [address] Hours: Open today 9AM5PM Patient can also contacted [facility], Prescriptions: Pantoprazole [Protonix] 40 mg PO QDAY #30 tablet Referrals: NICHOLAS PURCELL MD [Primary Care Provider] - 3-5 Days SARAH NICOLE MD [Staff Physician] - 3-5 Days DIEGO LYNNE MD [Staff Physician] - 3-5 Days
== END 2017-08-19 14:57 | disposition home or self-care (01) ==
LOC: ED 08:16
DX: R19.5 Other fecal abnormalities (principal); I10 Essential (primary) hypertension; E11.9 Type 2 diabetes mellitus without complications
CPT/HCPCS: 36415; 81001; 82271; 84702; 85025; 86850; 86900; 86901

== ENCOUNTER 2017-09-23 08:15 | Emergency (ER) | payer MEDICARE ==
[2017-09-23 09:44] LABS: Basophils % (Auto) 0.3 % (0.0-1.8); Eosinophils # (Auto) 0.1 K/mm3 (0.0-0.4); Hematocrit 41.6 % (30.3-42.9); Hemoglobin 13.3 gm/dl (10.1-14.3); Lymphocytes # (Auto) 1.8 K/mm3 (1.2-5.4); Lymphocytes % (Auto) 20.8 % (13.4-35.0); Mean Corpuscular HGB Conc 32 % (30-34); Mean Corpuscular Hemoglobin 28 pg (28-32); Mean Corpuscular Volume 89 fl (79-97); Monocytes # (Auto) 0.8 K/mm3 (0.0-0.8); Monocytes % (Auto) 9.1 % (0.0-7.3); Platelet Count 202 K/mm3 (140-440); Red Cell Distribution Width 14.9 % (13.2-15.2)
[2017-09-23 11:28] LABS: Bacteria,Urine 1+ /HPF (Negative); Bilirubin,Urine NEG (Negative); Blood,Urine NEG (Negative); Color,Urine Yellow (Yellow); Nitrite,Urine NEG (Negative); Protein,Urine <15 mg/dL mg/dL (Negative); RBC,Urine < 1.0 /HPF (0.0-6.0); Urobilinogen,Urine < 2.0 mg/dL (<2.0)
[2017-09-23 17:32] VITALS: BP 110/63
--- NOTE | 2017-09-23 18:28 | Emergency Department Report ---
ED General Adult HPI - General Chief complaint: Vaginal Bleeding Stated complaint: CLOTS Time Seen by Provider: 09/23/17 17:24 Source: patient, RN notes reviewed, old records reviewed Mode of arrival: Ambulatory Limitations: No Limitations - History of Present Illness -: Gradual, year(s) Location: abdomen, pelvis, genitals Radiation: non-radiation Severity scale (0 -10): 9 Associated Symptoms: denies: confusion, chest pain, cough, diaphoresis, fever/ chills, headaches, loss of appetite, malaise, nausea/vomiting, rash, seizure, shortness of breath, syncope, weakness - Related Data Home Medications Medication Instructions Recorded Confirmed Last Taken Benztropine [Cogentin] 1 mg PO BID 12/03/16 04/06/17 04/06/17 08:00 fluPHENAZine HCL [Prolixin] 5 mg PO HS 04/06/17 04/06/17 04/05/17 Previous Rx's Medication Instructions Recorded Last Taken Type [place] Carbonate [Eskalith] 150 mg PO BID #60 capsule 12/04/16 04/06/17 08:00 Rx Allergies Allergy/AdvReac Type Severity Reaction Status Date / Time acetaminophen [From Midol] Allergy Unknown Verified 08/17/17 16:59 haloperidol [From Haldol] Allergy Unknown Verified 08/17/17 16:59 haloperidol lactate Allergy Unknown Verified 08/17/17 16:59 [From Haldol] hydroxyzine HCl Allergy Unknown Verified 08/17/17 16:59 [From Vistaril] hydroxyzine pamoate Allergy Unknown Verified 08/17/17 16:59 [From Vistaril] iodine Allergy Headache Verified 08/17/17 16:59 pamabrom [From Midol] Allergy Unknown Verified 08/17/17 16:59 Sulfa (Sulfonamide Allergy Unknown Verified 08/17/17 16:59 Antibiotics) zolpidem tartrate Allergy Unknown Verified 08/17/17 16:59 [From Ambien] latex AdvReac Itching Verified 08/17/17 16:59 lorazepam [From Ativan] AdvReac Hives Verified 12/03/16 08:52 potassium AdvReac Swelling Verified 12/03/16 08:52 risperidone [From Risperdal] AdvReac Unknown Verified 12/03/16 08:52 trazodone AdvReac Swelling Verified 12/21/16 23:06 ED Review of Systems ROS: Stated complaint: VAGINAL BLEEDING Other details as noted in HPI Comment: All other systems reviewed and negative Psychiatric: other (pt to er w co of clots. see note under course) ED Past Medical Hx - Past Medical History Hx Hypertension: Yes Hx Heart Attack/AMI: No Hx Congestive Heart Failure: Yes Hx Diabetes: Yes Hx Deep Vein Thrombosis: Yes Hx Pulmonary Embolism: No Hx Seizures: Yes Hx Psychiatric Treatment: Yes (bipolar / SCHIZOAFFECTIVE DISORDER) Hx Asthma: No Hx COPD: No Hx Tuberculosis: No Hx HIV: No Additional medical history: high cholesterol, blood clots in legs x5 yrs - Surgical History Hx Coronary Stent: No Hx Pacemaker: No Hx Internal Defibrillator: No Hx Cholecystectomy: Yes Hx Appendectomy: Yes Additional Surgical History: hysterectomy. cervical fusion - Social History Smoking Status: Never Smoker Substance Use Type: None - Medications Home Medications: Home Medications Medication Instructions Recorded Confirmed Last Taken Type Benztropine [Cogentin] 1 mg PO BID 12/03/16 04/06/17 04/06/17 08:00 History [place] Carbonate [Eskalith] 150 mg PO BID #60 capsule 12/04/16 04/06/17 08:00 Rx fluPHENAZine HCL [Prolixin] 5 mg PO HS 04/06/17 04/06/17 04/05/17 History ED Physical Exam - General Limitations: No Limitations ED Course Vital Signs 09/23/17 09/23/17 08:57 17:31 Temperature 98.3 F Pulse Rate 88 102 H Respiratory 20 20 Rate Blood Pressure 128/84 Blood Pressure 128/84 110/63 [Left] O2 Sat by Pulse 100 99 Oximetry - Reevaluation(s) Reevaluation #1: 09/23/17 18:56 to er today w co clots she told tech that clot was from her 2 y old incision then told me vaginal tech was w me when she said this and she said look she lifted her pend. abd and there was an old incision c/d/i i told her there were no clots she said look here you can feel them she put my hand on her abd no clots or masses found pt morbidly obese she then went on about blood in toilet pelvic revealed closed cervix thick with dc no odor no blood no rectal bleeding labs noted vss nad no abd pain no si no hi takes psych meds per pt ? delusions. Reevaluation #2: 09/23/17 18:50 Discussed with Abraham at [facility] he is aware of pts delusions and will pass on to psych, he said she is fixated on something being wrong w her. She has been to our er 17 times in last yr and she also talks of going to [place] and [place] [facility] Cultures sent and pt will need called for treatment if positive. dc home to [facility] in [place]. vss neuro intact pt reassured on dc that she was ok. ED Medical Decision Making - Lab Data Result diagrams: 09/23/17 09:19 - Medical Decision Making see note - Differential Diagnosis ro bleeding v delusions Critical care attestation.: If time is entered above; I have spent that time in minutes in the direct care of this critically ill patient, excluding procedure time. ED Disposition Clinical Impression: Bipolar disorder, Delusion Disposition: DC-01 TO HOME OR SELFCARE Is pt being admited?: No Does the pt Need Aspirin: No Condition: Stable Additional Instructions: FOLLOW UP WITH PSYCH KARISSA FOLLOW UP WITH YOUR URO, GI AND FIELD SUPERVISOR GROUPS Referrals: PRIMARY CARE, [Primary Care Provider] - 3-5 Days SANDRA CONNORS MD [Staff Physician] - 3-5 Days Time of Disposition: 18:39
== END 2017-09-23 18:57 | disposition home or self-care (01) ==
LOC: ED 08:15
DX: F31.9 Bipolar disorder, unspecified (principal); F22 Delusional disorders; N93.9 Abnormal uterine and vaginal bleeding, unspecified; I10 Essential (primary) hypertension; E11.9 Type 2 diabetes mellitus without complications; R56.9 Unspecified convulsions; E78.5 Hyperlipidemia, unspecified; Z90.710 Acquired absence of both cervix and uterus; Z88.2 Allergy status to sulfonamides; Z88.6 Allergy status to analgesic agent; Z88.8 Allergy status to other drugs, medicaments and biological substances; Z91.040 Latex allergy status
CPT/HCPCS: 36415; 81001; 84702; 85025; 86850; 86900; 86901; 87210; 87591; 99284

== ENCOUNTER 2017-11-17 20:30 | Emergency (ER) | payer MEDICARE ==
[2017-11-17] MEDS ORDERED: COLACE PO ONE (22:14)
[2017-11-17] MEDS ORDERED: MOTRIN PO ONE (22:14)
--- NOTE | 2017-11-17 22:18 | Emergency Department Report ---
HPI - General Chief Complaint: Extremity Injury, Lower Time Seen by Provider: 11/17/17 22:13 - HPI HPI: 42-year-old -[place]in[place] female with a past medical history of schizophrenia and bipolar as well as blood clots in her legs 5 years ago comes in complaining of swelling to legs for 2 days. Patient reports her legs up throbbing. She reports a selector twisting and tightness. Patient also elected to [facility] she has not had a bowel movement in 4 or 5 days and she is wondering if that could be a reason to. Patient reports that she is followed by vascular her next appointment is November 25. She is been using her ANIYAH hoses for a month. Patient reports that she is on a water pill. She is followed by [facility] Rebeca Soler and Dr. Hudson. He denies any shortness of breathing denies any chest pain no nausea no vomiting no fever no chills. Patient reports that she's been taking her antipsychotic medications as prescribed. ED Past Medical Hx - Past Medical History Hx Hypertension: Yes Hx Heart Attack/AMI: No Hx Congestive Heart Failure: Yes Hx Diabetes: Yes Hx Deep Vein Thrombosis: Yes Hx Pulmonary Embolism: No Hx Seizures: Yes Hx Psychiatric Treatment: Yes (bipolar / SCHIZOAFFECTIVE DISORDER) Hx Asthma: No Hx COPD: No Hx Tuberculosis: No Hx HIV: No Additional medical history: high cholesterol, blood clots in legs x5 yrs - Surgical History Hx Coronary Stent: No Hx Pacemaker: No Hx Internal Defibrillator: No Hx Cholecystectomy: Yes Hx Appendectomy: Yes Additional Surgical History: hysterectomy. cervical fusion - Social History Smoking Status: Never Smoker Substance Use Type: None - Medications Home Medications: Home Medications Medication Instructions Recorded Confirmed Last Taken Type Benztropine [Cogentin] 1 mg PO BID 12/03/16 04/06/17 04/06/17 08:00 History [place] Carbonate [Eskalith] 150 mg PO BID #60 capsule 12/04/16 04/06/17 08:00 Rx fluPHENAZine HCL [Prolixin] 5 mg PO HS 04/06/17 04/06/17 04/05/17 History Ibuprofen [Motrin 800 MG tab] 800 mg PO Q8H PRN #12 tablet 11/17/17 Unknown Rx ED Review of Systems ROS: Stated complaint: SWOLLEN BILATERAL LOWER EXTREMITIES Other details as noted in HPI Constitutional: denies: chills, fever Eyes: denies: eye pain, eye discharge, vision change ENT: denies: ear pain, throat pain Respiratory: denies: cough, shortness of breath, wheezing Cardiovascular: denies: chest pain, palpitations Endocrine: no symptoms reported Gastrointestinal: denies: abdominal pain, nausea, diarrhea Genitourinary: denies: urgency, dysuria, discharge Musculoskeletal: other (lower leg swelling). denies: back pain, joint swelling , arthralgia Skin: denies: rash, lesions Neurological: denies: headache, weakness, paresthesias Psychiatric: denies: anxiety, depression Hematological/Lymphatic: denies: easy bleeding, easy bruising Physical Exam - Physical Exam Vital Signs: Vital Signs 11/17/17 20:35 Temperature 97.3 F L Pulse Rate 98 H Respiratory 18 Rate Blood Pressure 116/60 O2 Sat by Pulse 98 Oximetry Physical Exam: GENERAL: Alert and oriented x3, no apparent distress, Normal Gait, atraumatic. HEAD: Head is normocephalic and a-traumatic. EYES: Extra ocular muscles are intact. Pupils are equal, round, and reactive to light and accommodation. EARS: symetrical, atraumatic, non tender, ear canal clear and moderate cerumen, tympanic membrance non inflamed. gross auditory nml bilaterally. NOSE: Nose symetrical, Nontender,Nares appeared normal. MOUTH:Mouth is well hydrated and without lesions. Tonsils nonerythematous or swollen, Uvula midline, Tongue not elevated. Mucous membranes are moist. Posterior pharynx clear, no exudate or lesions. Patent airways. NECK: Supple. Non edematous, No carotid bruits. No lymphadenopathy or thyromegaly. LUNGS: Symetrical with respiration, No wheezing, no rales or crackles, CTAB. HEART: S1, S2 present, regular rate and rhythm without murmur, no rubs, no gallops. ABDOMEN: No organomegaly was noted,Positive bowel sounds, soft, and non- distended. . Nontender to palpation on all Quadrants, NO CVA tenderness. EXTREMITIES/MUSCULOSKELETAL: No cyanosis, clubbing, rash, lesions or edema. Full ROM bilaterally. UE/LE Pulses 2+ bilaterally. LE and UE 5+ strength bilaterally NEUROLOGIC: No focal Deficit, Cranial nerves II through XII are grossly intact. No loss of sensation, No facial droop, PSYCHIATRIC: Mood is congruent with affect, denies suicidal or homicidal ideations. SKIN: Warm and dry, No lesions, No ulceration or induration present ED Course Vital Signs 11/17/17 20:35 Temperature 97.3 F L Pulse Rate 98 H Respiratory 18 Rate Blood Pressure 116/60 O2 Sat by Pulse 98 Oximetry ED Medical Decision Making - Lab Data Result diagrams: 11/17/17 23:18 - Medical Decision Making Patient been evaluated by this provider fast track. CBC CMP and d-dimer was ordered. D-dimer result is less than 135. I would discharge patient to have her follow up with her primary care provider. Patient was given ibuprofen for leg pain. Patient denies any shortness of breathing. She is stable to go home. Patient verbalized understanding. Critical care attestation.: If time is entered above; I have spent that time in minutes in the direct care of this critically ill patient, excluding procedure time. ED Disposition Clinical Impression: Leg pain, bilateral Disposition: DC-01 TO HOME OR SELFCARE Is pt being admited?: No Does the pt Need Aspirin: No Condition: Stable Additional Instructions: Case take all your medications as prescribed. Please follow-up with [facility] for further evaluation. Prescriptions: Ibuprofen [Motrin 800 MG tab] 800 mg PO Q8H PRN #12 tablet PRN Reason: Pain Referrals: SELINA MACE MD [Primary Care Provider] - 3-5 Days [facility] [Provider Group] - 3-5 Days
[2017-11-17 23:42] LABS: BUN/Creatinine Ratio 15; Blood Urea Nitrogen 9 mg/dL (7-17); Calcium 9.7 mg/dL (8.4-10.2); Hemolysis Index 2
[2017-11-17 23:58] LABS: Hematocrit 40.7 % (30.3-42.9); Hemoglobin 13.4 gm/dl (10.1-14.3); Mean Corpuscular HGB Conc 33 % (30-34); Mean Corpuscular Hemoglobin 28 pg (28-32); Mean Corpuscular Volume 86 fl (79-97); Platelet Count 212 K/mm3 (140-440); Red Blood Count 4.73 M/mm3 (3.65-5.03); Red Cell Distribution Width 15.3 % (13.2-15.2)
[2017-11-18 00:07] VITALS: BP 115/72
[2017-11-18 02:12] LABS: Band Neutrophils # (Manual) 0.2 K/mm3; Basophils % (Manual) 0 % (0.0-1.8); Eosinophils % (Manual) 0 % (0.0-4.3); Total Cells Counted 100
[2017-11-18 02:13] LABS: Anisocytosis 1+; Giant Platelets Few
== END 2017-11-18 00:09 | disposition home or self-care (01) ==
LOC: ED 20:30
DX: M79.604 Pain in right leg (principal); M79.605 Pain in left leg; I11.0 Hypertensive heart disease with heart failure; E11.9 Type 2 diabetes mellitus without complications; Z86.718 Personal history of other venous thrombosis and embolism; F31.9 Bipolar disorder, unspecified; E78.00 Pure hypercholesterolemia, unspecified; Z90.710 Acquired absence of both cervix and uterus; Z90.49 Acquired absence of other specified parts of digestive tract
CPT/HCPCS: 36415; 80048; 85007; 85025; 85379; 99283

== ENCOUNTER 2017-12-03 13:52 | Emergency (ER) | payer MEDICARE ==
[2017-12-03 14:58] VITALS: BP 128/96
[2017-12-03] MEDS ORDERED: ULTRAM PO ONE (17:56)
[2017-12-03] MEDS ORDERED: LASIX PO ONE (17:56)
--- NOTE | 2017-12-03 18:19 | Emergency Department Report ---
HPI - General Chief Complaint: Extremity Problem,Nontraumatic Time Seen by Provider: 12/03/17 17:54 - HPI HPI: The patient is a 42-year-old female with a history of chronic lower leg pain, who presents for recurrence of leg pain. The patient reports bilateral lower leg pain for the past 2 months, achy in quality, moderate severity, exacerbated with ambulation, improved with rest. She denies, injury to the legs prior to symptom recurrence, fever, leg swelling, color change, oozing or redness, paresthesias, or motor deficit. ED Past Medical Hx - Past Medical History Hx Hypertension: Yes Hx Heart Attack/AMI: No Hx Congestive Heart Failure: Yes Hx Diabetes: Yes Hx Deep Vein Thrombosis: Yes Hx Pulmonary Embolism: No Hx Seizures: Yes Hx Psychiatric Treatment: Yes (bipolar / SCHIZOAFFECTIVE DISORDER) Hx Asthma: No Hx COPD: No Hx Tuberculosis: No Hx HIV: No Additional medical history: high cholesterol, blood clots in legs x5 yrs - Surgical History Hx Coronary Stent: No Hx Pacemaker: No Hx Internal Defibrillator: No Hx Cholecystectomy: Yes Hx Appendectomy: Yes Additional Surgical History: hysterectomy. cervical fusion - Social History Smoking Status: Never Smoker Substance Use Type: None - Medications Home Medications: Home Medications Medication Instructions Recorded Confirmed Last Taken Type Benztropine [Cogentin] 1 mg PO BID 12/03/16 04/06/17 04/06/17 08:00 History [place] Carbonate [Eskalith] 150 mg PO BID #60 capsule 12/04/16 04/06/17 08:00 Rx fluPHENAZine HCL [Prolixin] 5 mg PO HS 04/06/17 04/06/17 04/05/17 History Ibuprofen [Motrin 800 MG tab] 800 mg PO Q8H PRN #12 tablet 11/17/17 Unknown Rx Furosemide [Lasix] 20 mg PO QDAY #20 tablet 12/03/17 Unknown Rx traMADol [Ultram 50 MG tab] 50 mg PO Q6HR PRN #12 tablet 12/03/17 Unknown Rx ED Review of Systems ROS: Stated complaint: BILATERAL LEG PAIN Other details as noted in HPI Constitutional: denies: fever ENT: denies: throat or neck pain Respiratory: denies: cough, shortness of breath Cardiovascular: denies: chest pain Endocrine: denies unexplained weight loss or gain Gastrointestinal: denies: abdominal pain, nausea Genitourinary: denies: dysuria Musculoskeletal: reports leg pain denies: leg swelling Skin: denies: rash Neurological: denies: headache Hematological/Lymphatic: denies: easy bleeding or easy bruising Psych: denies sadness or hopelessness Physical Exam - Physical Exam Vital Signs: Vital Signs 12/03/17 14:10 Temperature 97.7 F Pulse Rate 93 H Respiratory 18 Rate Blood Pressure 128/96 O2 Sat by Pulse 100 Oximetry Physical Exam: General: well-nourished, well-developed, no acute distress Head: Normocephalic, atraumatic Eyes: normal sclera ENT: Mucous membranes are pink and moist Neck: trachea midline, neck supple, No neck stiffness, no cervical adenopathy Respiratory: Breath sounds equal bilaterally, no wheezing, rales, or rhonchi Cardio: S1 and S2 present, no murmurs, rubs, gallops, capillary refill is brisk Abdomen: Normoactive bowel sounds, soft abdomen, no tenderness Musc: Bilateral distal lower leg tenderness to palpation present circumferentially, 1+ pitting edema bilaterally, no calf muscle tenderness, no redness, fluctuance, crepitus, or bruising Skin: No rash Neuro: no facial drooping, normal speech Psych: Normal affect ED Course Vital Signs 12/03/17 14:10 Temperature 97.7 F Pulse Rate 93 H Respiratory 18 Rate Blood Pressure 128/96 O2 Sat by Pulse 100 Oximetry ED Medical Decision Making - Medical Decision Making The patient was seen and examined by myself. The patient is placed on a threat monitoring analyst and continuous pulse ox. On initial evaluation, the patient was found to be in no distress. The patient given pain medicine and Lasix for treatment of leg swelling. No signs of acute DVT on exam. The patient was reevaluated and reported that their symptoms were markedly improved. The patient is stable for discharge with outpatient follow-up. The patient is given follow-up and return instructions. The patient expressed understanding and agreed with the plan. The patient is discharged in stable condition. Critical care attestation.: If time is entered above; I have spent that time in minutes in the direct care of this critically ill patient, excluding procedure time. ED Disposition Clinical Impression: Bilateral lower extremity pain, Localized swelling of both lower legs Disposition: - TO HOME OR SELFCARE Is pt being admited?: No Does the pt Need Aspirin: No Condition: Stable Instructions: Leg Edema (ED), Musculoskeletal Pain (ED) Prescriptions: Furosemide [Lasix] 20 mg PO QDAY #20 tablet traMADol [Ultram 50 MG tab] 50 mg PO Q6HR PRN #12 tablet PRN Reason: Pain Referrals: PRIMARY CARE, [Primary Care Provider] - 3-5 Days Time of Disposition: 18:16
== END 2017-12-03 18:33 | disposition home or self-care (01) ==
LOC: ED 13:52
DX: M79.605 Pain in left leg (principal); M79.604 Pain in right leg; I11.0 Hypertensive heart disease with heart failure; I50.9 Heart failure, unspecified; E11.9 Type 2 diabetes mellitus without complications; E78.00 Pure hypercholesterolemia, unspecified
CPT/HCPCS: 99283

== ENCOUNTER 2018-02-16 20:20 | Emergency (ER) | payer MEDICARE ==
[2018-02-16 21:36] LABS: Basophils % (Auto) 0.4 % (0.0-1.8); Eosinophils # (Auto) 0.1 K/mm3 (0.0-0.4); Eosinophils % (Auto) 1.2 % (0.0-4.3); Hematocrit 40.5 % (30.3-42.9); Hemoglobin 12.9 gm/dl (10.1-14.3); Lymphocytes # (Auto) 2.1 K/mm3 (1.2-5.4); Lymphocytes % (Auto) 22.9 % (13.4-35.0); Mean Corpuscular HGB Conc 32 % (30-34); Mean Corpuscular Hemoglobin 28 pg (28-32); Mean Corpuscular Volume 88 fl (79-97); Monocytes # (Auto) 0.7 K/mm3 (0.0-0.8); Monocytes % (Auto) 8.1 % (0.0-7.3); Platelet Count 219 K/mm3 (140-440); Red Blood Count 4.61 M/mm3 (3.65-5.03); Red Cell Distribution Width 15.7 % (13.2-15.2)
[2018-02-16 21:52] LABS: Alanine Aminotransferase 6 units/L (7-56); Albumin 4.3 g/dL (3.9-5); BUN/Creatinine Ratio 14; Blood Urea Nitrogen 10 mg/dL (7-17); Calcium 9.8 mg/dL (8.4-10.2); Hemolysis Index 3
[2018-02-17] MEDS ORDERED: TYLENOL ONE (02:57)
[2018-02-17] MEDS ORDERED: TYLENOL PO ONE (03:04)
--- NOTE | 2018-02-17 07:07 | Emergency Department Report ---
ED General Adult HPI - General Chief complaint: Abdominal Pain Stated complaint: LEG PAIN Time Seen by Provider: 02/17/18 06:54 Source: patient, RN notes reviewed, old records reviewed Mode of arrival: Ambulatory Limitations: No Limitations - History of Present Illness Initial comments: This is a 42-year-old female whom I have evaluated in the past. Past medical history includes appendectomy, hysterectomy, psychiatric disease, chronic DVT, currently anticoagulation, denies pulmonary embolus. Patient today presents with a complaint of right-sided nontraumatic paralumbar back pain that radiates down both legs. The patient describes it as electricity and lightening-like in nature. It does not have exacerbating or relieving factors. She denies bladder or bowel retention/incontinence and saddle anesthesia. She denies urinary symptoms. She denies headache, neck pain , chest pain, shortness of breath. The patient also indicates that she has lower extremity pain, which she feels like is electricity. She denies DVT, pulmonary embolus risk factors, with the exception of her prior DVT. -: Gradual Location: back, left, right, lower extremity Radiation: extremity Severity scale (0 -10): 3 Quality: burning, other (as per history of present illness) Consistency: intermittent Improves with: other (as per history of present illness) Worsens with: other (as per history of present illness) Associated Symptoms: other (as per history of present illness). denies: confusion, chest pain, cough, diaphoresis, fever/chills, headaches, loss of appetite, malaise, nausea/vomiting, rash, seizure, shortness of breath, syncope , weakness - Related Data Home Medications Medication Instructions Recorded Confirmed Last Taken Benztropine [Cogentin] 1 mg PO BID 12/03/16 04/06/17 04/06/17 08:00 fluPHENAZine HCL [Prolixin] 5 mg PO HS 04/06/17 04/06/17 04/05/17 Previous Rx's Medication Instructions Recorded Last Taken Type [place] Carbonate [Eskalith] 150 mg PO BID #60 capsule 12/04/16 04/06/17 08:00 Rx Ibuprofen [Motrin 800 MG tab] 800 mg PO Q8H PRN #12 tablet 11/17/17 Unknown Rx Furosemide [Lasix] 20 mg PO QDAY #20 tablet 12/03/17 Unknown Rx traMADol [Ultram 50 MG tab] 50 mg PO Q6HR PRN #12 tablet 12/03/17 Unknown Rx Ibuprofen [Motrin] 600 mg PO Q8H PRN #30 tablet 02/17/18 Unknown Rx Allergies Allergy/AdvReac Type Severity Reaction Status Date / Time acetaminophen [From Midol] Allergy Unknown Verified 11/17/17 20:35 haloperidol [From Haldol] Allergy Unknown Verified 11/17/17 20:35 haloperidol lactate Allergy Unknown Verified 11/17/17 20:35 [From Haldol] hydroxyzine HCl Allergy Unknown Verified 11/17/17 20:35 [From Vistaril] hydroxyzine pamoate Allergy Unknown Verified 11/17/17 20:35 [From Vistaril] iodine Allergy Headache Verified 11/17/17 20:35 pamabrom [From Midol] Allergy Unknown Verified 11/17/17 20:35 Sulfa (Sulfonamide Allergy Unknown Verified 11/17/17 20:35 Antibiotics) zolpidem tartrate Allergy Unknown Verified 11/17/17 20:35 [From Ambien] latex AdvReac Itching Verified 11/17/17 20:35 lorazepam [From Ativan] AdvReac Hives Verified 12/03/16 08:52 potassium AdvReac Swelling Verified 12/03/16 08:52 risperidone [From Risperdal] AdvReac Unknown Verified 12/03/16 08:52 trazodone AdvReac Swelling Verified 12/21/16 23:06 ED Review of Systems ROS: Stated complaint: LEG PAIN Other details as noted in HPI Constitutional: denies: fever Eyes: denies: vision change ENT: denies: epistaxis Respiratory: denies: cough Cardiovascular: denies: chest pain Gastrointestinal: abdominal pain Musculoskeletal: back pain Skin: denies: rash Neurological: numbness, paresthesias Psychiatric: denies: homicidal thoughts, suicidal thoughts ED Past Medical Hx - Past Medical History Previous Medical History?: Yes Hx Hypertension: Yes Hx Heart Attack/AMI: No Hx Congestive Heart Failure: Yes Hx Diabetes: Yes Hx Deep Vein Thrombosis: Yes Hx Pulmonary Embolism: No Hx Seizures: Yes Hx Psychiatric Treatment: Yes (bipolar / SCHIZOAFFECTIVE DISORDER) Hx Asthma: No Hx COPD: No Hx Tuberculosis: No Hx HIV: No Additional medical history: high cholesterol, blood clots in legs x5 yrs - Surgical History Hx Coronary Stent: No Hx Pacemaker: No Hx Internal Defibrillator: No Hx Cholecystectomy: Yes Hx Appendectomy: Yes Additional Surgical History: hysterectomy. cervical fusion - Social History Smoking Status: Never Smoker Substance Use Type: None - Medications Home Medications: Home Medications Medication Instructions Recorded Confirmed Last Taken Type Benztropine [Cogentin] 1 mg PO BID 12/03/16 04/06/17 04/06/17 08:00 History [place] Carbonate [Eskalith] 150 mg PO BID #60 capsule 12/04/16 04/06/17 08:00 Rx fluPHENAZine HCL [Prolixin] 5 mg PO HS 04/06/17 04/06/17 04/05/17 History Ibuprofen [Motrin 800 MG tab] 800 mg PO Q8H PRN #12 tablet 11/17/17 Unknown Rx Furosemide [Lasix] 20 mg PO QDAY #20 tablet 12/03/17 Unknown Rx traMADol [Ultram 50 MG tab] 50 mg PO Q6HR PRN #12 tablet 12/03/17 Unknown Rx Ibuprofen [Motrin] 600 mg PO Q8H PRN #30 tablet 02/17/18 Unknown Rx ED Physical Exam - General Limitations: No Limitations General appearance: alert, in no apparent distress - Head Head exam: Present: atraumatic, normocephalic - Eye Eye exam: Present: normal appearance, EOMI. Absent: nystagmus - ENT ENT exam: Present: normal exam, normal orophraynx, mucous membranes moist, normal external ear exam - Neck Neck exam: Present: normal inspection, full ROM - Respiratory Respiratory exam: Present: normal lung sounds bilaterally. Absent: respiratory distress - Cardiovascular Cardiovascular Exam: Present: regular rate, normal rhythm, normal heart sounds. Absent: systolic murmur, diastolic murmur, rubs, gallop - GI/Abdominal GI/Abdominal exam: Present: soft, normal bowel sounds. Absent: distended, tenderness, guarding, rebound, rigid, pulsatile mass - Extremities Exam Extremities exam: Present: normal inspection, full ROM, normal capillary refill , pedal edema, other (there is no palpable cord. There is negative Homans sign. The compartments are soft. 2+ pulses noted in the upper, lower extremities). Absent: tenderness, calf tenderness - Back Exam Back exam: Present: normal inspection, full ROM, paraspinal tenderness. Absent : vertebral tenderness - Neurological Exam Neurological exam: Present: alert, oriented X3, CN II-XII intact, normal gait, other (Extraocular movements intact. Tongue midline. No facial droop. Facial sensation intact to light touch in the V1, V2, V3 distribution bilaterally. 5 and 5 strength in 4 extremities.. Sensation is intact to light touch in 4 extremities.). Absent: motor sensory deficit (sensation is intact to light touch, proprioception in the upper and lower extremities. Downgoing plantar reflexes the bilateral lower extremities. 2+ quadriceps reflexes noted in the bilateral lower extremities. There is no clonus.) - Psychiatric Psychiatric exam: Absent: homicidal ideation, suicidal ideation - Skin Skin exam: Present: warm, dry, intact, normal color. Absent: rash ED Course Vital Signs 02/16/18 02/16/18 02/17/18 20:34 21:05 02:50 Temperature 98.3 F 98.3 F 98.3 F Pulse Rate 88 86 87 Respiratory 16 16 20 Rate Blood Pressure 107/52 107/52 103/69 O2 Sat by Pulse 99 100 99 Oximetry 02/17/18 02/17/18 02/17/18 03:03 04:00 04:07 Temperature 98.3 F Pulse Rate 87 Respiratory 20 18 18 Rate Blood Pressure 103/69 O2 Sat by Pulse 98 Oximetry ED Medical Decision Making - Lab Data Result diagrams: 02/16/18 21:15 02/16/18 21:15 Vital Signs 02/16/18 02/16/18 02/17/18 20:34 21:05 02:50 Temperature 98.3 F 98.3 F 98.3 F Pulse Rate 88 86 87 Respiratory 16 16 20 Rate Blood Pressure 107/52 107/52 103/69 O2 Sat by Pulse 99 100 99 Oximetry 02/17/18 02/17/18 02/17/18 03:03 04:00 04:07 Temperature 98.3 F Pulse Rate 87 Respiratory 20 18 18 Rate Blood Pressure 103/69 O2 Sat by Pulse 98 Oximetry Lab Results 02/16/18 02/16/18 02/17/18 Range/Units 21:15 21:15 07:06 WBC 9.1 (4.5-11.0) K/mm3 RBC 4.61 (3.65-5.03) M/mm3 Hgb 12.9 (10.1-14.3) gm/dl Hct 40.5 (30.3-42.9) % MCV 88 (79-97) fl MCH 28 (28-32) pg MCHC 32 (30-34) % RDW 15.7 H (13.2-15.2) % Plt Count 219 (140-440) K/mm3 Lymph % (Auto) 22.9 (13.4-35.0) % [place] % (Auto) 8.1 H (0.0-7.3) % Eos % (Auto) 1.2 (0.0-4.3) % Baso % (Auto) 0.4 (0.0-1.8) % Lymph # 2.1 (1.2-5.4) K/mm3 [place] # 0.7 (0.0-0.8) K/mm3 Eos # 0.1 (0.0-0.4) K/mm3 Baso # 0.0 (0.0-0.1) K/mm3 Seg Neutrophils % 67.4 (40.0-70.0) % Seg Neutrophils # 6.1 (1.8-7.7) K/mm3 Sodium 139 (137-145) mmol/L Potassium 3.9 (3.6-5.0) mmol/L Chloride 99.8 (98-107) mmol/L Carbon Dioxide 30 (22-30) mmol/L Anion Gap 13 mmol/L BUN 10 (7-17) mg/dL Creatinine 0.7 (0.7-1.2) mg/dL Estimated GFR > 60 ml/min BUN/Creatinine Ratio 14 % Glucose 93 (65-100) mg/dL Calcium 9.8 (8.4-10.2) mg/dL Total Bilirubin 0.30 (0.1-1.2) mg/dL AST 9 (5-40) units/L ALT 6 L (7-56) units/L Alkaline Phosphatase 93 (35-129) units/L Total Creatine Kinase (30-135) units/L Total Protein 7.3 (6.3-8.2) g/dL Albumin 4.3 (3.9-5) g/dL Albumin/Globulin Ratio 1.4 % Urine Color Yellow (Yellow) Urine Turbidity Hazy (Clear) Urine pH 6.0 (5.0-7.0) Ur Specific [place] 1.015 (1.003-1.030) Urine Protein <15 mg/dl (Negative) mg/dL Urine Glucose (UA) Neg (Negative) mg/dL Urine Ketones Neg (Negative) mg/dL Urine Blood Neg (Negative) Urine Nitrite Neg (Negative) Urine Bilirubin Neg (Negative) Urine Urobilinogen < 2.0 (<2.0) mg/dL Ur Leukocyte Esterase Neg (Negative) Urine WBC (Auto) 1.0 (0.0-6.0) /HPF Urine RBC (Auto) 3.0 (0.0-6.0) /HPF U Epithel Cells (Auto) 6.0 (0-13.0) /HPF Urine Bacteria (Auto) 1+ (Negative) /HPF Urine Mucus Few /HPF Urine HCG, Qual (Negative) [place] (0.0-1.2) mmol/L 02/17/18 02/17/18 02/17/18 Range/Units 07:06 07:16 07:16 WBC (4.5-11.0) K/mm3 RBC (3.65-5.03) M/mm3 Hgb (10.1-14.3) gm/dl Hct (30.3-42.9) % MCV (79-97) fl MCH (28-32) pg MCHC (30-34) % RDW (13.2-15.2) % Plt Count (140-440) K/mm3 Lymph % (Auto) (13.4-35.0) % [place] % (Auto) (0.0-7.3) % Eos % (Auto) (0.0-4.3) % Baso % (Auto) (0.0-1.8) % Lymph # (1.2-5.4) K/mm3 [place] # (0.0-0.8) K/mm3 Eos # (0.0-0.4) K/mm3 Baso # (0.0-0.1) K/mm3 Seg Neutrophils % (40.0-70.0) % Seg Neutrophils # (1.8-7.7) K/mm3 Sodium (137-145) mmol/L Potassium (3.6-5.0) mmol/L Chloride (98-107) mmol/L Carbon Dioxide (22-30) mmol/L Anion Gap mmol/L BUN (7-17) mg/dL Creatinine (0.7-1.2) mg/dL Estimated GFR ml/min BUN/Creatinine Ratio % Glucose (65-100) mg/dL Calcium (8.4-10.2) mg/dL Total Bilirubin (0.1-1.2) mg/dL AST (5-40) units/L ALT (7-56) units/L Alkaline Phosphatase (35-129) units/L Total Creatine Kinase 57 (30-135) units/L Total Protein (6.3-8.2) g/dL Albumin (3.9-5) g/dL Albumin/Globulin Ratio % Urine Color (Yellow) Urine Turbidity (Clear) Urine pH (5.0-7.0) Ur Specific [place] (1.003-1.030) Urine Protein (Negative) mg/dL Urine Glucose (UA) (Negative) mg/dL Urine Ketones (Negative) mg/dL Urine Blood (Negative) Urine Nitrite (Negative) Urine Bilirubin (Negative) Urine Urobilinogen (<2.0) mg/dL Ur Leukocyte Esterase (Negative) Urine WBC (Auto) (0.0-6.0) /HPF Urine RBC (Auto) (0.0-6.0) /HPF U Epithel Cells (Auto) (0-13.0) /HPF Urine Bacteria (Auto) (Negative) /HPF Urine Mucus /HPF Urine HCG, Qual Negative (Negative) [place] 0.4 (0.0-1.2) mmol/L - Radiology Data Radiology results: [facility] : 1975 [facility]# [id number] 02/17/18 09:07 - Radiology Dept. [facility]: [id number] : 1975 Patient Age: 42 VASCULAR LAB.PRELIMINARY REPORT. BLE VENOUS DUPLEX DONE BEDSIDE. TECHNICALLY LIMITED DUE TO HABITUS. CHRONIC DVT IN THE LT. MID [facility]NELAS) INFORMED AT 0855. Initialized on 02/17/18 09:07 - END OF NOTE - Medical Decision Making Differential diagnosis, including but not limited to: Radiculopathy, AAA, chronic DVT Assessment and plan: 42-year-old female with probable lumbar radiculopathy. She is afebrile with reassuring vital signs, does not have a physical exam or history to suggest epidural compression syndrome. A noncontrast CT scan of the abdomen and pelvis was negative. The patient's laboratory studies were otherwise unremarkable, she declined ketorolac but was given pain medication, observed in the ER for hours without clinical decompensation, the patient is medically stable to be discharged at this time, return precautions have been reviewed. Critical care attestation.: If time is entered above; I have spent that time in minutes in the direct care of this critically ill patient, excluding procedure time. ED Disposition Clinical Impression: Chronic deep vein thrombosis (DVT) of lower extremity, Back pain Disposition: TO HOME OR SELFCARE Is pt being admited?: No Does the pt Need Aspirin: No Condition: Good Instructions: Lumbar Radiculopathy (ED) Additional Instructions: Rest, and avoid heavy lifting. Avoid strenuous physical activity. Take pain medication as directed. Follow up with a primary care doctor within the next 2- 3 weeks. Return to the ER right away with new pain, worsened pain, migration of pain, fevers, chills, lethargy, irritability, vomiting, change in mental status, confusion, inability to tolerate liquid feeds, also return to the ER right away for weakness, numbness, unsteady gait, bladder or bowel retention or incontinence. Referrals: PRIMARY CAREMD [Primary Care Provider] - 3-5 Days KHUSHI ROJAS MD [Staff Physician] - 3-5 Days [facility] [Provider Group] - 3-5 Days
[2018-02-17 07:19] LABS: Bacteria,Urine 1+ /HPF (Negative); Bilirubin,Urine NEG (Negative); Blood,Urine NEG (Negative); Color,Urine Yellow (Yellow); Mucus,Urine FEW /HPF; Protein,Urine <15 mg/dL mg/dL (Negative); Urobilinogen,Urine < 2.0 mg/dL (<2.0)
[2018-02-17 07:24] LABS: HCG Qualitative,Urine Negative (Negative)
[2018-02-17] MEDS ORDERED: TORADOL IM ONE (08:05)
--- NOTE | 2018-02-17 08:17 | Cat Scan Report ---
CT ABDOMEN PELVIS WITHOUT CONTRAST: HISTORY: Abdominal pain, radiculopathy. COMPARISON: 07/07/17. TECHNIQUE: Helical CT in 1.25mm intervals without IV contrast. Sagittal and coronal reconstructions. FINDINGS: Lung bases: Normal. Liver: Normal. Biliary system: Cholecystectomy. No biliary dilatation. Pancreas: Normal. Spleen: Normal. Kidneys/ureters/bladder: Normal. Adrenal glands: Normal. Aorta: Normal. Intestines: Unremarkable given no oral contrast was administered. Appendix: Appendectomy changes are suspected, correlate with the patient's history. Pelvic viscera: Hysterectomy. Ascites: None. Adenopathy: None. Musculoskeletal: Normal. IMPRESSION: No acute process is identified in the abdomen or pelvis. Surgical changes as described. No significant change since 07/07/17.
[2018-02-17 10:54] VITALS: BP 110/78
--- NOTE | 2018-02-22 15:05 | Vascular Lab Report ---
LOWER EXTREMITY VENOUS DUPLEX: REASON FOR EXAM: Pain and swelling of the lower extremities. COMMENTS ON THE RIGHT: All veins visualized are freely compressible without evidence of internal echogenicity. Flow is spontaneous and phasic throughout. COMMENTS ON THE LEFT: Partially occluding chronic thrombus is seen in the mid superficial femoral vein. The remaining veins visualized are freely compressible without evidence of internal echogenicity. Spontaneous and phasic flow is present proximally. IMPRESSION: Chronic, partially occluding thrombus seen in the mid left superficial femoral vein. No evidence of acute deep venous thrombosis in either lower extremity.
== END 2018-02-17 10:54 | disposition home or self-care (01) ==
LOC: ED 20:20
DX: I82.503 Chronic embolism and thrombosis of unspecified deep veins of lower extremity, bilateral (principal); M54.5 Low back pain; I50.9 Heart failure, unspecified; I11.0 Hypertensive heart disease with heart failure; E11.9 Type 2 diabetes mellitus without complications; E78.00 Pure hypercholesterolemia, unspecified; Z90.49 Acquired absence of other specified parts of digestive tract; Z90.710 Acquired absence of both cervix and uterus; Z88.6 Allergy status to analgesic agent; Z88.8 Allergy status to other drugs, medicaments and biological substances
CPT/HCPCS: 36415; 74176; 80053; 80178; 81001; 81025; 82550; 85025; 93970; 96372; 99284; J1885

== ENCOUNTER 2018-03-29 19:19 | Emergency (ER) | payer MEDICARE ==
[2018-03-29 19:59] LABS: Basophils # (Auto) 0.1 K/mm3 (0.0-0.1); Basophils % (Auto) 0.7 % (0.0-1.8); Eosinophils # (Auto) 0.2 K/mm3 (0.0-0.4); Eosinophils % (Auto) 1.7 % (0.0-4.3); Hematocrit 38.7 % (30.3-42.9); Hemoglobin 12.9 gm/dl (10.1-14.3); Lymphocytes # (Auto) 1.9 K/mm3 (1.2-5.4); Mean Corpuscular HGB Conc 33 % (30-34); Mean Corpuscular Hemoglobin 29 pg (28-32); Mean Corpuscular Volume 88 fl (79-97); Monocytes # (Auto) 0.7 K/mm3 (0.0-0.8); Monocytes % (Auto) 8.5 % (0.0-7.3); Red Blood Count 4.43 M/mm3 (3.65-5.03); Red Cell Distribution Width 15.5 % (13.2-15.2)
[2018-03-29 20:03] LABS: Platelet Count 194 K/mm3 (140-440)
[2018-03-29 20:15] LABS: BUN/Creatinine Ratio 10; Blood Urea Nitrogen 6 mg/dL (7-17); Calcium 9.9 mg/dL (8.4-10.2); Hemolysis Index 25
--- NOTE | 2018-03-29 21:14 | Emergency Department Report ---
ED General Adult HPI - General Chief complaint: Extremity Problem,Nontraumatic Stated complaint: BILATERAL LEG EDEMA Time Seen by Provider: 03/29/18 20:59 Source: patient Mode of arrival: Ambulatory Limitations: No Limitations - History of Present Illness Initial comments: Ms. Michele is a 42-year-old female with history of DVT, bipolar disorder GERD. She has several months of bilateral leg pain and swelling. She is followed by PCP and a vascular surgeon. She is treated with compression stockings. She is concerned for persistent pain in both legs. She is concerned that she has extension of her known DVT. I reviewed electronic medical. 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 No acute DVT noted at that time. She is taking anticoagulation. She desires Lasix. She says that her doctors are not "doing anything". - Related Data Home Medications Medication Instructions Recorded Confirmed Last Taken Benztropine [Cogentin] 1 mg PO BID 12/03/16 04/06/17 04/06/17 08:00 fluPHENAZine HCL [Prolixin] 5 mg PO HS 04/06/17 04/06/17 04/05/17 Previous Rx's Medication Instructions Recorded Last Taken Type [place] Carbonate [Eskalith] 150 mg PO BID #60 capsule 12/04/16 04/06/17 08:00 Rx Ibuprofen [Motrin 800 MG tab] 800 mg PO Q8H PRN #12 tablet 11/17/17 Unknown Rx Furosemide [Lasix] 20 mg PO QDAY #20 tablet 12/03/17 Unknown Rx traMADol [Ultram 50 MG tab] 50 mg PO Q6HR PRN #12 tablet 12/03/17 Unknown Rx Ibuprofen [Motrin] 600 mg PO Q8H PRN #30 tablet 02/17/18 Unknown Rx Allergies Allergy/AdvReac Type Severity Reaction Status Date / Time acetaminophen [From Midol] Allergy Unknown Verified 11/17/17 20:35 haloperidol [From Haldol] Allergy Unknown Verified 11/17/17 20:35 haloperidol lactate Allergy Unknown Verified 11/17/17 20:35 [From Haldol] hydroxyzine HCl Allergy Unknown Verified 11/17/17 20:35 [From Vistaril] hydroxyzine pamoate Allergy Unknown Verified 11/17/17 20:35 [From Vistaril] iodine Allergy Headache Verified 11/17/17 20:35 pamabrom [From Midol] Allergy Unknown Verified 11/17/17 20:35 Sulfa (Sulfonamide Allergy Unknown Verified 11/17/17 20:35 Antibiotics) zolpidem tartrate Allergy Unknown Verified 11/17/17 20:35 [From Ambien] latex AdvReac Itching Verified 11/17/17 20:35 lorazepam [From Ativan] AdvReac Hives Verified 12/03/16 08:52 potassium AdvReac Swelling Verified 12/03/16 08:52 risperidone [From Risperdal] AdvReac Unknown Verified 12/03/16 08:52 trazodone AdvReac Swelling Verified 12/21/16 23:06 ED Review of Systems ROS: Stated complaint: BILATERAL LEG EDEMA Other details as noted in HPI Comment: All other systems reviewed and negative Constitutional: denies: fever, malaise Respiratory: denies: cough Cardiovascular: denies: chest pain Gastrointestinal: denies: abdominal pain ED Past Medical Hx - Past Medical History Previous Medical History?: Yes Hx Hypertension: Yes Hx Heart Attack/AMI: No Hx Congestive Heart Failure: Yes Hx Diabetes: Yes Hx Deep Vein Thrombosis: Yes Hx Pulmonary Embolism: No Hx Seizures: Yes Hx Psychiatric Treatment: Yes (bipolar / SCHIZOAFFECTIVE DISORDER) Hx Asthma: No Hx COPD: No Hx Tuberculosis: No Hx HIV: No Additional medical history: high cholesterol, blood clots in legs x6-7 yrs - Surgical History Past Surgical History?: Yes Hx Coronary Stent: No Hx Pacemaker: No Hx Internal Defibrillator: No Hx Cholecystectomy: Yes Hx Appendectomy: Yes Additional Surgical History: hysterectomy. cervical fusion - Social History Smoking Status: Never Smoker Substance Use Type: None - Medications Home Medications: Home Medications Medication Instructions Recorded Confirmed Last Taken Type Benztropine [Cogentin] 1 mg PO BID 12/03/16 04/06/17 04/06/17 08:00 History [place] Carbonate [Eskalith] 150 mg PO BID #60 capsule 12/04/16 04/06/17 08:00 Rx fluPHENAZine HCL [Prolixin] 5 mg PO HS 04/06/17 04/06/17 04/05/17 History Ibuprofen [Motrin 800 MG tab] 800 mg PO Q8H PRN #12 tablet 11/17/17 Unknown Rx Furosemide [Lasix] 20 mg PO QDAY #20 tablet 12/03/17 Unknown Rx traMADol [Ultram 50 MG tab] 50 mg PO Q6HR PRN #12 tablet 12/03/17 Unknown Rx Ibuprofen [Motrin] 600 mg PO Q8H PRN #30 tablet 02/17/18 Unknown Rx ED Physical Exam - General Limitations: No Limitations General appearance: alert, in no apparent distress - Head Head exam: Present: atraumatic, normocephalic - Eye Eye exam: Present: normal appearance - ENT ENT exam: Present: mucous membranes moist - Neck Neck exam: Present: normal inspection. Absent: tenderness, meningismus - Respiratory Respiratory exam: Present: normal lung sounds bilaterally. Absent: respiratory distress, wheezes, rales, rhonchi - Cardiovascular Cardiovascular Exam: Present: regular rate, normal rhythm, normal heart sounds. Absent: bradycardia, tachycardia, systolic murmur, diastolic murmur, rubs, gallop - GI/Abdominal GI/Abdominal exam: Present: soft, normal bowel sounds. Absent: distended, tenderness, guarding, rebound - Extremities Exam Extremities exam: Present: normal inspection, full ROM, other (intact DP pulse bilaterally ). Absent: tenderness, pedal edema, joint swelling - Back Exam Back exam: Present: normal inspection - Neurological Exam Neurological exam: Present: alert, oriented X3 - Psychiatric Psychiatric exam: Present: normal affect, normal mood - Skin Skin exam: Present: warm, dry, intact, normal color. Absent: rash ED Course Vital Signs 03/29/18 19:28 Temperature 98.7 F Pulse Rate 76 Blood Pressure 133/91 O2 Sat by Pulse 100 Oximetry ED Medical Decision Making - Lab Data Result diagrams: 03/29/18 19:42 03/29/18 19:42 Laboratory Results - last 24 hr 03/29/18 03/29/18 03/29/18 19:42 19:42 19:42 WBC 8.8 RBC 4.43 Hgb 12.9 Hct 38.7 MCV 88 MCH 29 MCHC 33 RDW 15.5 H Plt Count 194 Lymph % (Auto) 22.0 [place] % (Auto) 8.5 H Eos % (Auto) 1.7 Baso % (Auto) 0.7 Lymph # 1.9 [place] # 0.7 Eos # 0.2 Baso # 0.1 Seg Neutrophils % 67.1 Seg Neutrophils # 5.9 Sodium 137 Potassium 4.0 Chloride 98.5 Carbon Dioxide 23 Anion Gap 20 BUN 6 L Creatinine 0.6 L Estimated GFR > 60 BUN/Creatinine Ratio 10 Glucose 92 Calcium 9.9 NT-Pro-B Natriuret Pep HCG, Qual Negative 03/29/18 19:42 WBC RBC Hgb Hct MCV MCH MCHC RDW Plt Count Lymph % (Auto) [place] % (Auto) Eos % (Auto) Baso % (Auto) Lymph # [place] # Eos # Baso # Seg Neutrophils % Seg Neutrophils # Sodium Potassium Chloride Carbon Dioxide Anion Gap BUN Creatinine Estimated GFR BUN/Creatinine Ratio Glucose Calcium NT-Pro-B Natriuret Pep 14.90 HCG, Qual Vital Signs - 24 hr 03/29/18 19:28 Temperature 98.7 F Pulse Rate 76 Blood Pressure 133/91 O2 Sat by Pulse 100 Oximetry - Medical Decision Making Ms. Michele bilateral leg pain and swelling which is not new. These symptoms have been addressed in the ED and by her outpatient physicians. I do not appreciate any signs of edema, infection or vascular compromise. I have given her one dose of Lasix according to her wishes. Critical care attestation.: If time is entered above; I have spent that time in minutes in the direct care of this critically ill patient, excluding procedure time. ED Disposition Clinical Impression: Leg pain, bilateral, Chronic deep vein thrombosis (DVT) of lower extremity Disposition: -01 TO HOME OR SELFCARE Is pt being admited?: No Does the pt Need Aspirin: No Condition: Stable Instructions: Leg Edema (ED) Referrals: PRIMARY CARE, [Primary Care Provider] - 3-5 Days Time of Disposition: 21:14
[2018-03-29] MEDS ORDERED: LASIX PO ONE (21:20)
[2018-03-29 21:27] VITALS: BP 137/75
== END 2018-03-29 21:37 | disposition home or self-care (01) ==
LOC: ED 19:19
DX: I82.503 Chronic embolism and thrombosis of unspecified deep veins of lower extremity, bilateral (principal); I11.0 Hypertensive heart disease with heart failure; I50.9 Heart failure, unspecified; E11.9 Type 2 diabetes mellitus without complications; E78.00 Pure hypercholesterolemia, unspecified; K21.9 Gastro-esophageal reflux disease without esophagitis; Z90.49 Acquired absence of other specified parts of digestive tract; Z90.710 Acquired absence of both cervix and uterus; Z88.6 Allergy status to analgesic agent; Z88.2 Allergy status to sulfonamides; Z88.8 Allergy status to other drugs, medicaments and biological substances
CPT/HCPCS: 36415; 80048; 83880; 84703; 85025; 99283

== ENCOUNTER 2018-03-30 17:18 | Emergency (ER) | payer MEDICARE ==
[2018-03-30 18:02] LABS: Basophils % (Auto) 0.6 % (0.0-1.8); Eosinophils # (Auto) 0.1 K/mm3 (0.0-0.4); Eosinophils % (Auto) 1.3 % (0.0-4.3); Hematocrit 39.4 % (30.3-42.9); Hemoglobin 13.4 gm/dl (10.1-14.3); Lymphocytes # (Auto) 1.9 K/mm3 (1.2-5.4); Lymphocytes % (Auto) 22.9 % (13.4-35.0); Mean Corpuscular HGB Conc 34 % (30-34); Mean Corpuscular Hemoglobin 29 pg (28-32); Mean Corpuscular Volume 87 fl (79-97); Monocytes # (Auto) 0.5 K/mm3 (0.0-0.8); Monocytes % (Auto) 6.2 % (0.0-7.3); Platelet Count 236 K/mm3 (140-440); Red Blood Count 4.54 M/mm3 (3.65-5.03); Red Cell Distribution Width 15.6 % (13.2-15.2)
[2018-03-30 18:18] LABS: BUN/Creatinine Ratio 15; Blood Urea Nitrogen 9 mg/dL (7-17); Calcium 10.6 mg/dL (8.4-10.2); Hemolysis Index 6
[2018-03-30 23:23] VITALS: BP 127/79
[2018-03-30] MEDS ORDERED: MOTRIN ONE (23:24)
--- NOTE | 2018-03-30 23:26 | Emergency Department Report ---
ED Extremity Problem HPI - General Chief complaint: Extremity Problem,Nontraumatic Stated complaint: TIGHTENING IN LEGS Time Seen by Provider: 03/30/18 22:03 Source: patient Mode of arrival: Ambulatory Limitations: No Limitations - History of Present Illness Initial comments: Patient refuses the ER for bilateral leg swelling/tightness. She was seen in the ER yesterday for this issue and given a one-time dose of oral Lasix. Patient has history of chronic DVTs in both legs. She is currently being managed by vascular surgeon. Denies chest pain or shortness of breath. Patient says that she used to be regularly on Lasix. She cannot follow up with her vascular surgeon until April and is requesting more Lasix until then. She is finding it hard to walk because her legs are so big. Severity scale (0 -10): 10 - Related Data Home Medications Medication Instructions Recorded Confirmed Last Taken Benztropine [Cogentin] 1 mg PO BID 12/03/16 04/06/17 04/06/17 08:00 fluPHENAZine HCL [Prolixin] 5 mg PO HS 04/06/17 04/06/17 04/05/17 Previous Rx's Medication Instructions Recorded Last Taken Type [place] Carbonate [Eskalith] 150 mg PO BID #60 capsule 12/04/16 04/06/17 08:00 Rx Ibuprofen [Motrin 800 MG tab] 800 mg PO Q8H PRN #12 tablet 11/17/17 Unknown Rx Furosemide [Lasix] 20 mg PO QDAY #20 tablet 12/03/17 Unknown Rx traMADol [Ultram 50 MG tab] 50 mg PO Q6HR PRN #12 tablet 12/03/17 Unknown Rx Ibuprofen [Motrin] 600 mg PO Q8H PRN #30 tablet 02/17/18 Unknown Rx Furosemide [Lasix] 20 mg PO DAILY #21 tablet 03/30/18 Unknown Rx Allergies Allergy/AdvReac Type Severity Reaction Status Date / Time acetaminophen [From Midol] Allergy Unknown Verified 11/17/17 20:35 haloperidol [From Haldol] Allergy Unknown Verified 11/17/17 20:35 haloperidol lactate Allergy Unknown Verified 11/17/17 20:35 [From Haldol] hydroxyzine HCl Allergy Unknown Verified 11/17/17 20:35 [From Vistaril] hydroxyzine pamoate Allergy Unknown Verified 11/17/17 20:35 [From Vistaril] iodine Allergy Headache Verified 11/17/17 20:35 pamabrom [From Midol] Allergy Unknown Verified 11/17/17 20:35 Sulfa (Sulfonamide Allergy Unknown Verified 11/17/17 20:35 Antibiotics) zolpidem tartrate Allergy Unknown Verified 11/17/17 20:35 [From Ambien] latex AdvReac Itching Verified 11/17/17 20:35 lorazepam [From Ativan] AdvReac Hives Verified 12/03/16 08:52 potassium AdvReac Swelling Verified 12/03/16 08:52 risperidone [From Risperdal] AdvReac Unknown Verified 12/03/16 08:52 trazodone AdvReac Swelling Verified 12/21/16 23:06 ED Review of Systems ROS: Stated complaint: TIGHTENING IN LEGS Other details as noted in HPI ED Past Medical Hx - Past Medical History Hx Hypertension: Yes Hx Heart Attack/AMI: No Hx Congestive Heart Failure: Yes Hx Diabetes: Yes Hx Deep Vein Thrombosis: Yes Hx Pulmonary Embolism: No Hx Seizures: Yes Hx Psychiatric Treatment: Yes (bipolar / SCHIZOAFFECTIVE DISORDER) Hx Asthma: No Hx COPD: No Hx Tuberculosis: No Hx HIV: No Additional medical history: high cholesterol, blood clots in legs x6-7 yrs - Surgical History Hx Coronary Stent: No Hx Pacemaker: No Hx Internal Defibrillator: No Hx Cholecystectomy: Yes Hx Appendectomy: Yes Additional Surgical History: hysterectomy. cervical fusion - Social History Smoking Status: Never Smoker Substance Use Type: None - Medications Home Medications: Home Medications Medication Instructions Recorded Confirmed Last Taken Type Benztropine [Cogentin] 1 mg PO BID 12/03/16 04/06/17 04/06/17 08:00 History [place] Carbonate [Eskalith] 150 mg PO BID #60 capsule 12/04/16 04/06/17 08:00 Rx fluPHENAZine HCL [Prolixin] 5 mg PO HS 04/06/17 04/06/17 04/05/17 History Ibuprofen [Motrin 800 MG tab] 800 mg PO Q8H PRN #12 tablet 11/17/17 Unknown Rx Furosemide [Lasix] 20 mg PO QDAY #20 tablet 12/03/17 Unknown Rx traMADol [Ultram 50 MG tab] 50 mg PO Q6HR PRN #12 tablet 12/03/17 Unknown Rx Ibuprofen [Motrin] 600 mg PO Q8H PRN #30 tablet 02/17/18 Unknown Rx Furosemide [Lasix] 20 mg PO DAILY #21 tablet 03/30/18 Unknown Rx ED Physical Exam - General Limitations: No Limitations General appearance: alert, in no apparent distress, other (morbid obesity) - Head Head exam: Present: atraumatic, normocephalic - Eye Eye exam: Present: normal appearance - ENT ENT exam: Present: mucous membranes moist - Neck Neck exam: Present: normal inspection - Respiratory Respiratory exam: Present: normal lung sounds bilaterally. Absent: respiratory distress - Cardiovascular Cardiovascular Exam: Present: regular rate, normal rhythm. Absent: systolic murmur, diastolic murmur, rubs, gallop - GI/Abdominal GI/Abdominal exam: Present: soft, normal bowel sounds. Absent: tenderness - Extremities Exam Extremities exam: Present: normal inspection, pedal edema (1+ bilateral pedal edema) - Back Exam Back exam: Present: normal inspection - Neurological Exam Neurological exam: Present: alert, oriented X3 - Psychiatric Psychiatric exam: Present: normal affect, normal mood - Skin Skin exam: Present: warm, dry, intact, normal color. Absent: rash ED Course Vital Signs 03/30/18 03/30/18 17:33 21:15 Temperature 98.6 F 98 F Pulse Rate 97 H 85 Respiratory 20 15 Rate Blood Pressure 105/68 Blood Pressure 131/81 [Left] O2 Sat by Pulse 99 99 Oximetry ED Medical Decision Making - Lab Data Result diagrams: 03/30/18 17:48 03/30/18 17:48 - Medical Decision Making 42-year-old female with past medical history of bilateral chronic DVTs, chronic leg pain, diabetes, morbid obesity that presents to the ER for acute on chronic bilateral leg pain/swelling. Patient is well-appearing. Vital signs are stable. 1+ pedal edema noted on exam. No evidence chest pain or respiratory distress. I suspect that the patient's chronic leg pain and difficulty walking most likely has more to do with her morbid obesity then the level fluid overload in her legs. Patient will be started on a daily 20 mg oral Lasix and has been instructed to follow-up with the [facility] in 3 days for recheck of her electrolytes. I told the patient that she will have to follow up with their vascular surgeon for further refills of this medication. - Differential Diagnosis DVT, PE, cellulitis, claudication, CHF, sciatica Critical care attestation.: If time is entered above; I have spent that time in minutes in the direct care of this critically ill patient, excluding procedure time. ED Disposition Clinical Impression: Chronic deep vein thrombosis (DVT) of lower extremity, Leg pain, bilateral Disposition: DC- TO HOME OR SELFCARE Is pt being admited?: No Does the pt Need Aspirin: No Condition: Stable Additional Instructions: Please follow up with the [facility] in 3-5 days to have her electrolytes rechecked since you have just started taking Lasix. For the MiraLAX, makes 7 capfuls/Packets in 1 L of water and drink the bottle on day 1. Then mix one capful/packet in 1 bottle water and do this daily for the next 3 weeks. The MiraLAX can be purchased [id number]. Prescriptions: Furosemide [Lasix] 20 mg PO DAILY #21 tablet Referrals: PRIMARY CARE, [Primary Care Provider] - 3-5 Days
[2018-03-30] MEDS: MOTRIN PO ONE (23:28)
== END 2018-03-30 23:44 | disposition home or self-care (01) ==
LOC: ED 17:18
DX: I82.503 Chronic embolism and thrombosis of unspecified deep veins of lower extremity, bilateral (principal); I10 Essential (primary) hypertension; I50.9 Heart failure, unspecified; E11.9 Type 2 diabetes mellitus without complications; F31.9 Bipolar disorder, unspecified; F20.9 Schizophrenia, unspecified; E78.00 Pure hypercholesterolemia, unspecified
CPT/HCPCS: 36415; 80048; 82962; 85025

== ENCOUNTER 2018-06-04 11:50 | Emergency (ER) | payer MEDICARE ==
[2018-06-04] MEDS ORDERED: NACL 0.9% 1000 ML 1,000 ML IV ONE (12:25)
[2018-06-04 12:49] LABS: Basophils # (Auto) 0.1 K/mm3 (0.0-0.1); Basophils % (Auto) 1.2 % (0.0-1.8); Eosinophils # (Auto) 0.1 K/mm3 (0.0-0.4); Eosinophils % (Auto) 0.7 % (0.0-4.3); Hematocrit 39.4 % (30.3-42.9); Hemoglobin 12.8 gm/dl (10.1-14.3); Lymphocytes # (Auto) 1.5 K/mm3 (1.2-5.4); Lymphocytes % (Auto) 17.6 % (13.4-35.0); Mean Corpuscular HGB Conc 33 % (30-34); Mean Corpuscular Hemoglobin 28 pg (28-32); Mean Corpuscular Volume 87 fl (79-97); Monocytes # (Auto) 0.6 K/mm3 (0.0-0.8); Monocytes % (Auto) 7.5 % (0.0-7.3); Platelet Count 251 K/mm3 (140-440); Red Blood Count 4.54 M/mm3 (3.65-5.03); Red Cell Distribution Width 15.1 % (13.2-15.2)
[2018-06-04 13:11] LABS: Alanine Aminotransferase 9 units/L (7-56); Albumin 4.5 g/dL (3.9-5); BUN/Creatinine Ratio 9; Blood Urea Nitrogen 6 mg/dL (7-17); Calcium 10.3 mg/dL (8.4-10.2); Hemolysis Index 2
[2018-06-04 16:39] LABS: Bacteria,Urine 1+ /HPF (Negative); Bilirubin,Urine NEG (Negative); Blood,Urine NEG (Negative); Color,Urine Yellow (Yellow); HCG Qualitative,Urine Negative (Negative); Mucus,Urine FEW /HPF; Protein,Urine <15 mg/dL mg/dL (Negative); Urobilinogen,Urine < 2.0 mg/dL (<2.0); WBC,Urine < 1.0 /HPF (0.0-6.0)
--- NOTE | 2018-06-04 16:48 | Emergency Department Report ---
- General Chief Complaint: Abdominal Pain Stated Complaint: ABD PAIN/VOMITING Time Seen by Provider: 06/04/18 15:50 Source: patient Mode of arrival: Ambulatory Limitations: Language Barrier - History of Present Illness Initial Comments: 42-year-old female reports abdominal pain 1 month and also upper respiratory symptoms 1 week. Patient reports nonproductive cough, sore throat, sneezing, runny nose, headache. Denies fever. Patient reports intermittent diffuse abdominal pain 1 month. Patient states she was seen recently in the ER this abdominal pain and had a CT done. Patient states abdominal pain has actually improved from last visit. Denies diarrhea or vomiting. MD Complaint: cough, sore throat, rhinorrhea -: week(s) (1) Severity: mild Improves With: nothing Worsens With: nothing Context: other (unknown) Associated Symptoms: headache, rhinorrhea, sore throat, cough, abdominal pain. denies: fever, chills, chest pain, shortness of breath, nausea, vomiting, diarrhea - Related Data Home Medications Medication Instructions Recorded Confirmed Last Taken Benztropine [Cogentin] 1 mg PO BID 12/03/16 04/06/17 04/06/17 08:00 fluPHENAZine HCl [Prolixin] 5 mg PO HS 04/06/17 04/06/17 04/05/17 Previous Rx's Medication Instructions Recorded Last Taken Type [place] Carbonate [Eskalith] 150 mg PO BID #60 capsule 12/04/16 04/06/17 08:00 Rx Ibuprofen [Motrin 800 MG tab] 800 mg PO Q8H PRN #12 tablet 11/17/17 Unknown Rx Furosemide [Lasix] 20 mg PO QDAY #20 tablet 12/03/17 Unknown Rx traMADol [Ultram 50 MG tab] 50 mg PO Q6HR PRN #12 tablet 12/03/17 Unknown Rx Ibuprofen [Motrin] 600 mg PO Q8H PRN #30 tablet 02/17/18 Unknown Rx Furosemide [Lasix] 20 mg PO DAILY #21 tablet 03/30/18 Unknown Rx Ciprofloxacin HCl [Cipro] 500 mg PO BID 10 Days #20 tablet 05/25/18 Unknown Rx Benzonatate [Tessalon Perles] 100 mg PO Q8HR PRN #20 capsule 06/04/18 Unknown Rx Fluticasone [Flonase] 1 spray NS QDAY #1 bottle 06/04/18 Unknown Rx Allergies Allergy/AdvReac Type Severity Reaction Status Date / Time acetaminophen [From Midol] Allergy Unknown Verified 11/17/17 20:35 haloperidol [From Haldol] Allergy Unknown Verified 11/17/17 20:35 haloperidol lactate Allergy Unknown Verified 11/17/17 20:35 [From Haldol] hydroxyzine HCl Allergy Unknown Verified 11/17/17 20:35 [From Vistaril] hydroxyzine pamoate Allergy Unknown Verified 11/17/17 20:35 [From Vistaril] iodine Allergy Headache Verified 11/17/17 20:35 pamabrom [From Midol] Allergy Unknown Verified 11/17/17 20:35 Sulfa (Sulfonamide Allergy Unknown Verified 11/17/17 20:35 Antibiotics) zolpidem tartrate Allergy Unknown Verified 11/17/17 20:35 [From Ambien] latex AdvReac Itching Verified 11/17/17 20:35 lorazepam [From Ativan] AdvReac Hives Verified 12/03/16 08:52 potassium AdvReac Swelling Verified 12/03/16 08:52 risperidone [From Risperdal] AdvReac Unknown Verified 12/03/16 08:52 trazodone AdvReac Swelling Verified 12/21/16 23:06 ED Review of Systems ROS: Stated complaint: ABD PAIN/VOMITING Other details as noted in HPI Comment: All other systems reviewed and negative Constitutional: denies: chills, fever Respiratory: cough Cardiovascular: denies: chest pain Gastrointestinal: abdominal pain. denies: nausea, vomiting Neurological: headache ED Past Medical Hx - Past Medical History Hx Hypertension: Yes Hx Heart Attack/AMI: No Hx Congestive Heart Failure: Yes Hx Diabetes: Yes Hx Deep Vein Thrombosis: Yes Hx Pulmonary Embolism: No Hx Seizures: Yes Hx Psychiatric Treatment: Yes (bipolar / SCHIZOAFFECTIVE DISORDER) Hx Asthma: No Hx COPD: No Hx Tuberculosis: No Hx HIV: No Additional medical history: high cholesterol, blood clots in legs x6-7 yrs - Surgical History Hx Coronary Stent: No Hx Pacemaker: No Hx Internal Defibrillator: No Hx Cholecystectomy: Yes Hx Appendectomy: Yes Additional Surgical History: hysterectomy. cervical fusion - Social History Smoking Status: Never Smoker Substance Use Type: None - Medications Home Medications: Home Medications Medication Instructions Recorded Confirmed Last Taken Type Benztropine [Cogentin] 1 mg PO BID 12/03/16 04/06/17 04/06/17 08:00 History [place] Carbonate [Eskalith] 150 mg PO BID #60 capsule 12/04/16 04/06/17 08:00 Rx fluPHENAZine HCl [Prolixin] 5 mg PO HS 04/06/17 04/06/17 04/05/17 History Ibuprofen [Motrin 800 MG tab] 800 mg PO Q8H PRN #12 tablet 11/17/17 Unknown Rx Furosemide [Lasix] 20 mg PO QDAY #20 tablet 12/03/17 Unknown Rx traMADol [Ultram 50 MG tab] 50 mg PO Q6HR PRN #12 tablet 12/03/17 Unknown Rx Ibuprofen [Motrin] 600 mg PO Q8H PRN #30 tablet 02/17/18 Unknown Rx Furosemide [Lasix] 20 mg PO DAILY #21 tablet 03/30/18 Unknown Rx Ciprofloxacin HCl [Cipro] 500 mg PO BID 10 Days #20 tablet 05/25/18 Unknown Rx Benzonatate [Tessalon Perles] 100 mg PO Q8HR PRN #20 capsule 06/04/18 Unknown Rx Fluticasone [Flonase] 1 spray NS QDAY #1 bottle 06/04/18 Unknown Rx ED Physical Exam - General Limitations: Language Barrier General appearance: alert, in no apparent distress, obese - Head Head exam: Present: atraumatic, normocephalic - Eye Eye exam: Present: normal appearance - ENT ENT exam: Present: normal orophraynx, mucous membranes moist, other (clear drainage from nares present; actively sneezing during exam) - Neck Neck exam: Present: normal inspection, full ROM. Absent: meningismus - Respiratory Respiratory exam: Present: normal lung sounds bilaterally. Absent: respiratory distress, wheezes - Cardiovascular Cardiovascular Exam: Present: regular rate, tachycardia - GI/Abdominal GI/Abdominal exam: Present: soft. Absent: distended, tenderness - Extremities Exam Extremities exam: Present: normal inspection - Neurological Exam Neurological exam: Present: alert, oriented X3 - Psychiatric Psychiatric exam: Present: normal affect, normal mood - Skin Skin exam: Present: warm, dry, intact, normal color. Absent: rash ED Course Vital Signs 06/04/18 12:18 Temperature 99.1 F Pulse Rate 115 H Respiratory 18 Rate Blood Pressure 122/68 O2 Sat by Pulse 98 Oximetry ED Medical Decision Making - Lab Data Result diagrams: 06/04/18 12:29 06/04/18 12:29 - Medical Decision Making 42-year-old female presents to ED with upper respiratory infection. Also reports abdominal pain 1 month. Labs and urine unremarkable. Patient seen for same abdominal pain 10 days ago and had normal CT scan. Patient states abdominal pain has improved since last visit. Exam unremarkable, lungs clear abdomen nontender. Pt is afebrile, appears nontoxic. Will prescribe medications for URI, advised outpatient follow-up. Pt given return precautions - Differential Diagnosis chronic abd pain, URI, bronchitis Critical care attestation.: If time is entered above; I have spent that time in minutes in the direct care of this critically ill patient, excluding procedure time. ED Disposition Clinical Impression: Upper respiratory infection, Abdominal pain Disposition: - TO HOME OR SELFCARE Is pt being admited?: No Condition: Stable Instructions: Upper Respiratory Infection (ED), Abdominal Pain (ED) Prescriptions: Benzonatate [Tessalon Perles] 100 mg PO Q8HR PRN #20 capsule PRN Reason: Cough Fluticasone [Flonase] 1 spray NS QDAY #1 bottle Referrals: PRIMARY CARE, [Primary Care Provider] - 3-5 Days Time of Disposition: 16:57
[2018-06-04 17:04] VITALS: BP 113/80
== END 2018-06-04 17:04 | disposition home or self-care (01) ==
LOC: ED 11:50
DX: J06.9 Acute upper respiratory infection, unspecified (principal); R10.84 Generalized abdominal pain; I10 Essential (primary) hypertension; E11.9 Type 2 diabetes mellitus without complications; F31.9 Bipolar disorder, unspecified; F25.9 Schizoaffective disorder, unspecified; E78.00 Pure hypercholesterolemia, unspecified; Z90.49 Acquired absence of other specified parts of digestive tract; Z86.718 Personal history of other venous thrombosis and embolism; Z90.710 Acquired absence of both cervix and uterus; Z88.5 Allergy status to narcotic agent; Z88.2 Allergy status to sulfonamides; Z88.8 Allergy status to other drugs, medicaments and biological substances; Z91.040 Latex allergy status
CPT/HCPCS: 36415; 80053; 81001; 81025; 82962; 85025; 99283

== ENCOUNTER 2018-06-08 16:06 | Emergency (ER) | payer MEDICARE ==
[2018-06-08 20:20] LABS: Hemoglobin 12.8 gm/dl (10.1-14.3); Mean Corpuscular HGB Conc 33 % (30-34); Mean Corpuscular Hemoglobin 29 pg (28-32); Mean Corpuscular Volume 87 fl (79-97); Platelet Count 269 K/mm3 (140-440); Red Blood Count 4.48 M/mm3 (3.65-5.03); Red Cell Distribution Width 15.3 % (13.2-15.2)
[2018-06-08 20:33] LABS: INR 0.94 (0.87-1.13)
[2018-06-08 20:34] LABS: Partial Thromboplastin Time 27.5 Sec. (24.2-36.6)
[2018-06-08 20:48] LABS: BUN/Creatinine Ratio 12; Blood Urea Nitrogen 6 mg/dL (7-17); Calcium 10.3 mg/dL (8.4-10.2); Hemolysis Index 2
--- NOTE | 2018-06-09 01:52 | Emergency Department Report ---
ED General Adult HPI - General Chief complaint: Extremity Injury, Lower Stated complaint: LEG PAIN/PAIN 4 DAYS Time Seen by Provider: 06/09/18 01:26 Source: patient, RN notes reviewed, old records reviewed Mode of arrival: Ambulatory Limitations: Other (patient is a poor historian) - History of Present Illness Initial comments: This is a 42-year-old female whom I have evaluated in the past. Her past medical history includes appendectomy, hysterectomy, psychiatric disease, chronic DVT, and chronic lower extremity pain or discomfort. The patient presents to the ER with a primary complaint of lower extremity pain and swelling and discomfort. She reports its been there for years. She is following up with her vascular surgeon in 5 days for intervention, but is concerned that she might need intervention more expediently. She is unable to describe radiation or exacerbating or relieving factors. She has a secondary complaint of shortness of breath. This has been present for 10 years. She reports that it is intermittent, and feels like her face is being "pushed together." She also endorses intermittent chest discomfort, present for years, which does not radiate to the back, arms or neck, she denies vomiting, diaphoresis. -: Gradual, month(s), year(s) Location: chest, left, right, lower extremity Severity scale (0 -10): 7 Quality: other Consistency: other Improves with: other Worsens with: other Associated Symptoms: chest pain, shortness of breath. denies: confusion, diaphoresis, fever/chills, headaches, loss of appetite, malaise, nausea/vomiting , rash, seizure, syncope, weakness, other - Related Data Home Medications Medication Instructions Recorded Confirmed Last Taken Benztropine [Cogentin] 1 mg PO BID 12/03/16 04/06/17 04/06/17 08:00 fluPHENAZine HCl [Prolixin] 5 mg PO HS 04/06/17 04/06/17 04/05/17 Previous Rx's Medication Instructions Recorded Last Taken Type [place] Carbonate [Eskalith] 150 mg PO BID #60 capsule 12/04/16 04/06/17 08:00 Rx Ibuprofen [Motrin 800 MG tab] 800 mg PO Q8H PRN #12 tablet 11/17/17 Unknown Rx Furosemide [Lasix] 20 mg PO QDAY #20 tablet 12/03/17 Unknown Rx traMADol [Ultram 50 MG tab] 50 mg PO Q6HR PRN #12 tablet 12/03/17 Unknown Rx Ibuprofen [Motrin] 600 mg PO Q8H PRN #30 tablet 02/17/18 Unknown Rx Furosemide [Lasix] 20 mg PO DAILY #21 tablet 03/30/18 Unknown Rx Ciprofloxacin HCl [Cipro] 500 mg PO BID 10 Days #20 tablet 05/25/18 Unknown Rx Benzonatate [Tessalon Perles] 100 mg PO Q8HR PRN #20 capsule 06/04/18 Unknown Rx Fluticasone [Flonase] 1 spray NS QDAY #1 bottle 06/04/18 Unknown Rx Allergies Allergy/AdvReac Type Severity Reaction Status Date / Time acetaminophen [From Midol] Allergy Unknown Verified 11/17/17 20:35 haloperidol [From Haldol] Allergy Unknown Verified 11/17/17 20:35 haloperidol lactate Allergy Unknown Verified 11/17/17 20:35 [From Haldol] hydroxyzine HCl Allergy Unknown Verified 11/17/17 20:35 [From Vistaril] hydroxyzine pamoate Allergy Unknown Verified 11/17/17 20:35 [From Vistaril] iodine Allergy Headache Verified 11/17/17 20:35 pamabrom [From Midol] Allergy Unknown Verified 11/17/17 20:35 Sulfa (Sulfonamide Allergy Unknown Verified 11/17/17 20:35 Antibiotics) zolpidem tartrate Allergy Unknown Verified 11/17/17 20:35 [From Ambien] latex AdvReac Itching Verified 11/17/17 20:35 lorazepam [From Ativan] AdvReac Hives Verified 12/03/16 08:52 potassium AdvReac Swelling Verified 12/03/16 08:52 risperidone [From Risperdal] AdvReac Unknown Verified 12/03/16 08:52 trazodone AdvReac Swelling Verified 12/21/16 23:06 ED Review of Systems ROS: Stated complaint: LEG PAIN/PAIN 4 DAYS Other details as noted in HPI Constitutional: denies: fever Eyes: denies: eye discharge ENT: denies: epistaxis Respiratory: shortness of breath Cardiovascular: chest pain Gastrointestinal: denies: vomiting Musculoskeletal: arthralgia, myalgia Skin: denies: lesions Psychiatric: anxiety ED Past Medical Hx - Past Medical History Hx Hypertension: Yes Hx Heart Attack/AMI: No Hx Congestive Heart Failure: Yes Hx Diabetes: Yes Hx Deep Vein Thrombosis: Yes Hx Pulmonary Embolism: No Hx Seizures: Yes Hx Psychiatric Treatment: Yes (bipolar / SCHIZOAFFECTIVE DISORDER) Hx Asthma: No Hx COPD: No Hx Tuberculosis: No Hx HIV: No Additional medical history: high cholesterol, blood clots in legs x6-7 yrs - Surgical History Hx Coronary Stent: No Hx Pacemaker: No Hx Internal Defibrillator: No Hx Cholecystectomy: Yes Hx Appendectomy: Yes Additional Surgical History: hysterectomy. cervical fusion - Social History Smoking Status: Never Smoker Substance Use Type: None - Medications Home Medications: Home Medications Medication Instructions Recorded Confirmed Last Taken Type Benztropine [Cogentin] 1 mg PO BID 12/03/16 04/06/17 04/06/17 08:00 History [place] Carbonate [Eskalith] 150 mg PO BID #60 capsule 12/04/16 04/06/17 08:00 Rx fluPHENAZine HCl [Prolixin] 5 mg PO HS 04/06/17 04/06/17 04/05/17 History Ibuprofen [Motrin 800 MG tab] 800 mg PO Q8H PRN #12 tablet 11/17/17 Unknown Rx Furosemide [Lasix] 20 mg PO QDAY #20 tablet 12/03/17 Unknown Rx traMADol [Ultram 50 MG tab] 50 mg PO Q6HR PRN #12 tablet 12/03/17 Unknown Rx Ibuprofen [Motrin] 600 mg PO Q8H PRN #30 tablet 02/17/18 Unknown Rx Furosemide [Lasix] 20 mg PO DAILY #21 tablet 03/30/18 Unknown Rx Ciprofloxacin HCl [Cipro] 500 mg PO BID 10 Days #20 tablet 05/25/18 Unknown Rx Benzonatate [Tessalon Perles] 100 mg PO Q8HR PRN #20 capsule 06/04/18 Unknown Rx Fluticasone [Flonase] 1 spray NS QDAY #1 bottle 06/04/18 Unknown Rx ED Physical Exam - General Limitations: No Limitations General appearance: alert, in no apparent distress - Head Head exam: Present: atraumatic, normocephalic - Eye Eye exam: Present: normal appearance, EOMI. Absent: nystagmus - ENT ENT exam: Present: normal exam, normal orophraynx, mucous membranes moist, normal external ear exam - Neck Neck exam: Present: normal inspection, full ROM - Respiratory Respiratory exam: Present: normal lung sounds bilaterally. Absent: respiratory distress, chest wall tenderness - Cardiovascular Cardiovascular Exam: Present: regular rate, normal rhythm, normal heart sounds. Absent: bradycardia, tachycardia, irregular rhythm, systolic murmur, diastolic murmur, rubs, gallop - GI/Abdominal GI/Abdominal exam: Present: soft. Absent: distended, tenderness, guarding, rebound, rigid, pulsatile mass - Extremities Exam Extremities exam: Present: normal inspection, pedal edema (the pelvis is stable. ), other (2+ pulses noted in the bilateral upper, lower extremities. Compartments soft. No long bony tenderness. The pelvis is stable.). Absent: calf tenderness - Back Exam Back exam: Present: normal inspection, full ROM. Absent: tenderness, CVA tenderness (R), paraspinal tenderness, vertebral tenderness - Neurological Exam Neurological exam: Present: alert, oriented X3, CN II-XII intact, normal gait, other (Extraocular movements intact. Tongue midline. No facial droop. Facial sensation intact to light touch in the V1, V2, V3 distribution bilaterally. 5 and 5 strength in 4 extremities.. Sensation is intact to light touch in 4 extremities.). Absent: motor sensory deficit - Psychiatric Psychiatric exam: Present: anxious - Skin Skin exam: Present: warm, dry, intact, normal color. Absent: rash ED Course Vital Signs 06/08/18 06/08/18 06/08/18 16:53 18:43 21:02 Temperature 99.3 F 98 F Pulse Rate 94 H 94 H Respiratory 18 18 Rate Blood Pressure 118/61 139/82 Blood Pressure 158/96 [Left] O2 Sat by Pulse 100 98 Oximetry 06/09/18 06/09/18 01:30 02:34 Temperature Pulse Rate 87 Respiratory 18 18 Rate Blood Pressure Blood Pressure [Left] O2 Sat by Pulse Oximetry ED Medical Decision Making - Lab Data Result diagrams: 06/08/18 19:45 06/08/18 19:45 Vital Signs 06/08/18 06/08/18 06/08/18 16:53 18:43 21:02 Temperature 99.3 F 98 F Pulse Rate 94 H 94 H Respiratory 18 18 Rate Blood Pressure 118/61 139/82 Blood Pressure 158/96 [Left] O2 Sat by Pulse 100 98 Oximetry 06/09/18 06/09/18 01:30 02:34 Temperature Pulse Rate 87 Respiratory 18 18 Rate Blood Pressure Blood Pressure [Left] O2 Sat by Pulse Oximetry Lab Results 06/08/18 06/08/18 06/08/18 Range/Units 19:45 19:45 19:45 WBC 9.2 (4.5-11.0) K/mm3 RBC 4.48 (3.65-5.03) M/mm3 Hgb 12.8 (10.1-14.3) gm/dl Hct 39.0 (30.3-42.9) % MCV 87 (79-97) fl MCH 29 (28-32) pg MCHC 33 (30-34) % RDW 15.3 H (13.2-15.2) % Plt Count 269 (140-440) K/mm3 PT 13.0 (12.2-14.9) Sec. INR 0.94 (0.87-1.13) APTT 27.5 (24.2-36.6) Sec. D-Dimer (0-234) ng/mlDDU Sodium 140 (137-145) mmol/L Potassium 4.1 D (3.6-5.0) mmol/L Chloride 99.5 (98-107) mmol/L Carbon Dioxide 28 (22-30) mmol/L Anion Gap 17 mmol/L BUN 6 L (7-17) mg/dL Creatinine 0.5 L (0.7-1.2) mg/dL Estimated GFR > 60 ml/min BUN/Creatinine Ratio 12 % Glucose 87 (65-100) mg/dL Calcium 10.3 H (8.4-10.2) mg/dL Total Creatine Kinase (30-135) units/L Troponin T (0.00-0.029) ng/mL 06/08/18 06/08/18 Range/Units 19:45 19:45 WBC (4.5-11.0) K/mm3 RBC (3.65-5.03) M/mm3 Hgb (10.1-14.3) gm/dl Hct (30.3-42.9) % MCV (79-97) fl MCH (28-32) pg MCHC (30-34) % RDW (13.2-15.2) % Plt Count (140-440) K/mm3 PT (12.2-14.9) Sec. INR (0.87-1.13) APTT (24.2-36.6) Sec. D-Dimer 208.62 (0-234) ng/mlDDU Sodium (137-145) mmol/L Potassium (3.6-5.0) mmol/L Chloride (98-107) mmol/L Carbon Dioxide (22-30) mmol/L Anion Gap mmol/L BUN (7-17) mg/dL Creatinine (0.7-1.2) mg/dL Estimated GFR ml/min BUN/Creatinine Ratio % Glucose (65-100) mg/dL Calcium (8.4-10.2) mg/dL Total Creatine Kinase 85 (30-135) units/L Troponin T < 0.010 (0.00-0.029) ng/mL - EKG Data Rate: normal - EKG Data 06/09/18 02:56 Eyes, 89 beats minute, normal axis, QTC prolonged, high left ventricular voltage , poor R-wave progression, motion artifact, not a STEMI - Radiology Data Radiology results: report reviewed, image reviewed X-ray of the chest is negative for acute disease - Medical Decision Making Differential diagnosis, including but not limited to: Lower extremity DVT, venous insufficiency, arthritis, pneumonia, pulmonary embolus, acute coronary syndrome, hiatal hernia Assessment and plan: 42-year-old female with a primary complaint of lower extremity discomfort, with no obvious clinical indication of DVT, fracture, dislocation, cellulitis or compartment syndrome. She has follow up with her vascular surgeon in 5 days. There does not appear to be an emergent condition at this time, she presented after hours on my evaluation, after the vascular lab had left for the day, and outpatient DVT study has been ordered. Her d- dimer is negative, she is not hypoxic, she is not tachycardic, and she is dorsal to complaint of years of dyspnea. For this reason, I think it is very unlikely that the patient has significant thromboembolic disease or pulmonary embolus, and it is my pain that she does not require advanced imaging of the chest at this time. On a similar note, she's been having chest discomfort for years, and troponin negative 1, and as per the [employer] clinical policy, myocardial infarction may be excluded with 1 set of cardiac enzymes if symptoms have been present for greater than 8 hours. Given that symptoms have been present for years, patient is suitable to follow up as an outpatient. In addition, I find her to be low risk by the heart score. Patient has been in the ER for hours without clinical decompensation and she is medically suitable to follow up as an outpatient. Critical care attestation.: If time is entered above; I have spent that time in minutes in the direct care of this critically ill patient, excluding procedure time. ED Disposition Clinical Impression: Leg pain, Chest pain Disposition: TO HOME OR SELFCARE Is pt being admited?: No Does the pt Need Aspirin: No Condition: Good Instructions: Chest Pain (ED) Additional Instructions: Continue current outpatient medications. Follow up with her primary care doctor or ichthyology teacher within the next 3-5 days for chest pain. Follow up with her vascular surgeon within the next 5 days for your lower extremity discomfort. Contact the vascular lab as noted on in close prescription, and follow-up for lower extremity outpatient DVT study. Return to the ER right away with new, worsening or different symptoms. Take ibuprofen with food over- the-counter every 6 hours as needed for pain. Referrals: [facility] [Other] - 3-5 Days [facility] [Provider Group] - 3-5 Days [facility] [Provider Group] - 3-5 Days
--- NOTE | 2018-06-09 02:43 | XRay Report ---
FINAL REPORT EXAM: XR CXR CLINICAL INDICATIONS: DYSPNEA FINDINGS: Frontal and lateral views the chest were acquired. The heart is normal in size. There is small amount of right basilar linear scar versus atelectasis. No acute consolidative pulmonary infiltrate is seen. IMPRESSION: NO ACTIVE DISEASE IN THE CHEST
[2018-06-09] MEDS ORDERED: MOTRIN PO ONE (03:00)
[2018-06-09 03:19] VITALS: BP 164/87
== END 2018-06-09 03:19 | disposition home or self-care (01) ==
LOC: ED 16:06
DX: R07.89 Other chest pain (principal); M79.662 Pain in left lower leg; M79.661 Pain in right lower leg; R22.43 Localized swelling, mass and lump, lower limb, bilateral; R06.02 Shortness of breath; I11.0 Hypertensive heart disease with heart failure; I50.9 Heart failure, unspecified; E11.9 Type 2 diabetes mellitus without complications; Z86.718 Personal history of other venous thrombosis and embolism; F31.9 Bipolar disorder, unspecified; F25.8 Other schizoaffective disorders; E78.00 Pure hypercholesterolemia, unspecified; Z90.49 Acquired absence of other specified parts of digestive tract; Z90.710 Acquired absence of both cervix and uterus; Z79.899 Other long term (current) drug therapy; Z88.6 Allergy status to analgesic agent; Z88.8 Allergy status to other drugs, medicaments and biological substances
CPT/HCPCS: 36415; 71046; 80048; 82550; 84484; 85027; 85379; 85610; 85730; 93005; 93010